=== PATIENT | female | born 1940 | race Caucasian/White ===

== ENCOUNTER → 2016-09-03 | Outpatient (CLI) | payer BC ==
[~2016-09-03] MED LIST: ASPEC81 PO; ASPI325T45 PO; CYAN10005 PO; GLIP10TA9 PO; LOSA100T65 PO; METF-384 PO; SIMV20TA2 PO; SIMV40TA2 PO
[2016-09-03 10:36] LABS: BASO % 0.3 %; BASO ABS # 0.02 K/uL (0-0.2); COMPLETE YES; EOS % 2.2 %; ESTIMATED AVERAGE GLUCOSE 301 mg/dl; HA1C FLAG Normal (Normal); IG% 0.3 %; LYMPH % 30.4 %; LYMPH ABS # 2.22 K/uL (1.2-3.4); MEAN CELL VOLUME 88.3 fL (80-100); MEAN CORPUSCULAR HEMOGLOBIN 29.1 pg (25-34); MEAN PLATELET VOLUME 10.6 fL (7.4-10.4); NEUT % 57.8 %; PLATELET COUNT 270 K/uL (130-400); RED BLOOD COUNT 4.19 M/uL (4.2-5.4); WHITE BLOOD COUNT 7.31 K/uL (4.8-10.8)
[2016-09-03 10:44] LABS: URINE APPEARANCE CLOUDY (CLEAR); URINE BILIRUBIN NEG (NEG); URINE COLOR YELLOW; URINE EPITHELIAL CELL AUTO >30 /lpf (0-5); URINE NITRITE NEG (NEG); URINE SPECIFIC GRAVITY 1.019 (1.000-1.030); UROBILINOGEN NEG (NEG); ZZUR CULT IF INDIC CLEAN CATCH YES
[2016-09-03 10:56] LABS: MANUAL MICROSCOPIC REQUIRED? NO; REVIEW REQ? YES
[2016-09-03 11:18] LABS: URINE PROTIEN/CREAT RATIO 0.2 (0-0.2); URINE TOTAL PROTEIN 12.5 mg/dl (0-11.9)
[2016-09-03 12:18] LABS: ALT/SGPT 20 U/L (12-78); AST/SGOT 12 U/L (15-37); BLOOD UREA NITROGEN 20 mg/dl (7-18); BUN/CREATININE RATIO 26.6 (10-20); CARBON DIOXIDE 29 mmol/L (21-32); CHLORIDE 101 mmol/L (98-107); CHOLESTEROL 145 mg/dl (0-200); CHOLESTEROL/HDL RATIO 2.2; CREATININE 0.74 mg/dl (0.60-1.20); GLUCOSE 248 mg/dl (70-99); HDL CHOLESTEROL 66 mg/dl; LDL CHOLESTEROL CALCULATED 66 mg/dl; POTASSIUM 4.4 mmol/L (3.5-5.1); SODIUM 138 mmol/L (136-145); TRIGLYCERIDES 64 mg/dl (0-150); VERY LOW DENSITY LIPOPROT CALC 13 mg/dl
[2016-09-03 12:19] LABS: CALCIUM 9.2 mg/dl (8.5-10.1)
== END | disposition home or self-care (01) ==
LOC: C.LAB1850 09:35
PROVIDERS: ATTEND Internal Medicine
DX: E11.9 Type 2 diabetes mellitus without complications (principal); I10 Essential (primary) hypertension; E78.00 Pure hypercholesterolemia, unspecified

== ENCOUNTER → 2016-11-21 | Day surgery (SDC) | payer BC ==
[2016-11-14 11:53] VITALS: Ht 157.5 cm; Wt 71.8 kg
[~2016-11-21] VITALS: Ht 157.5 cm; Wt 71.8 kg
[~2016-11-21] MED LIST changes: -ASPEC81 PO; +EpHEDrine SULFATE INJ 50 MG/ML AMP ONE; +LIDOCAINE HCL 2% 2 ML VIAL (20MG/ML) ONE; +PROPOFOL IV EMULSION 10 MG/ML 20 ML VIAL IV ONE; -SIMV40TA2 PO; +SODIUM CHLORIDE 0.9% 500ML 500 ML IV ONE
--- NOTE | 2016-11-21 08:52 | Endo History and Physical ---
History & Physical Date of Service: Nov 21, 2016. Chief Complaint: Family history of colon cancer (Mother) Referring Physician: Dr. Sim History of Present Illness 76 yo CF who presents for colonoscopy secondary to family history of colon cancer (Mother). Past Medical History Diabetes, Anxiety, Cancer, High Cholesterol, Hypertension, Depression Past Surgical History Hx Cardiac Surgery: No Hx Internal Defibrillator: No Hx Pacemaker: No Hx Abdominal Surgery: No Hx of Implantable Prosthesis: No Hx Post-Op Nausea and Vomiting: No Hx Cancer Surgery: Yes (SKIN CANCER REMOVAL FROM RT ARM) Hx Thoracic Surgery: No Hx Orthopedic: No Hx Urinary Tract Surgery: No Family History Colon CA Social History Smoking Status: Never Smoker Hx Substance Use: No Hx Alcohol Use: No Allergies Coded Allergies: NO KNOWN DRUG ALLERGIES (Verified Allergy, Unknown, ., 11/14/16) Uncoded Allergies: METAL (Allergy, Unknown, RASH, 11/14/16) Current Medications Reported Home Medications Medications Dose Route/Sig Max Daily Dose Days Date Category Vitamin B-12 (Cyanocobalamin) 1,000 Mcg Tab 1,000 Mcg PO DAILY 11/14/16 Reported Zocor (Simvastatin) 20 Mg Tab 20 Mg PO QPM 11/14/16 Reported Aspirin 325 Mg Tab 650 Mg PO UD PRN 02/24/15 Reported Glucophage (Metformin Hcl) 1,000 Mg Tab 1,000 Mg PO BID 02/24/15 Reported Cozaar (Losartan Potassium) 100 Mg Tab 100 Mg PO QPM 02/24/15 Reported Glucotrol (Glipizide) 10 Mg Tab 10 Mg PO BID 02/24/15 Reported Vital Signs Weight (Kilograms): 71.82 Height (Feet): 5 Height (Inches): 2 Physical Exam General Appearance: WD/WN, no apparent distress Respiratory/Chest: Auscultation: breath sounds normal Cardiovascular: Heart Auscultation: RRR Abdomen: Bowel Sounds: normal Inspection & Palpation: soft, non-distended, no tenderness, guarding & rebound Assessment and Plan Assessment: 76 yo CF who presents for colonoscopy secondary to family history of colon cancer (Mother). Plan: Proceed with colonoscopy.
--- NOTE | 2016-11-21 09:56 | Discharge Instructions ---
Endoscopy Patient Instructions Date / Procedure(s) Performed Nov 21, 2016. Colonoscopy Allergy Information Coded Allergies: NO KNOWN DRUG ALLERGIES (Verified Allergy, Unknown, ., 11/14/16) Uncoded Allergies: METAL (Allergy, Unknown, RASH, 11/14/16) Discharge Date / Findings Nov 21, 2016. Internal hemorrhoids Medication Instructions Stopped Medication(s): Glipizide Metformin OK to resume all medications today as prescribed Reported Home Medications Medications Dose Route/Sig Max Daily Dose Days Date Category Vitamin B-12 (Cyanocobalamin) 1,000 Mcg Tab 1,000 Mcg PO DAILY 11/14/16 Reported Zocor (Simvastatin) 20 Mg Tab 20 Mg PO QPM 11/14/16 Reported Aspirin 325 Mg Tab 650 Mg PO UD PRN 02/24/15 Reported Glucophage (Metformin Hcl) 1,000 Mg Tab 1,000 Mg PO BID 02/24/15 Reported Cozaar (Losartan Potassium) 100 Mg Tab 100 Mg PO QPM 02/24/15 Reported Glucotrol (Glipizide) 10 Mg Tab 10 Mg PO BID 02/24/15 Reported Provider Instructions Activity Restrictions - No exercising or heavy lifting for 24 hours. - Do not drink alcohol the day of the procedure. - Do not drive a car or operate machinery until the day after the procedure. - Do not make any important decisions or sign important papers in 24 hours after the procedure. Following Day: - Return to full activity which may include returning to work/school. Diet Start your diet with liquids and light foods (jello, soup, juice, toast). Then eat your usual diet if not nauseated. Treatment For Common After Affects For mild abdominal pain, bloating, or excessive gas: - Rest - Eat lightly - Lie on right side Follow-Up Information Follow-up with Dr Sim as scheduled Anesthesia Information What You Should Know You have had a procedure that required some medicine to reduce anxiety and discomfort. This treatment is called moderate sedation. After receiving the treatment, you may be sleepy, but you will be able to breathe on your own. The effects of the treatment may last for several hours. Follow these instructions along with Activity/Diet recommendations noted above: * Do NOT do anything where dizziness or clumsiness would be dangerous. * Rest quietly at home today, then you can be up and about tomorrow. * Have a responsible person stay with you the rest of today. * You may have had an I.V. today. If so, you may take the dressing off later today. Recommendations Call your doctor if: * Trouble breathing * Continuous vomiting for more than 24 hours * Temperature above 101 degrees * Severe abdominal pain or bloating * Pain not relieved by pain medicine ordered * There is increased drainage or redness from any incision * A large amount of rectal bleeding greater than 2-3 tablespoons. (If you had a polyp/s removed or have hemorrhoids, a small amount of blood - from the rectum is to be expected.) * You have any unanswered questions or concerns. IN THE EVENT OF A SERIOUS EMERGENCY, GO TO THE NEAREST EMERGENCY ROOM Your discharge instructions were prepared by provider José Miguel Wilson. Patient Instructions Signature Page Parisa Lara Patient (or Guardian) Signature/Date: I have read and understand the instructions given to me by my caregivers. Caregiver/RN/Doctor Signature/Date: The above-named patient and/or guardian has received patient instructions on this date. + Original Patient Signature Page (only) stays with chart. Please make copy for patient.
--- NOTE | 2016-11-21 10:06 | GI REPORT ---
Procedure Date: 11/21/2016 9:24 AM THIS REPORT HAS BEEN AMENDED Addendum Number: 1 Addendum Date: 11/21/2016 12:13:52 PM No specimens were obtained on this exam, and therefore, no pathology is pending. No repeat colonoscopy based on patient's age and lack of adenomas. Procedure: Colonoscopy Indications: Family history of colon cancer in a first-degree relative Medicines: Monitored Anesthesia Care Complications: No immediate complications. Estimated Blood Loss: Estimated blood loss: none. Procedure: Pre-Anesthesia Assessment: - Prior to the procedure, a History and Physical was performed, and patient medications and allergies were reviewed. The patient's tolerance of previous anesthesia was also reviewed. The risks and benefits of the procedure and the sedation options and risks were discussed with the patient. All questions were answered, and informed consent was obtained. Prior Anticoagulants: The patient has taken aspirin, last dose was more than 28 days prior to procedure. ASA Grade Assessment: III - A patient with severe systemic disease. After reviewing the risks and benefits, the patient was deemed in satisfactory condition to undergo the procedure. After I obtained informed consent, the scope was passed under direct vision. Throughout the procedure, the patient's blood pressure, pulse, and oxygen saturations were monitored continuously. The scope was introduced through the anus and advanced to the terminal ileum. The colonoscopy was performed without difficulty. The patient tolerated the procedure well. The quality of the bowel preparation was good. The terminal ileum, ileocecal valve, appendiceal orifice, and rectum were photographed. Findings: Non-bleeding internal hemorrhoids were found during retroflexion. The hemorrhoids were small. Impression: - Non-bleeding internal hemorrhoids. - No specimens collected. Recommendation: - Resume previous diet. - Continue present medications. - Repeat colonoscopy for surveillance based on pathology results. - Return to primary care physician as previously scheduled. José Miguel Wilson, DO 11/21/2016 10:05:26 AM This report has been signed electronically. Note Initiated On: 11/21/2016 9:24 AM I attest to the content of the Intraoperative Record and orders documented therein, exceptions below José Miguel Wilson, DO 11/21/2016 12:14:45 PM This report has been signed electronically.
--- NOTE | 2016-11-21 10:10 | Anesthesiology Progress Note ---
Anesthesia Post Op Note Date & Time Nov 21, 2016 at 10:10 Vital Signs Pain Intensity: 0 Vital Signs Past 12 Hours Date Time Temp Pulse Resp B/P (MAP) Pulse Ox O2 Delivery O2 Flow Rate FiO2 11/21/16 10:04 92 20 101/61 (74) 100 Room Air 11/21/16 09:49 85 20 94/41 (58) 93 Room Air 11/21/16 08:40 37.0 85 20 141/89 (106) 100 Room Air Notes Mental Status: alert / awake / arousable, participated in evaluation Pt Amnestic to Procedure: Yes Nausea / Vomiting: adequately controlled Pain: adequately controlled Airway Patency, RR, SpO2: stable & adequate BP & HR: stable & adequate Hydration State: stable & adequate Anesthetic Complications: no major complications apparent
[2016-11-21 10:16] VITALS: BP 122/67; PULSE 94; O2SAT 100
== END | disposition home or self-care (01) ==
LOC: C.GI 08:24
PROVIDERS: ATTEND Internal Medicine
DX: Z80.0 Family history of malignant neoplasm of digestive organs (principal); K64.8 Other hemorrhoids; I10 Essential (primary) hypertension; E11.9 Type 2 diabetes mellitus without complications; F32.9 Major depressive disorder, single episode, unspecified; E78.00 Pure hypercholesterolemia, unspecified; Z79.899 Other long term (current) drug therapy

== ENCOUNTER → 2016-12-04 | Outpatient (CLI) | payer BC ==
[~2016-12-04] MED LIST changes: -EpHEDrine SULFATE INJ 50 MG/ML AMP ONE; -LIDOCAINE HCL 2% 2 ML VIAL (20MG/ML) ONE; -PROPOFOL IV EMULSION 10 MG/ML 20 ML VIAL IV ONE; -SODIUM CHLORIDE 0.9% 500ML 500 ML IV ONE
[2016-12-04 14:04] LABS: ESTIMATED AVERAGE GLUCOSE 240 mg/dl; HA1C FLAG Normal (Normal)
== END | disposition home or self-care (01) ==
LOC: C.LAB1850 12:36
PROVIDERS: ATTEND Nurse Practitioner Family
DX: E11.65 Type 2 diabetes mellitus with hyperglycemia (principal)

== ENCOUNTER → 2017-03-06 | Outpatient (CLI) | payer BC ==
[2017-03-06 10:30] LABS: CREATININE RANDOM URINE 50.4 mg/dl
[2017-03-06 10:41] LABS: RATIO 10.7 mcg/mg (0-30.0)
[2017-03-06 11:14] LABS: ESTIMATED AVERAGE GLUCOSE 197 mg/dl; HA1C FLAG Normal (Normal)
== END | disposition home or self-care (01) ==
LOC: C.LAB1850 09:11
PROVIDERS: ATTEND Nurse Practitioner Family
DX: E11.65 Type 2 diabetes mellitus with hyperglycemia (principal)

== ENCOUNTER 2020-09-11 13:15 | Inpatient (IN) ==
[2020-09-11] MEDS ORDERED: ONDANSETRON INJ 2 MG/ML 2 ML VIAL IV STA (13:51)
[2020-09-11] MEDS ORDERED: MoRPHine SULFATE 4 MG/ML 1 ML CARP\\VIAL IV PRN (13:51)
[2020-09-11] MEDS ORDERED: SODIUM CHLORIDE 0.9% 500 ML IV SCH (14:00)
--- NOTE | 2020-09-11 14:06 | Emergency Department Note ---
Impression & Plan Closed fracture of left hip, Dizziness, Fall ED Provider Note NAME: EZ COBB AGE: 80 SEX: F : 1940 ARRIVES VIA: Walk-In INFORMANT: Patient, ED PROVIDER(S): Miguel Carballo DO CHIEF COMPLAINT: Hip pain HPI: The patient is a 80-year-old female who presented to the emergency department through triage for an evaluation of hip pain. The patient was walking in her driveway yesterday when she became very dizzy and lightheaded. She fell to the ground onto her left side. She states that she was able to ambulate afterwards with significant pain in her left leg. The pain continued to worsen throughout the day. Her son brought her to the emergency department for further evaluation. She did not strike her head. She denies having any neck pain. She states that when she was walking she became dizzy and felt as though she was going to pass out. She denies having any chest pain or difficulty breathing at this time. She denies having any leg swelling or leg pain. She has no abdominal pain. She does complain of low back pain but mostly it is in her left buttocks into her left hip. The patient states that she has a history of arthritis in that hip but has never had surgery on the hip. She has been seen by orthopedics in the past and was diagnosed with arthritis. She also claims to have pain the whole way down her leg. The patient states that she has very severe pain with any movement or ambulation. She rates the pain moderate to severe with any movement. Weightbearing is also severe pain pain is only minimally improved with lying flat. ROS: See above HPI for pertinent positives & negatives. A total of 10 systems reviewed and were otherwise negative. PAST MEDICAL HISTORY: See Below PAST SURGICAL HISTORY: See Below FAMILY HISTORY: See Below SOCIAL HISTORY: See Below HOME MEDICATIONS: See Below ALLERGIES: See Below VITALS: See Below PHYSICAL EXAMINATION: GENERAL: The patient is awake and alert. The patient is very anxious appearing and appears to be in significant pain. EYES: The conjunctivae are clear. The pupils are round and reactive. EARS, NOSE, MOUTH AND THROAT: The nose is without any evidence of any deformity. NECK: The neck is nontender and supple. RESPIRATORY: Normal respiratory effort is noted there is no evidence of wheezing rhonchi or rales CARDIOVASCULAR: Regular rate and rhythm noted there no murmurs rubs or gallops normal S1 normal S2. GASTROINTESTINAL: The abdomen is soft. Abdomen is nontender. BACK: No midline tenderness or or step-off noted range of motion in flexion extension as well as rotation no signs of muscle spasm noted MUSCULOSKELETAL/EXTREMITIES: The left lower extremity is rotated and shortened. There is severe pain with any range of motion testing of the left hip. There is also palpable tenderness over the left leg. There does not appear to be any deformity or pain with range of motion testing of the left knee or left ankle. SKIN: There is no obvious evidence of any rash. There are no petechiae, pallor or cyanosis noted. NEUROLOGIC: Patient is awake alert and oriented x3. MEDICAL DECISION MAKING: The patient is a 80-year-old female who presented to the emergency department for an evaluation of hip pain. The patient was walking in her driveway yesterday and got very dizzy and fell onto her left side. She has been having increasing difficulty ambulating. She presented to the emergency department with severe left hip pain. I discussed the patient's laboratory and radiographic studies with her. She was treated with pain medication in the emergency department. She was feeling somewhat improved on reevaluation. Ultimately she was found to have a left hip fracture. I discussed her case with the on-call [facility] hospitalist. They have agreed to evaluate the patient in the emergency department for further management and disposition. Triage Nursing notes reviewed. Prior medical records reviewed Vital Signs: reviewed and remarkable for elevated blood pressure. Differential diagnosis: Fracture, dislocation, contusion, intra-abdominal, pneumothorax, intrathoracic, intracranial, neurologic, compartment syndrome, rhabdomyolysis, as well as other pathologies. ER treatment provided: See below Diagnostics interpreted by me: ECG: EKG was obtained in the emergency department. My interpretation is sinus tachycardia at 102 bpm. First-degree AV block was suggested. PVCs were noted. There was no acute ST segment abnormalities noted. This was compared to a tracing from February 262014. The ectopy is new compared the previous tracing. Otherwise no significant changes were noted. Cardiac Monitoring: An order was placed for continuous cardiac monitoring. The monitor shows a rate of 98 bpm with sinus rhythm. Laboratory studies: As stated above and show below. Imaging studies: See below Consultation(s): [id number]: I discussed this case with Dr Sandoval who was ui application developer for the [place] hospitalist group. Past Med/Surg History Medical History Bilateral leg edema Diabetes mellitus type II, uncontrolled Hx of basal cell carcinoma Hx of diabetic retinopathy Hypercholesterolemia Hypertension Iliotibial band syndrome Left groin pain Surgical History History of surgical removal of skin lesion from R arm Social History Smoking Status: Never smoker Hx Alcohol Use: Yes Alcohol type: wine Hx Substance Use: No Preferred Language: Mozambican Communication Ability: Effective [place] Required: No Beliefs That Will Affect Care: None Current Living Situation: Alone Feels Safe at Home: Yes Safety Concerns: Feels Safe At This Time Assistive Devices: Denture - Upper and Glasses Allergies Allergies Allergy/AdvReac Type Severity Reaction Status Date / Time No Known Drug Allergies Allergy Unknown . Verified 09/11/20 15:43 METAL Allergy Unknown RASH Uncoded 09/11/20 15:43 Home Meds Home Medications Medication Instructions Recorded Confirmed glipizide 10 mg tablet, extended 10 mg PO QAM tab 07/31/20 09/11/20 release 24 hr losartan 100 mg PO QAM 09/11/20 09/11/20 Previous Rx's Medication Instructions Recorded diclofenac sodium 1 % topical gel 4 g TOPICAL QID #100 g 01/31/20 metformin 1,000 mg tablet 1,000 mg PO BID #180 tab 06/14/20 simvastatin 20 mg tablet 20 mg PO HS #90 tab 07/31/20 Results & Data (ED) Vital Signs Vital Signs - 24 hr 09/11/20 13:19 09/11/20 14:21 09/11/20 14:30 Temperature 36.3 C L Temperature Source Skin Pulse Rate 77 104 H 100 H Pulse Rate from SpO2 Sensor 84 Respiratory Rate 18 20 20 Respiratory Effort / Characteristics Non-Labored Spontaneous Respiratory Depth Normal Respiratory Pattern Regular Blood Pressure 145/83 H 137/79 Blood Pressure Mean 103 98 Blood Pressure Position Sitting Pulse Oximetry 95 95 93 Oxygen Delivery Method Room Air Room Air Sepsis Recent Fever Within 48 Hours No Sepsis New/Unexplained Change in Mental Status N/A Sepsis Action Taken by Nursing No Action Required 09/11/20 14:35 09/11/20 15:00 09/11/20 15:30 Temperature Temperature Source Pulse Rate 106 H 105 H 108 H Pulse Rate from SpO2 Sensor 92 H 103 H 104 H Respiratory Rate 20 7 L 15 Respiratory Effort / Characteristics Respiratory Depth Respiratory Pattern Blood Pressure 164/96 H 161/94 H Blood Pressure Mean 118 116 Blood Pressure Position Pulse Oximetry 92 100 99 Oxygen Delivery Method Sepsis Recent Fever Within 48 Hours Sepsis New/Unexplained Change in Mental Status Sepsis Action Taken by Nursing 09/11/20 16:00 09/11/20 16:54 09/11/20 17:00 Temperature Temperature Source Pulse Rate 95 H 98 H 95 H Pulse Rate from SpO2 Sensor 96 H 97 H 95 H Respiratory Rate 3 L 13 7 L Respiratory Effort / Characteristics Respiratory Depth Respiratory Pattern Blood Pressure 148/86 H 142/79 H 141/76 H Blood Pressure Mean 106 100 97 Blood Pressure Position Pulse Oximetry 99 93 94 Oxygen Delivery Method Sepsis Recent Fever Within 48 Hours Sepsis New/Unexplained Change in Mental Status Sepsis Action Taken by [facility] Medications Current Medication List: was personally reviewed by me Laboratory Data Attestation: I reviewed the patient's lab results. Result diagrams: 09/11/20 17:37 09/11/20 17:37 Lab Results 09/11/20 09/11/20 Range/Units 15:29 15:29 COVID-19 Eval Order Covid19 at [facility] SARS-CoV-2 (PCR) POSITIVE A* (Negative) Administered Medications Insulin Aspart (Insulin Aspart 100 Units/Ml 3 Ml Pen) 0 units SC ACHS JET Stop: 10/11/20 20:59 Last Admin: 09/11/20 22:35 Dose: 1 units Documented by: [id number] Cosigned by: [id number] Simvastatin (Simvastatin 20 Mg Tab) 20 mg PO HS JET Stop: 10/11/20 20:59 Last Admin: 09/11/20 22:33 Dose: 20 mg Documented by: [id number] Discontinued Medications Heparin Sodium (Porcine) (Heparin Sod 5,000 Unit/0.5 Ml Vial) 5,000 units SQ Q12 JET Stop: 10/11/20 20:59 Last Admin: 09/11/20 23:12 Dose: Not Given Documented by: [id number] Sodium Chloride (Nss) 500 mls @ 999 mls/hr IV .Q31M JET Stop: 09/11/20 14:30 Last Infusion: 09/11/20 15:03 Dose: 999 mls/hr Documented by: [id number] Admin: 09/11/20 14:31 Dose: 999 mls/hr Documented by: [id number] Morphine Sulfate (Morphine Sulfate 4 Mg/Ml 1 Ml Carp\Vial) 4 mg IV Q30M PRN PRN Reason: Pain Stop: 09/25/20 13:50 Last Admin: 09/11/20 14:30 Dose: 4 mg Documented by: [id number] Ondansetron HCl (Ondansetron Inj 2 Mg/Ml 2 Ml Vial) 4 mg IV NOW STA Stop: 09/11/20 13:52 Last Admin: 09/11/20 14:30 Dose: 4 mg Documented by: [id number] Imaging Data Radiologist's Impression: Cervical Spine CT 09/11/20 13:[address] DOSE: HISTORY: fall TECHNIQUE: Multiaxial CT images of the cervical spine were performed and reformatted in the sagittal and coronal plane without the use of contrast. A dose lowering technique was utilized adhering to the principles of ALARA. COMPARISON: None. FINDINGS: No fractures. No subluxation. Prevertebral soft tissues and the C1-C2 interval are intact. No pneumothorax. Broad-based posterior disc osteophyte complexes at C3-C4, C4-C5, C5-C6 resulting in mild central canal narrowing. IMPRESSION: No fractures within the cervical spine. ACT 112: Negative or not required by law. Electronically signed by: Lan Shrestha M.D. 09/11/2020 4:52 PM Chest X-Ray 09/11/20 13:51 XR chest 1V portable CLINICAL HISTORY: weakness COMPARISON STUDY: 02/24/2015 FINDINGS: The heart is borderline enlarged. There is mild prominence elevation of interstitium suggesting mild pulmonary vascular congestion. There is no lobar consolidation. There are no significant pleural effusions.[ IMPRESSION: 1. Mild elevation of the interstitium, likely secondary to mild pulmonary vascular congestion. No evidence of lobar consolidation ACT 112: Negative or not required by law. Electronically signed by: El Robles M.D. 09/11/2020 3:[address] 09/11/20 13:[address] DOSE: 936.71 mGy.cm HISTORY: fall TECHNIQUE: Multiaxial CT images of the head were performed without the use of intravenous contrast. Automated exposure control was utilized for this study. A dose lowering technique was utilized adhering to the principles of ALARA. Comparison: None. Findings: The paranasal sinuses and mastoid air cells are clear. The calvarium and skull base are intact. The ventricles and sulci are within normal limits. There is no mass, hematoma, midline shift, or acute infarct. Impression: No acute intracranial abnormality. ACT 112: Negative or not required by law. Electronically signed by: Lan Shrestha M.D. 09/11/2020 4:47 PM Hip/Pelvis X-Ray 09/11/20 13:51 XR hip LT 2V w pelvis HISTORY: 80 years-old Female fall . Acute pelvic and left hip pain status post fall COMPARISON: Left hip radiographs 01/27/2020 TECHNIQUE: AP view the pelvis with 2 views of the left hip FINDINGS: There is an acute fracture there is an acute transcervical fracture of the left proximal femur. Mild cortical impaction with lateral displacement measuring up to 10 mm. Soft tissue swelling lateral to left hip. Mild to moderate osteoarthritis of the hips. No dislocation or avascular necrosis. Arterial calcifications. 1.8 cm calcification of the mid pelvis may reflect a calcified uterine fibroid. IMPRESSION: Acute mildly displaced and impacted transcervical fracture of the left femur. ACT 112: Negative or not required by law. The above report was generated using voice recognition software. It may contain grammatical, syntax or spelling errors. Electronically signed by: Blaine Sherman M.D. 09/11/2020 3:38 PM Tibia/Fibula X-Ray 09/11/20 13:51 XR tibia fibula LT 2V CLINICAL HISTORY: Left lower leg pain following fall. COMPARISON: Left knee radiographs August 01, 2020. Left tibia and fibular radiograph July 30, 2019. FINDINGS: No acute fracture of the left tibia or fibula is identified. There is moderate vascular calcification. Chondrocalcinosis within the menisci of the left knee. There are suspected soft tissue swelling overlying the proximal to mid shaft of the left tibia. IMPRESSION: No acute fracture of the left tibia or fibula. ACT 112: Negative or not required by law. Electronically signed by: Zach Chang M.D. 09/11/2020 3:38 PM Discharge Plan Visit Data Chief Complaint: Fall Stated Complaint: FALL LAST NIGHT ON STONES ON LEFT HIP,PAIN IN HIP ED Provider: Miguel Carballo Discharge Problem: Closed fracture of left hip, Dizziness, Fall Patient Disposition: Admitted As Inpatient Condition: Good Discharge Instructions Interventions: ED Discharge Assessment Last Done: 09/11/20 20:48 Discharge Problem: Closed fracture of left hip Qualifiers: Encounter type: initial encounter Qualified Code(s): S72.002A - Fracture of unspecified part of neck of left femur, initial encounter for closed fracture Fall Qualifiers: Encounter type: initial encounter Qualified Code(s): W19.XXXA - Unspecified fall, initial encounter
--- NOTE | 2020-09-11 15:36 | XRay Report ---
XR chest 1V portable CLINICAL HISTORY: weakness COMPARISON STUDY: 02/24/2015 FINDINGS: The heart is borderline enlarged. There is mild prominence elevation of interstitium sugges ting mild pulmonary vascular congestion. There is no lobar consolidation. There are no significant pl eural effusions.[ IMPRESSION: 1. Mild elevation of the interstitium, likely secondary to mild pulmonary vascular congestion. No jimi dence of lobar consolidation ACT 112: Negative or not required by law. Electronically signed by: El Robles M.D. 09/11/2020 3:35 PM
--- NOTE | 2020-09-11 15:40 | XRay Report ---
XR tibia fibula LT 2V CLINICAL HISTORY: Left lower leg pain following fall. COMPARISON: Left knee radiographs August 01, 2020. Left tibia and fibular radiograph July 30, 2019. FINDINGS: No acute fracture of the left tibia or fibula is identified. There is moderate vascular ca lcification. Chondrocalcinosis within the menisci of the left knee. There are suspected soft tissue s welling overlying the proximal to mid shaft of the left tibia. IMPRESSION: No acute fracture of the left tibia or fibula. ACT 112: Negative or not required by law. Electronically signed by: Zach Chang M.D. 09/11/2020 3:38 PM
--- NOTE | 2020-09-11 15:40 | XRay Report ---
XR hip LT 2V w pelvis HISTORY: 80 years-old Female fall . Acute pelvic and left hip pain status post fall COMPARISON: Left hip radiographs 01/27/2020 TECHNIQUE: AP view the pelvis with 2 views of the left hip FINDINGS: There is an acute fracture there is an acute transcervical fracture of the left proximal femur. Mild cortical impaction with lateral displacement measuring up to 10 mm. Soft tissue swelling lateral to l eft hip. Mild to moderate osteoarthritis of the hips. No dislocation or avascular necrosis. Arterial calcifications. 1.8 cm calcification of the mid pelvis may reflect a calcified uterine fibroid. IMPRESSION: Acute mildly displaced and impacted transcervical fracture of the left femur. ACT 112: Negative or not required by law. The above report was generated using voice recognition software. It may contain grammatical, syntax o r spelling errors. Electronically signed by: Blaine Sherman M.D. 09/11/2020 3:38 PM
--- NOTE | 2020-09-11 16:49 | CT Scan Report ---
HEAD CT NONCONTRAST CT DOSE: 936.71 mGy.cm HISTORY: fall TECHNIQUE: Multiaxial CT images of the head were performed without the use of intravenous contrast. A utomated exposure control was utilized for this study. A dose lowering technique was utilized adheri ng to the principles of ALARA. Comparison: None. Findings: The paranasal sinuses and mastoid air cells are clear. The calvarium and skull base are int act. The ventricles and sulci are within normal limits. There is no mass, hematoma, midline shift, or acute infarct. Impression: No acute intracranial abnormality. ACT 112: Negative or not required by law. Electronically signed by: Lan Shrestha M.D. 09/11/2020 4:47 PM
--- NOTE | 2020-09-11 16:53 | CT Scan Report ---
CERVICAL SPINE CT CT DOSE: HISTORY: fall TECHNIQUE: Multiaxial CT images of the cervical spine were performed and reformatted in the sagittal and coronal plane without the use of contrast. A dose lowering technique was utilized adhering to th e principles of ALARA. COMPARISON: None. FINDINGS: No fractures. No subluxation. Prevertebral soft tissues and the C1-C2 interval are intact. No pneumothorax. Broad-based posterior disc osteophyte complexes at C3-C4, C4-C5, C5-C6 resulting in mild central canal narrowing. IMPRESSION: No fractures within the cervical spine. ACT 112: Negative or not required by law. Electronically signed by: Lan Shrestha M.D. 09/11/2020 4:52 PM
--- NOTE | 2020-09-11 16:56 | History & Physical Report ---
Date of Service September 11, 2020 Assessment & Plan (1) Hip fracture: Transcervical fracture of left femur Admit to general medical bed Analgesia as needed for pain Consults orthopedics for further management, suspect patient will require operative repair Heparin 5000 subcu every 8h, hold prior to surgery (2) Diabetes mellitus type II, uncontrolled: Hold Metformin and glipizide for now Sliding scale insulin with meals. Patient is not on any basal insulin Check hemoglobin A1c (3) Hypercholesterolemia: Patient is on simvastatin 20 mg at home, continue equivalent dosing here (4) Hypertension: Mildly elevated blood pressure 142/79, likely secondary to acute issues Continue medications as per outpatient, appears to be only on losartan 100 mg daily History of Present Illness Chief Complaint: Fall Primary Care Provider: Noam Sim MD This is a 80-year-old female past history hyperlipidemia, type 2 diabetes mellitus, and hypertension who presents today status post fall. Patient is accompanied by her daughter, both are good historians. Patient tells me that yesterday evening she was ambulating down her walkway. This is gravel and has a steep grade to it. She tripped and fell, landing on her left side. She had significant pain as soon as she landed. She was not able to get up on her own power and her son had to help her up. She cannot bear any weight on the left leg. Patient spent the night dealing with the pain, however when she woke in the morning the pain was much worse she was brought to the emergency room by her family. Work-up revealed a left transcervical fracture of the femur. Patient is now being mated for further treatment. At the time my evaluation, patient tells me she has minimal pain in the left lateral hip, with some radiations into the groin if she moves. She is otherwise comfortable denies any other issues such as chest pain, shortness of breath, abdominal pain, palpitations, or other issues. Allergies Allergy/AdvReac Type Severity Reaction Status Date / Time No Known Drug Allergies Allergy Unknown . Verified 09/11/20 15:43 METAL Allergy Unknown RASH Uncoded 09/11/20 15:43 Home Medications Medication Instructions Recorded Confirmed Type diclofenac sodium 1 % topical gel 4 g TOPICAL QID #100 g 01/31/20 09/11/20 Rx metformin 1,000 mg tablet 1,000 mg PO BID #180 tab 06/14/20 09/11/20 Rx glipizide 10 mg tablet, extended 10 mg PO QAM tab 07/31/20 09/11/20 History release 24 hr simvastatin 20 mg tablet 20 mg PO HS #90 tab 07/31/20 09/11/20 Rx losartan 100 mg PO QAM 09/11/20 09/11/20 History Past Med/Surg History Medical History Bilateral leg edema Diabetes mellitus type II, uncontrolled Hx of basal cell carcinoma Hx of diabetic retinopathy Hypercholesterolemia Hypertension Iliotibial band syndrome Left groin pain Surgical History History of surgical removal of skin lesion from R arm Social History Smoking Status: Never smoker Feels Safe at Home: Yes Review of Systems Constitutional: no fever, no chills, no weakness, no weight loss and no weight gain Eyes: as per Subjective / HPI Respiratory: no cough, no chest congestion, no dyspnea and no dyspnea on exertion Cardiovascular: no chest pain, no orthopnea, no palpitations, no lightheadedness and no edema Gastrointestinal: no abdominal pain, no nausea, no vomiting, no constipation and no diarrhea/loose stools Genitourinary: no dysuria, no difficulty urinating, no urinary frequency, no urinary hesitancy, no urinary urgency and no flank pain Musculoskeletal: + joint pain and + problem reported; no back pain, no neck pain, no stiffness and no myalgia Integumentary: no rash Neurologic: no gait abnormality, no unsteadiness, no falls and no generalized weakness Physical Exam Constitutional: + frail appearing and cooperative; no acute distress Neck: trachea midline, no thyromegaly Respiratory: normal respiratory effort Auscultation: lungs clear to auscultation bilaterally; no crackles, no rales, no rhonchi and no wheezes Cardiovascular: Rate/Rhythm: regular rate and regular rhythm Heart Sounds: normal S1, normal S2 and + murmur Gastrointestinal (Abdomen): Inspection/Auscultation: abdomen normal to inspection Percussion/Palpation: abdomen soft; abdomen nontender, no guarding, abdomen not rigid and no hepatosplenomegaly Musculoskeletal: Left leg shorter, externally rotated. Distal pulses intact Skin: no rashes, warm and dry Results & Data Results & Data ([facility]) Vital Signs (Past 12 Hours) Vital Signs Temp Pulse Resp BP Pulse Ox 09/11/20 16:00 95 H 3 L 148/86 H 99 09/11/20 15:30 108 H 15 161/94 H 99 09/11/20 15:00 105 H 7 L 164/96 H 100 09/11/20 14:35 106 H 20 92 09/11/20 14:30 100 H 20 137/79 93 09/11/20 14:21 104 H 20 95 09/11/20 13:19 36.3 C L 77 18 145/83 H 95 Diagnostic Findings XR hip LT 2V w pelvis HISTORY: 80 years-old Female fall . Acute pelvic and left hip pain status post fall COMPARISON: Left hip radiographs 01/27/2020 TECHNIQUE: AP view the pelvis with 2 views of the left hip FINDINGS: There is an acute fracture there is an acute transcervical fracture of the left proximal femur. Mild cortical impaction with lateral displacement measuring up to 10 mm. Soft tissue swelling lateral to left hip. Mild to moderate osteoarthritis of the hips. No dislocation or avascular necrosis. Arterial calcifications. 1.8 cm calcification of the mid pelvis may reflect a calcified uterine fibroid. IMPRESSION: Acute mildly displaced and impacted transcervical fracture of the left femur. PG Care Time/CCT Total # of Minutes Spent Total Time Spent with Patient: Total time spent is greater than 50% in coordination of care (as documented) at patient's floor/unit and/or counseling patient: Coding Level of Care Code 24853 Initial Inpt Care Lvl 3 Diagnoses Hip fracture S72.009A Diabetes mellitus type II, uncontrolled E11.65 Hypercholesterolemia E78.00 Hypertension I10
[2020-09-11 17:57] LABS: Basophils # (auto) 0.01 K/uL (0-0.2); Basophils % (auto) 0.1 %; Eosinophils # (auto) 0.03 K/uL (0-0.5); Eosinophils % (auto) 0.3 %; Hematocrit (blood only) 31.6 % (37-47); Hemoglobin 10.6 g/dL (12.0-16.0); Immature Granulocytes # (auto) 0.02 K/uL (0.00-0.02); Immature Granulocytes % (auto) 0.2 %; Lymphocytes # (auto) 0.88 K/uL (1.2-3.4); Lymphocytes % (auto) 8.2 %; Mean Corpuscular Hemoglobin 30.5 pg (25-34); Mean Corpuscular Hgb Conc 33.5 g/dL (32-36); Mean Corpuscular Volume 91.1 fL (80-100); Mean Platelet Volume 10.7 fL (7.4-10.4); Monocytes # (auto) 0.89 K/uL (0.11-0.59); Monocytes % (auto) 8.3 %; Neutrophils # (auto) 8.84 K/uL (1.4-6.5); Neutrophils % (auto) 82.9 %; Platelet Count 225 K/uL (130-400); RDW Coefficient of Variation 13.7 % (11.5-14.5); RDW Standard Deviation 45.7 fL (36.4-46.3); Red Blood Count 3.47 M/uL (4.2-5.4); White Blood Count 10.67 K/uL (4.8-10.8)
[2020-09-11 18:08] LABS: INR 1.1 (0.9-1.1); Partial Thromboplastin Time 26.6 Seconds (21.0-31.0); Prothrombin Time 10.7 Seconds (9.0-12.0)
[2020-09-11 18:16] LABS: Alanine Aminotransferase 18 U/L (12-78); Albumin Level 3.2 gm/dl (3.4-5.0); Aspartate Aminotransferase 17 U/L (15-37); BUN Creatinine Ratio 29.8 (10-20); Blood Urea Nitrogen 15 mg/dl (7-18); Calcium 8.3 mg/dl (8.5-10.1); Carbon Dioxide 30 mmol/L (21-32); Chloride 104 mmol/L (98-107); Creatinine Clr Calc Pharmacy 73.3 ml/min; Est GFR (African American) 107.4 ml/min; Est GFR (Non-African American) 92.7 ml/min; Glucose 176 mg/dl (70-99); Magnesium 1.8 mg/dl (1.8-2.4); Potassium 3.8 mmol/L (3.5-5.1); Sodium 138 mmol/L (136-145)
[2020-09-11 18:27] LABS: Alkaline Phosphatase 55 U/L (45-117); Bilirubin,Total 0.6 mg/dl (0.2-1); Creatine Kinase 130 U/L (26-192); Globulin 3.1 gm/dl (2.5-4.0); Total Protein 6.3 gm/dl (6.4-8.2); Troponin I < 0.015 ng/ml (0-0.045)
[2020-09-11] MEDS ORDERED: GLUCOSE 40% GEL 15 GM TUBE PO PRN (19:21)
[2020-09-11] MEDS ORDERED: GLUCOSE 10 TABS/TUBE PO PRN (19:21)
[2020-09-11] MEDS ORDERED: CARBOHYDRATES FOR HYPOGLYCEMIA PO PRN (19:21)
[2020-09-11] MEDS ORDERED: DEXTROSE 50% 50 ML SYRINGE IV PRN (19:21)
[2020-09-11] MEDS ORDERED: GLUCAGON FOR INJ 1 MG VIAL SQ PRN (19:21)
[2020-09-11] MEDS ORDERED: HEPARIN SOD 5,000 UNIT/0.5 ML VIAL SQ SCH (21:00)
[2020-09-11] MEDS ORDERED: INSULIN ASPART 100 UNITS/ML 3 ML PEN SC SCH (21:00)
[2020-09-11 21:04] LABS: Appearance Urine Clear (Clear); Bacteria Urine Automated Negative (Negative); Bilirubin Urine Negative (Negative); Blood Urine Negative (Negative); Color Urine Yellow; Glucose Urine UA Trace (Negative); Ketones Urine Trace (Negative); Leukocyte Esterase Urine 1+ (Negative); Nitrite Urine Negative (Negative); Protein Urine Negative (Negative); RBC Urine Automated 0-4 /hpf (0-4); Specific Gravity Urine 1.016 (1.000-1.030); Urobilinogen Urine Negative (Negative); pH Urine 6.5 (4.5-7.5)
[2020-09-11] MEDS ORDERED: ceFAZolin 2000MG 2,000 MG/15 ML SYR IV SCH (22:00)
[2020-09-11] MEDS: SIMVASTATIN 20 MG TAB PO SCH (22:33)
[2020-09-12] MEDS ORDERED: Nursing to Pharmacy Communication SCH ×2 (02:15→21:45)
[2020-09-12] MEDS ORDERED: ceFAZolin 2000MG 2,000 MG/15 ML SYR IV SCH (06:00)
--- NOTE | 2020-09-12 06:32 | Electrocardiogram Report ---
Test Reason : Blood Pressure : / mmHG Vent. Rate : 102 BPM Atrial Rate : 102 BPM P-R Int : 180 ms QRS Dur : 068 ms QT Int : 344 ms P-R-T Axes : 059 -16 065 degrees QTc Int : 448 ms Sinus tachycardia with frequent Premature ventricular complexes Otherwise normal ECG When compared with ECG of 26-FEB-2015 06:30, Premature ventricular complexes are now Present Confirmed by Bernardo Suarez ([id number]) on 09/12/2020 6:32:23 AM Referred By: REFERRED SELF Confirmed By:Bernardo Suarez
--- NOTE | 2020-09-12 06:40 | Orthopedic Consultation ---
Date of Service September 12, 2020 Assessment & Plan (1) Closed fracture of left hip: I discussed the diagnosis and treatment options with her at bedside. I did recommend a left hip hemiarthroplasty.She would like to proceed. She understands the risk, benefits, and alternatives to the procedure. She is currently n.p.o. and on the operating room schedule for later today. History of Present Illness Reason for Consultation: Left femoral neck fracture . Requesting Physician: . Attending Physician: Eulalio Sandoval DO Parisa is a pleasant 80-year-old female who lives by herself. She is a community ambulator without assistance. Unfortunately she fell yesterday. She had immediate left hip pain. She came to the emergency room where radiographs demonstrated a displaced left femoral neck fracture. She was admitted to the hospitalist service. She did test positive for Covid. Orthopedics was consulted to evaluate and treat. . Allergies Allergy/AdvReac Type Severity Reaction Status Date / Time No Known Drug Allergies Allergy Unknown . Verified 09/11/20 15:43 METAL Allergy Unknown RASH Uncoded 09/11/20 15:43 Home Medications Medication Instructions Recorded Confirmed Type diclofenac sodium 1 % topical gel 4 g TOPICAL QID #100 g 01/31/20 09/11/20 Rx metformin 1,000 mg tablet 1,000 mg PO BID #180 tab 06/14/20 09/11/20 Rx glipizide 10 mg tablet, extended 10 mg PO QAM tab 07/31/20 09/11/20 History release 24 hr simvastatin 20 mg tablet 20 mg PO HS #90 tab 07/31/20 09/11/20 Rx losartan 100 mg PO QAM 09/11/20 09/11/20 History Past Med/Surg History Medical History Bilateral leg edema Diabetes mellitus type II, uncontrolled Hx of basal cell carcinoma Hx of diabetic retinopathy Hypercholesterolemia Hypertension Iliotibial band syndrome Left groin pain Surgical History History of surgical removal of skin lesion from R arm Social History Smoking Status: Never smoker Hx Alcohol Use: Yes Alcohol type: wine Hx Substance Use: No Preferred Language: Mongolian Communication Ability: 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 Physical Exam On physical examination of the left hip, her leg lengths are about equal. She has pain with logroll of her left leg. All of her pains in her left groin. . Constitutional WD/WN, vitals as above Eyes PERRL, conjunctivae normal, anicteric sclerae ENMT external ear and nose normal, oropharynx normal Neck trachea midline, no thyromegaly Respiratory normal respiratory effort Cardiovascular RRR, no murmur, no edema Gastrointestinal (Abdomen) normal bowel sounds, soft, nontender, no hepatosplenomegaly Psychiatric A+Ox3, euthymic affect Results & Data Results & Data Laboratory Results . Diagnostic Findings X-rays of the left hip do show a displaced left femoral neck fracture. . PG Care Time/CCT Total # of Minutes Spent Total Time Spent with Patient: Total time spent is greater than 50% in coordination of care (as documented) at patient's floor/unit and/or counseling patient: Coding Level of Care Code 68361 Inpt Consult Level 4 (57 - DECISION FOR SURGERY) Diagnoses Closed fracture of left hip S72.002A Encounter type: initial encounter (1) Closed fracture of left hip Encounter type: initial encounter Qualified Code(s): S72.002A - Fracture of unspecified part of neck of left femur, initial encounter for closed fracture
[2020-09-12] MEDS: INSULIN ASPART 100 UNITS/ML 3 ML PEN SC SCH ×4 (07:12→22:53)
[2020-09-12] MEDS: LOSARTAN POTASSIUM 50 MG TAB PO SCH (08:07)
[2020-09-12] MEDS: MoRPHine SULFATE 2 MG/ML CARP IV PRN ×2 (08:07→16:33)
[2020-09-12 08:34] LABS: Basophils # (auto) 0.01 K/uL (0-0.2); Basophils % (auto) 0.1 %; Eosinophils # (auto) 0.18 K/uL (0-0.5); Eosinophils % (auto) 1.7 %; Hematocrit (blood only) 33.3 % (37-47); Hemoglobin 10.9 g/dL (12.0-16.0); Immature Granulocytes # (auto) 0.02 K/uL (0.00-0.02); Immature Granulocytes % (auto) 0.2 %; Lymphocytes # (auto) 1.24 K/uL (1.2-3.4); Lymphocytes % (auto) 11.8 %; Mean Corpuscular Hemoglobin 29.9 pg (25-34); Mean Corpuscular Hgb Conc 32.7 g/dL (32-36); Mean Corpuscular Volume 91.2 fL (80-100); Mean Platelet Volume 11.2 fL (7.4-10.4); Monocytes # (auto) 1.09 K/uL (0.11-0.59); Monocytes % (auto) 10.4 %; Neutrophils # (auto) 7.93 K/uL (1.4-6.5); Neutrophils % (auto) 75.8 %; Platelet Count 215 K/uL (130-400); RDW Coefficient of Variation 13.9 % (11.5-14.5); RDW Standard Deviation 46.1 fL (36.4-46.3); Red Blood Count 3.65 M/uL (4.2-5.4); White Blood Count 10.47 K/uL (4.8-10.8)
[2020-09-12 08:44] LABS: Prothrombin Time 10.6 Seconds (9.0-12.0)
[2020-09-12 09:05] LABS: BUN Creatinine Ratio 31.2 (10-20); Calcium 9.1 mg/dl (8.5-10.1); Creatinine Clr Calc Pharmacy 85.3 ml/min; Est GFR (African American) 112.9 ml/min; Est GFR (Non-African American) 97.4 ml/min; Magnesium 1.7 mg/dl (1.8-2.4); Potassium 3.7 mmol/L (3.5-5.1)
[2020-09-12 09:17] LABS: Estimated Average Glucose 180 mg/dl; Hemoglobin A1C 7.9 % (4.5-5.6)
--- NOTE | 2020-09-12 11:26 | Anesthesiology Consultation ---
Date of Service September 12, 2020 Assessment & Plan (1) Encounter for pre-operative examination: Chart Review Chart Review: Acceptable Risk for Surgery and Patient NOT seen in Pre Admission Testing Consults Requested none History Surgery Operation Date: 09/12/20 11:50 Proposed Procedures p Left Hip Hemiarthroplasty Cemented Biomet - Shamar Keller MD Height/Weight Height: 5 ft 2 in Weight: 57.606 kg Allergies Allergy/AdvReac Type Severity Reaction Status Date / Time No Known Drug Allergies Allergy Unknown . Verified 09/11/20 15:43 METAL Allergy Unknown RASH Uncoded 09/11/20 15:43 Medications Home Medications Medication Instructions Recorded Confirmed Last Taken diclofenac sodium 1 % topical gel 4 g TOPICAL QID #100 g 01/31/20 09/11/20 Unknown metformin 1,000 mg tablet 1,000 mg PO BID #180 tab 06/14/20 09/11/20 09/11/20 glipizide 10 mg tablet, extended 10 mg PO QAM tab 07/31/20 09/11/20 09/10/20 release 24 hr simvastatin 20 mg tablet 20 mg PO HS #90 tab 07/31/20 09/11/20 09/09/20 losartan 100 mg PO QAM 09/11/20 09/11/20 09/10/20 Active Medications Generic Name Dose Route Start Last Admin Trade Name Freq PRN Reason Stop Dose Admin Lactated Ringer's 1,000 mls @ 75 mls/hr 09/12/20 14:30 09/12/20 14:36 Lr IV 10/12/20 14:29 75 mls/hr .[id number] JET Administration Insulin Aspart 0 units 09/12/20 06:00 09/12/20 12:42 Insulin Aspart 100 Units/Ml 3 Ml Pen SC 10/11/20 20:59 1 units Q6 JET Administration Losartan Potassium 100 mg 09/12/20 09:00 09/12/20 08:07 Losartan Potassium 50 Mg Tab PO 10/12/20 08:59 100 mg QAM JET Administration Morphine Sulfate 2 mg 09/11/20 19:21 09/12/20 16:33 Morphine Sulfate 2 Mg/Ml Carp IV 09/25/20 19:20 2 mg Q6H PRN Administration Pain Simvastatin 20 mg 09/11/20 21:00 09/11/20 22:33 Simvastatin 20 Mg Tab PO 10/11/20 20:59 20 mg HS JET Administration Past Medical History Medical History (Updated 09/12/20 @ 11:25 by Kadeem Perez MD) Bilateral leg edema Diabetes mellitus type II, uncontrolled Exposure to COVID-19 virus Hx of basal cell carcinoma Hx of diabetic retinopathy Hypercholesterolemia Hypertension Iliotibial band syndrome Left groin pain Past Surgical History Surgical History History of surgical removal of skin lesion from R arm Social History Smoking Status: Never smoker Hx Alcohol Use: Yes Alcohol type: wine alcohol intake frequency: holidays/special occasions only Hx Substance Use: No Physical Exam Vital Signs Last Vital Signs Temp 37.2 C 09/12/20 07:49 Pulse 88 09/12/20 07:49 Resp 16 09/12/20 07:49 BP 130/72 09/12/20 07:49 Pulse Ox 100 09/12/20 07:49 Testing Laboratory Results 09/12/20 07:54 09/12/20 07:54 PT 10.6 Seconds (9.0-12.0) 09/12/20 07:54 INR 1.0 (0.9-1.1) 09/12/20 07:54 APTT 26.6 Seconds (21.0-31.0) 09/11/20 17:37 Hemoglobin A1c 7.9 % (4.5-5.6) H 09/12/20 07:54 Urine Color Yellow 09/11/20 20:24 Urine Appearance Clear (Clear) 09/11/20 20:24 Urine pH 6.5 (4.5-7.5) 09/11/20 20:24 Ur Specific [place] 1.016 (1.000-1.030) 09/11/20 20:24 Urine Protein Negative (Negative) 09/11/20 20:24 Urine Glucose (UA) Trace (Negative) H 09/11/20 20:24 Urine Ketones Trace (Negative) H 09/11/20 20:24 Urine Nitrite Negative (Negative) 09/11/20 20:24 Ur Leukocyte Esterase 1+ (Negative) H 09/11/20 20:24 Urine WBC (Auto) 1-5 /hpf (0-5) 09/11/20 20:24 Urine RBC (Auto) 0-4 /hpf (0-4) 09/11/20 20:24 U Hyaline Cast (Auto) 1-5 /lpf (0-5) 09/11/20 20:24 U Epithel Cells (Auto) 10-20 /lpf (0-5) H 09/11/20 20:24 Urine Bacteria (Auto) Negative (Negative) 09/11/20 20:24 Blood Type B Positive 09/11/20 21:43 Antibody Screen NEGATIVE 09/11/20 21:43 09/12/20 09/12/20 12:29 05:52 POC Glucose 151 H 171 H covid POSITIVE 09/11/20 Electrocardiogram Date: 09/11/20 DICTATED BY: Bernardo Suarez MD Test Reason : Blood Pressure : / mmHG Vent. Rate : 102 BPM Atrial Rate : 102 BPM P-R Int : 180 ms QRS Dur : 068 ms QT Int : 344 ms P-R-T Axes : 059 -16 065 degrees QTc Int : 448 ms Sinus tachycardia with frequent Premature ventricular complexes Otherwise normal ECG When compared with ECG of 26-FEB-2015 06:30, Premature ventricular complexes are now Present Confirmed by Bernardo Suarez ([id number]) on 09/12/2020 6:32:23 AM Chest X-Ray Date: 09/11/20 XR chest 1V portable CLINICAL HISTORY: weakness COMPARISON STUDY: 02/24/2015 FINDINGS: The heart is borderline enlarged. There is mild prominence elevation of interstitium suggesting mild pulmonary vascular congestion. There is no lobar consolidation. There are no significant pleural effusions.[ IMPRESSION: 1. Mild elevation of the interstitium, likely secondary to mild pulmonary vascular congestion. No evidence of lobar consolidation
[2020-09-12] MEDS: LACTATED RINGER'S 1,000 ML IV SCH (14:36)
--- NOTE | 2020-09-12 16:09 | History & Physical Bridge Note ---
Date of Service September 12, 2020 History & Physical Bridge Note I have examined the patient, reviewed the History & Physical and in the interval since the performance of the History & Physical I have noted the following changes of clinical significance: no changes noted. I will be doing the procedure today. All risks and benefits discussed. Informed consent obtained
[2020-09-12] MEDS ORDERED: BUPIVACAINE/EPINEPHRINE 0.5% MPF 1:200,000 30 ML VIAL ONE (16:49)
[2020-09-12] MEDS ORDERED: BUPIVACAINE 0.5 % 5 MG/1 ML PF 10ML VIAL ONE (16:59)
[2020-09-12] MEDS ORDERED: PROPOFOL IV EMULSION 10 MG/ML 20 ML VIAL IV ONE (17:03)
[2020-09-12] MEDS ORDERED: fentaNYL citrate 100 MCG/2 ML VIAL ONE (17:04)
[2020-09-12] MEDS ORDERED: MIDAZOLAM HCL 1 MG/ML 2ML VIAL ONE (17:04)
[2020-09-12] MEDS ORDERED: ONDANSETRON INJ 2 MG/ML 2 ML VIAL ONE (17:08)
[2020-09-12] MEDS ORDERED: LIDOCAINE 2% 2 ML VIAL/AMP(20MG/ML) INFIL ONE (17:08)
[2020-09-12] MEDS ORDERED: ceFAZolin 1000MG 1,000 MG/7.5 ML SYR IV ONE (18:21)
[2020-09-12] MEDS ORDERED: NALOXONE HCL 0.4 MG/1 ML VIAL/CARP IV PRN (20:43)
--- NOTE | 2020-09-12 20:45 | Operative Report ---
Post Operative Report Pre & Post Diagnosis Operation Date: 09/12/20 11:50 Pre-Op Diagnosis: Left DISPLACED femoral Neck Fracture Post-Op Diagnosis: Left displaced femoral Neck Fracture I identified the patient and participated in the time-out.: Yes Procedure Operation Date: 09/12/20 11:50 Actual Procedures p Left Hip Hemiarthroplasty-- Cemented (Left) - Shamar Keller MD Surgeon Shamar Keller MD Instructor Creeler CLIFTON Hahn Estimated Blood Loss 150 Findings Consistent with Post-Op Diagnosis Fluids 700 cc Specimens Left femoral head sent for pathology Complications none Disposition Accompanied Patient To Recovery: No Disposition: Surgical ICU (Recovered in OR due to COVID Status) Indications Patient is 80-year-old female who was sustained a mechanical fall. She was brought to emergency room x-rays were revealed a displaced femoral neck fracture. She was made by the medicine service, medically optimized, and indicated for surgical treatment. Description of Procedure Operative implants consist of: 1. Fidelina size 12 LD fracture fracture stem. 2. +3.5/20 mm metal articular ball. 3. 44 mm bipolar shell and liner. 4. 11 mm distal centralizer 5. Small cement restrictor The patient was taken to the operating, identified, placed on the operating table supine position protectors were properly padded. IV antibiotics tried by anesthesia team. A spinal anesthetic was employed by anesthesia team. The patient was then placed in the right lateral decubitus position and axillary roll was placed. A Stulberg hip positioner was used for positioning. Left hip and leg were then scrubbed with Hibiclens, prepped with ChloraPrep and draped in usual sterile fashion. A posterior lateral approach to the left hip was then performed to a curvilinear incision centered over the greater trochanter. Sharp dissection was carried through subcutaneous tissue down the level of the IT band gluteal fascia the IT band gluteal fascia incised longitudinally in line with skin incision. The piriformis and external rotators were tagged and taken off the posterior aspect hip joint capsule. Great care was taken throughout the procedure protect the sciatic nerve at all times. Posterior capsulotomy was then performed leaving a flap for later repair. Hip was internally rotated. Femoral neck osteotomy cut was made just at the base of the fracture which was about a centimeter above the lesser trochanter. Femoral head was removed. The acetabular was sized with size 44. Attention drawn back to the femur. The femur was entered with a cookie-cutter followed by canal finder and lateralizing reamer. Broached begin the size of 10 and progressing up to 12. Got good fit of 12. Then trialed the hip and the +3.5 articular ball recreated soft tissue tension appropriately and was fully stable. I elect to place these implants. All trial implants were removed. A cement restrictor was placed distally. A double batch [place] G cement was mixed and injected in the canal. The size 12 LD fracture fracture stem was then placed with a distal centralizer. It was held in place until the cement hardened. A +3.5/28 mm articular ball with a 44 bipolar shell and liner were placed. Hip was located and found to be stable. Attention drawn toward closing. The wound was irrigated cups ounce of pulsatile lavage solution. We did inject locally with 30 cc of half percent Marcaine with epinephrine. The posterior capsule was then repaired with #2 Tycron suture. The external rotators were repaired to the posterior aspect of the hip abductors with #2 Tycron suture. The IT band gluteal fascia then closed with #1 PDS suture running fashion for subcutaneous tissue then closed with 2 layers of the deep layer #1 Vicryl suture subcutaneous tissues with 2 Dexon suture in a buried interrupted fashion. Skin was closed skin bharath. Legs then cleaned and dried a sterile dressing composed Xeroform, 4 x 4's, ABD pad, foam tape was applied. The patient was then placed back on the transport cart in supine position. She was recovered in the OR due to her Covid status. Chaitanya Hahn, my physician professional nursing assistant, was present for the entire procedure. His assistance was essential and required for appropriate patient positioning, prepping and draping, surgical exposure, performing the technical details of the operation, placement the implants, closure of the wound, and placement of the sterile bandage. I attest to the content of the Intraoperative Record and any orders documented therein. Any exceptions are noted below.
--- NOTE | 2020-09-12 20:47 | XRay Report ---
XR hip LT min 2V HISTORY: 80 years-old Female Post-Operative implant position [total joint arthroplasty COMPARISON: Pelvis and hip radiographs 09/11/2020 TECHNIQUE: AP view of the pelvis with crosstable lateral view of the left hip FINDINGS: Ovoid calcification of the central pelvis redemonstrated. Arterial calcifications. Mild to moderate o steoarthritis of the right hip. Left hip total joint arthroplasty demonstrates satisfactory alignment . Lateral skin bharath with expected postoperative soft tissue swelling and deep tissue air. No acute fracture. IMPRESSION: Left hip total joint arthroplasty with expected postoperative changes. ACT 112: Negative or not required by law. The above report was generated using voice recognition software. It may contain grammatical, syntax o r spelling errors. Electronically signed by: Blaine Sherman M.D. 09/12/2020 8:46 PM
--- NOTE | 2020-09-12 21:43 | Anesthesiology Progress Note ---
Date of Service September 12, 2020 Anesthesia Post Procedure Vital Signs Vital Signs: Temp Pulse Pulse Pulse Resp BP BP 09/12/20 21:26 36.5 C 118 H 18 142/76 H 09/12/20 20:57 36.6 C 111 H 16 147/77 H 09/12/20 20:43 09/12/20 20:30 36.4 C L 108 H 16 133/76 09/12/20 20:20 36.2 C L 102 H 16 141/85 H 09/12/20 20:10 105 H 17 136/82 09/12/20 20:00 97 H 12 127/79 09/12/20 19:50 104 H 15 140/69 09/12/20 19:40 111 H 14 140/55 L 09/12/20 19:34 36.7 C 108 H 16 115/53 L 09/12/20 07:49 37.2 C 88 16 130/72 09/12/20 05:55 37.3 C 107 H 20 149/81 H 09/11/20 23:45 37.1 C 93 H 18 152/76 H Pulse Ox Pulse Ox 09/12/20 21:26 98 09/12/20 20:57 100 09/12/20 20:43 97 09/12/20 20:30 93 09/12/20 20:20 100 09/12/20 20:10 100 09/12/20 20:00 98 09/12/20 19:50 96 09/12/20 19:40 100 09/12/20 19:34 100 09/12/20 07:49 100 09/12/20 05:55 98 09/11/20 23:45 99 Pain Intensity Left Hip: Pain Intensity: 10 Transfer of Care Handoff Completed per policy Notes Mental Status: alert / awake / arousable and participated in evaluation Nausea / Vomiting: adequately controlled Pain: adequately controlled Airway Patency, RR, SpO2: stable & adequate BP & HR: stable & adequate Hydration State: stable & adequate Neuraxial Anesthesia: was administered and sensory block is resolving Anesthetic Complications: no major complications apparent and Pt Satisfied with anesthetic care
[2020-09-12] MEDS: ASPIRIN 81 MG ECTAB PO SCH (23:01)
[2020-09-12] MEDS: SIMVASTATIN 20 MG TAB PO SCH (23:01)
--- NOTE | 2020-09-12 23:01 | Hospitalist Progress Note ---
Date of Service September 12, 2020 Assessment & Plan (1) Hip fracture: Transcervical fracture of left femur Admit to general medical bed Analgesia as needed for pain Consults orthopedics for further management, suspect patient will require operative repair Heparin 5000 subcu every 8h, hold prior to surgery Will have surgery later today. (2) Diabetes mellitus type II, uncontrolled: Hold Metformin and glipizide for now Sliding scale insulin with meals. Patient is not on any basal insulin Check hemoglobin A1c (3) Hypercholesterolemia: Patient is on simvastatin 20 mg at home, continue equivalent dosing here (4) Hypertension: Mildly elevated blood pressure 142/79, likely secondary to acute issues Continue medications as per outpatient, appears to be only on losartan 100 mg daily Admission and Anticipated Discharge Date Admission Date: September 11, 2020 Subjective Patient reports having pain in her affected leg Review of Systems Review of Systems: All systems reviewed & are unremarkable except as noted in HPI & below Physical Exam Physical Exam: Constitutional: + frail appearing and cooperative; no acute distress Neck: trachea midline, no thyromegaly Respiratory: normal respiratory effort Auscultation: lungs clear to auscultation bilaterally; no crackles, no rales, no rhonchi and no wheezes Cardiovascular: Rate/Rhythm: regular rate and regular rhythm Heart Sounds: normal S1, normal S2 and + murmur Gastrointestinal (Abdomen): Inspection/Auscultation: abdomen normal to inspection Percussion/Palpation: abdomen soft; abdomen nontender, no guarding, abdomen not rigid and no hepatosplenomegaly Musculoskeletal: Left leg shorter, externally rotated. Distal pulses intact Skin: no rashes, warm and dry Results & Data Results & Data ([facility]) Vital Signs (Past 12 Hours) Vital Signs Temp Pulse Pulse Pulse Resp BP Pulse Ox 09/12/20 22:30 37.2 C 118 H 20 158/90 H 99 09/12/20 21:26 36.5 C 118 H 18 142/76 H 98 09/12/20 20:57 36.6 C 111 H 16 147/77 H 100 09/12/20 20:43 09/12/20 20:30 36.4 C L 108 H 16 133/76 93 09/12/20 20:20 36.2 C L 102 H 16 141/85 H 100 09/12/20 20:10 105 H 17 136/82 100 09/12/20 20:00 97 H 12 127/79 98 09/12/20 19:50 104 H 15 140/69 96 09/12/20 19:40 111 H 14 140/55 L 100 09/12/20 19:34 36.7 C 108 H 16 115/53 L 100 Pulse Ox 09/12/20 22:30 09/12/20 21:26 09/12/20 20:57 09/12/20 20:43 97 09/12/20 20:30 09/12/20 20:20 09/12/20 20:10 09/12/20 20:00 09/12/20 19:50 09/12/20 19:40 09/12/20 19:34 PG Care Time/CCT Total # of Minutes Spent Total Time Spent with Patient: Total time spent is greater than 50% in coordination of care (as documented) at patient's floor/unit and/or counseling patient: Coding Level of Care Code 83387 Subseq Hosp Care Lvl 2 Diagnoses Hip fracture S72.009A Diabetes mellitus type II, uncontrolled E11.65 Hypercholesterolemia E78.00 Hypertension I10 Time Spent (min) 25
[2020-09-13] MEDS: LACTATED RINGER'S 1,000 ML IV SCH (02:16)
[2020-09-13] MEDS: MoRPHine SULFATE 2 MG/ML CARP IV PRN ×2 (02:26→08:43)
[2020-09-13 07:13] LABS: Basophils # (auto) 0.01 K/uL (0-0.2); Basophils % (auto) 0.1 %; Eosinophils # (auto) 0.04 K/uL (0-0.5); Eosinophils % (auto) 0.3 %; Hematocrit (blood only) 32.6 % (37-47); Hemoglobin 10.9 g/dL (12.0-16.0); Immature Granulocytes # (auto) 0.03 K/uL (0.00-0.02); Immature Granulocytes % (auto) 0.2 %; Lymphocytes # (auto) 1.02 K/uL (1.2-3.4); Lymphocytes % (auto) 7.3 %; Mean Corpuscular Hemoglobin 30.3 pg (25-34); Mean Corpuscular Hgb Conc 33.4 g/dL (32-36); Mean Corpuscular Volume 90.6 fL (80-100); Mean Platelet Volume 10.8 fL (7.4-10.4); Monocytes # (auto) 1.41 K/uL (0.11-0.59); Monocytes % (auto) 10.1 %; Neutrophils # (auto) 11.45 K/uL (1.4-6.5); Platelet Count 211 K/uL (130-400); RDW Coefficient of Variation 13.5 % (11.5-14.5); White Blood Count 13.96 K/uL (4.8-10.8)
[2020-09-13 07:44] LABS: BUN Creatinine Ratio 29.4 (10-20); Calcium 8.8 mg/dl (8.5-10.1); Creatinine Clr Calc Pharmacy 79.7 ml/min; Est GFR (African American) 110.4 ml/min; Est GFR (Non-African American) 95.3 ml/min; Potassium 3.7 mmol/L (3.5-5.1)
--- NOTE | 2020-09-13 07:55 | Progress Notes ---
DATE: 09/13/2020 SUBJECTIVE: A 80-year-old white female postop day 1 from a left cemented bipolar hip arthroplasty for fracture. She is doing okay. Having some pain, but clearly improved. No other complaints. No chest pain or shortness of breath. She is quite worried about her COVID positive status. OBJECTIVE: VITAL SIGNS: Temperature 37.4. Vital signs stable. GENERAL: Shows a frail elderly female. She is lying in bed, looks reasonably comfortable. EXTREMITIES: Examination of left hip and leg reveals the leg lengths to be equal. Dressing is clean, dry and intact. Thigh is soft and supple. She is neurologically intact. She can dorsiflex and plantarflex her foot appropriately. LABORATORY DATA: Hemoglobin 10.9. Hematocrit 32.6. Electrolytes are pending. ASSESSMENT: A 80-year-old white female postop day 1 from a left cemented bipolar hip arthroplasty for fracture. She is doing pretty well. She does seem to have a low pain tolerance. She is quite concerned about her COVID status. She has no symptoms. PLAN: 1. DVT prophylaxis including thigh-high TEDs, SCDs, and we would recommend a baby aspirin twice a day for 6 weeks. 2. PT/OT. She can weightbear as tolerated. She does need to obey hip precautions. 3. Pain control. I would limit pain meds. Will use Tylenol around the clock and limited tramadol. Avoid more potent narcotics if possible. 4. Medical management as per the medicine service. 5. Disposition: She is orthopedically okay for discharge any time medically ready, probably starting tomorrow.
[2020-09-13] MEDS: LOSARTAN POTASSIUM 50 MG TAB PO SCH (08:42)
[2020-09-13] MEDS: INSULIN ASPART 100 UNITS/ML 3 ML PEN SC SCH ×4 (08:42→20:37)
[2020-09-13] MEDS: ASPIRIN 81 MG ECTAB PO SCH ×2 (08:43→19:56)
[2020-09-13] MEDS ORDERED: METOPROLOL TARTRATE 25 MG TAB PO ONE (19:01)
[2020-09-13] MEDS: SIMVASTATIN 20 MG TAB PO SCH (19:56)
[2020-09-13] MEDS ORDERED: NITROGLYCERIN SL 0.4 MG/TAB TAB SL PRN (22:46)
[2020-09-13] MEDS ORDERED: MoRPHine SULFATE 2 MG/ML CARP IV PRN (22:46)
--- NOTE | 2020-09-13 22:53 | Hospitalist Progress Note ---
Date of Service September 13, 2020 Assessment & Plan (1) EKG abnormalities: ST changes in only one lead V3 with no reciprocal changes. Had discussion with [employer] compensation and benefits administrator Given how patient is asymptomatic. will keep in medical. placed on metoprolol to limit tachycardia. will check troponin (2) Hip fracture: S/P Left Hip Hemiarthroplasty-- Cemented (Left) DVT proph: ASA 81 MG BID (3) Diabetes mellitus type II, uncontrolled: Hold Metformin and glipizide for now Sliding scale insulin with meals. Patient is not on any basal insulin Check hemoglobin A1c: 7.9 (4) Hypercholesterolemia: Patient is on simvastatin 20 mg at home, continue equivalent dosing here (5) Hypertension: Mildly elevated blood pressure 142/79, likely secondary to acute issues Continue medications as per outpatient, appears to be only on losartan 100 mg daily Admission and Anticipated Discharge Date Admission Date: September 11, 2020 Subjective Patient reports no symptoms. Patient denies any chespt pain, nausea, vomiting, diaphoresis, cough. Review of Systems Review of Systems: All systems reviewed & are unremarkable except as noted in HPI & below Physical Exam Physical Exam: Constitutional: + frail appearing and cooperative; no acute distress Neck: trachea midline, no thyromegaly Respiratory: normal respiratory effort Auscultation: lungs clear to auscultation bilaterally; no crackles, no rales, no rhonchi and no wheezes Cardiovascular: Rate/Rhythm: tachycardic and regular rhythm Heart Sounds: normal S1, normal S2 and + murmur Gastrointestinal (Abdomen): Inspection/Auscultation: abdomen normal to inspection Percussion/Palpation: abdomen soft; abdomen nontender, no guarding, abdomen not rigid and no hepatosplenomegaly Skin: no rashes, warm and dry Results & Data Results & Data ([facility]) Vital Signs (Past 12 Hours) Vital Signs Temp Pulse Resp BP Pulse Ox Pulse Ox 09/13/20 21:35 86 09/13/20 20:30 98 H 09/13/20 20:25 106 H 93 09/13/20 19:39 37.6 C H 120 H 20 151/82 H 95 09/13/20 14:36 36.8 C 121 H 20 172/84 H 99 09/13/20 13:34 99 PG Care Time/CCT Total # of Minutes Spent Total Time Spent with Patient: Total time spent is greater than 50% in coordination of care (as documented) at patient's floor/unit and/or counseling patient: Coding Level of Care Code 06589 Subseq Hosp Care Lvl 3 Diagnoses EKG abnormalities R94.31 Hip fracture S72.009A Diabetes mellitus type II, uncontrolled E11.65 Hypercholesterolemia E78.00 Hypertension I10 Time Spent (min) 35
[2020-09-14] MEDS ORDERED: METOPROLOL TARTRATE 1 MG/ML VIAL IV PRN (01:54)
[2020-09-14] MEDS ORDERED: METOPROLOL TARTRATE 1 MG/ML VIAL IV ONE (01:57)
[2020-09-14] MEDS: METOPROLOL SUCC 25MG EXT REL TAB PO SCH (08:21)
[2020-09-14] MEDS: LOSARTAN POTASSIUM 50 MG TAB PO SCH (08:22)
[2020-09-14] MEDS: ASPIRIN 81 MG ECTAB PO SCH ×2 (08:22→20:53)
[2020-09-14] MEDS: INSULIN ASPART 100 UNITS/ML 3 ML PEN SC SCH ×4 (08:47→20:53)
--- NOTE | 2020-09-14 17:49 | Hospitalist Progress Note ---
Date of Service September 14, 2020 Assessment & Plan (1) Hip fracture: S/P Left Hip Hemiarthroplasty-- Cemented (Left) on 09/[address] Keller. - DVT proph: ASA 81 MG BID - Post-op care per surgical team (2) EKG abnormalities: EKG on 09/[address] elevation in only one lead V3 with no reciprocal changes. No symptoms at that time or prior or since. - EKG returned to normal on 09/14. - Troponins checked and have gradually elevated to 0.8. Likely mild demand ischemia from the surgery. - Would normally order an echo, but cannot do so given recent Covid-positive testing. - Will defer to outpatient cardiology follow-up. (3) Hypertension: BP was 125/70 today. - Continue home losartan 100 mg daily (4) Diabetes mellitus type II, uncontrolled: A1c was 7.9% this admission. - Hold Metformin and glipizide for now - Sliding scale insulin with meals. -> Running high with most blood sugars > 200. (5) Hypercholesterolemia: - Continue statin Admission and Anticipated Discharge Date Admission Date: September 11, 2020 Subjective Doing well today. No major pain. Reports no fevers/chills, chest pain, shortness of breath, abdominal pain, nausea, or vomiting. Physical Exam Constitutional: WD/WN, vitals as above Eyes: EOM intact bilaterally; no conjunctival abnormality ENMT: external ear and nose normal, oropharynx normal Neck: trachea midline, no thyromegaly normal visual inspection Respiratory: normal respiratory effort, lungs clear to auscultation no respiratory distress Cardiovascular: RRR, no murmur, no edema Gastrointestinal (Abdomen): Inspection/Auscultation: abdomen normal to inspection; abdomen not distended Musculoskeletal: no cyanosis or clubbing, extremities motor strength 5/5 Extremities: + extremities abnormal to inspection (Left leg in bandaging) Skin: no rashes, warm and dry Neurologic: moves all extremities and awake Psychiatric: Orientation: alert, oriented to person and cooperative Results & Data Results & Data ([facility]) Vital Signs (Past 12 Hours) Vital Signs Temp Pulse Pulse Resp BP BP Pulse Ox 09/14/20 15:54 37.0 C 77 18 124/71 99 09/14/20 15:05 87 09/14/20 07:36 37.2 C 90 18 128/72 94 09/14/20 07:20 92 H PG Care Time/CCT Total # of Minutes Spent Total Time Spent with Patient: Total time spent is greater than 50% in coordination of care (as documented) at patient's floor/unit and/or counseling patient: Coding Level of Care Code 53544 Subseq Hosp Care Lvl 2 Diagnoses Hip fracture S72.009A EKG abnormalities R94.31 Hypertension I10 Diabetes mellitus type II, uncontrolled E11.65 Hypercholesterolemia E78.00
[2020-09-14] MEDS: SIMVASTATIN 20 MG TAB PO SCH (20:57)
[2020-09-15] MEDS: MoRPHine SULFATE 2 MG/ML CARP IV PRN ×3 (03:27→18:04)
[2020-09-15 07:13] LABS: Hematocrit (blood only) 28.8 % (37-47); Mean Corpuscular Hemoglobin 30.6 pg (25-34); Mean Corpuscular Hgb Conc 34.7 g/dL (32-36); Mean Corpuscular Volume 88.1 fL (80-100); Platelet Count 231 K/uL (130-400); RDW Coefficient of Variation 13.4 % (11.5-14.5); RDW Standard Deviation 43.4 fL (36.4-46.3); Red Blood Count 3.27 M/uL (4.2-5.4); White Blood Count 10.31 K/uL (4.8-10.8)
[2020-09-15 07:34] LABS: BUN Creatinine Ratio 30.4 (10-20); Calcium 8.7 mg/dl (8.5-10.1); Creatinine Clr Calc Pharmacy 55.6 ml/min; Est GFR (African American) 98.1 ml/min; Est GFR (Non-African American) 84.6 ml/min; Potassium 3.9 mmol/L (3.5-5.1)
[2020-09-15 07:40] LABS: Troponin I 0.312 ng/ml (0-0.045)
--- NOTE | 2020-09-15 07:41 | Electrocardiogram Report ---
Test Reason : Blood Pressure : / mmHG Vent. Rate : 112 BPM Atrial Rate : 112 BPM P-R Int : 154 ms QRS Dur : 072 ms QT Int : 314 ms P-R-T Axes : 060 -24 064 degrees QTc Int : 428 ms Sinus tachycardia Possible Anterior infarct , age undetermined Abnormal ECG When compared with ECG of 11-SEP-2020 14:13, Premature ventricular complexes are no longer Present Anterior infarct is now Present Non-specific change in ST segment in Anterior leads Confirmed by Bernardo Suarez ([id number]) on 09/15/2020 7:41:03 AM Referred By: REFERRED SELF Confirmed By:Bernardo Suarez
[2020-09-15] MEDS: METOPROLOL SUCC 25MG EXT REL TAB PO SCH (07:53)
[2020-09-15] MEDS: ASPIRIN 81 MG ECTAB PO SCH ×2 (07:53→20:03)
[2020-09-15] MEDS: LOSARTAN POTASSIUM 50 MG TAB PO SCH (07:53)
--- NOTE | 2020-09-15 07:57 | Electrocardiogram Report ---
Test Reason : Blood Pressure : / mmHG Vent. Rate : 093 BPM Atrial Rate : 093 BPM P-R Int : 160 ms QRS Dur : 070 ms QT Int : 352 ms P-R-T Axes : 070 -15 062 degrees QTc Int : 437 ms Normal sinus rhythm Normal ECG When compared with ECG of 13-SEP-2020 18:09, Criteria for Anterior infarct are no longer Present Confirmed by Bernardo Suarez ([id number]) on 09/15/2020 7:57:21 AM Referred By: REFERRED SELF Confirmed By:Bernardo Suarez
[2020-09-15] MEDS: INSULIN ASPART 100 UNITS/ML 3 ML PEN SC SCH ×4 (07:59→20:04)
--- NOTE | 2020-09-15 14:49 | Progress Notes ---
DATE: 09/14/2020 SUBJECTIVE: A 80-year-old white female now postop day 2 from a left cemented bipolar hip arthroplasty for fracture. She was transferred to the PCU last evening due to some EKG changes. The patient denies any significant chest pain. She is lying in bed. Denies any hip pain currently. No new complaints. OBJECTIVE: VITAL SIGNS: Temperature 37.2. Vital signs stable. GENERAL: Shows a pleasant elderly female. She looks pretty frail. She is lying in bed and looks reasonably comfortable. EXTREMITIES: Examination of the left hip and leg reveals the dressing to be clean, dry and intact. Thigh is soft and supple. She can dorsiflex and plantarflex her foot appropriately. She is neurologically intact. LABORATORY DATA: Hemoglobin 10.9. Hematocrit 32.6. ASSESSMENT: A 80-year-old white female postoperative day 2 from a left cemented bipolar hip arthroplasty for fracture. Orthopedically, she seems to be doing okay. She had these EKG changes without really much in the way of symptoms. She was tachycardic but her heart rate is under better control now. She appears relatively clinically stable. PLAN: 1. DVT prophylaxis including thigh-high TEDs, SCDs, and we would recommend an aspirin twice a day. If she needs more aggressive anticoagulation for her heart, that is certainly acceptable. 2. PT/OT. She can weightbear as tolerated. Needs to obey hip precautions. Resume therapy once medically able. 3. Medical management as per the medicine service. 4. Disposition: She is orthopedically stable and okay for discharge any time medically stable. I need to see her back in 2-3 weeks out from the surgery date. Any orthopedic questions can be directed to me at [phone]. She can be fully weightbearing as tolerated on the left lower extremity obeying hip precautions.
--- NOTE | 2020-09-15 14:50 | Progress Notes ---
DATE: 09/15/2020 SUBJECTIVE: A 80-year-old white female postop day 3 from a left cemented bipolar hip arthroplasty for fracture. She seems to be doing quite a bit better this morning. She says her pain is improving. It sounds pretty manageable. No new complaints. No chest pain or shortness of breath. Not feeling dizzy or lightheaded. OBJECTIVE: VITAL SIGNS: Temperature 36.9. Vital signs stable. GENERAL: Shows a pleasant and elderly frail female. She is lying in bed, looks pretty comfortable. She is awake, alert and oriented. EXTREMITIES: Examination of left hip reveals the dressing to be clean, dry and intact. Leg is well aligned. Thigh is soft and supple. She is neurologically intact. LABORATORY DATA: Hemoglobin 10.8. Hematocrit 28.8. Electrolytes are stable. ASSESSMENT: A 80-year-old white female postop day 3 from a left cemented bipolar hip arthroplasty, doing well orthopedically. She had some EKG changes and a slight bump in her troponin. She looks pretty good this morning and seems to be significantly improved. Pain is under control. Hip is located. She is neurologically intact. PLAN: 1. DVT prophylaxis including thigh-high TEDs, SCDs, and we would recommend a baby aspirin twice a day for the next 6 weeks. 2. PT/OT. She can weightbear as tolerated. She needs to obey hip precautions. 3. Pain control. We will try and limit narcotics. Use Tylenol around the clock and to limit amount of tramadol. 4. Medical management as per the medicine service. 5. Disposition: She is orthopedically stable for discharge any time medically stable. I need to see her back in 2-3 weeks out from her surgery date. Any orthopedic questions can be directed to me at [phone].
--- NOTE | 2020-09-15 16:20 | Hospitalist Progress Note ---
Date of Service September 15, 2020 Assessment & Plan (1) Hip fracture: S/P Left Hip Hemiarthroplasty-- Cemented (Left) on 09/[address] Keller. - DVT proph: ASA 81 MG BID - Post-op care per surgical team (2) EKG abnormalities: EKG on 09/[address] elevation in only one lead V3 with no reciprocal changes. No symptoms at that time or prior or since. - EKG returned to normal on 09/14. - Troponins checked and have gradually elevated to 0.8. Likely mild demand ischemia from the surgery. Down to 0.3 by discharge. - Would normally order an echo, but cannot do so given recent Covid-positive testing. - Will defer to outpatient cardiology follow-up. (3) COVID-19: Incidentally found on PCR on admission. No symptoms. Previously vaccinated. - No acute needs (4) Hypertension: BP was 125/70 today. - Continue home losartan 100 mg daily (5) Diabetes mellitus type II, uncontrolled: A1c was 7.9% this admission. - Hold Metformin and glipizide for now - Sliding scale insulin with meals. -> Running high with most blood sugars > 200. (6) Hypercholesterolemia: - Continue statin Admission and Anticipated Discharge Date Admission Date: September 11, 2020 Subjective Doing well today. No major pain. No real Covid symptoms. Reports no fevers/chills, chest pain, shortness of breath, abdominal pain, nausea, or vomiting. Physical Exam Constitutional: WD/WN, vitals as above Eyes: EOM intact bilaterally; no conjunctival abnormality ENMT: external ear and nose normal, oropharynx normal Neck: trachea midline, no thyromegaly normal visual inspection Respiratory: normal respiratory effort, lungs clear to auscultation no respiratory distress Cardiovascular: RRR, no murmur, no edema Gastrointestinal (Abdomen): Inspection/Auscultation: abdomen normal to inspection; abdomen not distended Musculoskeletal: no cyanosis or clubbing, extremities motor strength 5/5 Extremities: + extremities abnormal to inspection (Left leg in bandaging) Skin: no rashes, warm and dry Neurologic: moves all extremities and awake Psychiatric: Orientation: alert, oriented to person and cooperative Results & Data Results & Data ([facility]) Vital Signs (Past 12 Hours) Vital Signs Temp Pulse Pulse Resp BP BP Pulse Ox 06/12/21 15:45 36.6 C 92 H 20 96/59 L 92 09/15/20 15:32 105 H 09/15/20 11:27 36.3 C L 89 20 130/62 94 09/15/20 07:48 36.9 C 92 H 20 125/67 95 09/15/20 07:37 95 H PG Care Time/CCT Total # of Minutes Spent Total Time Spent with Patient: Total time spent is greater than 50% in coordination of care (as documented) at patient's floor/unit and/or counseling patient: Coding Level of Care Code 60459 Subseq Hosp Care Lvl 2 Diagnoses Hip fracture S72.009A EKG abnormalities R94.31 COVID-19 U07.1 Hypertension I10 Diabetes mellitus type II, uncontrolled E11.65 Hypercholesterolemia E78.00
[2020-09-15] MEDS: SIMVASTATIN 20 MG TAB PO SCH (20:03)
[2020-09-16 06:19] LABS: Hematocrit (blood only) 27.5 % (37-47); Hemoglobin 9.4 g/dL (12.0-16.0); Mean Corpuscular Hemoglobin 30.1 pg (25-34); Mean Corpuscular Hgb Conc 34.2 g/dL (32-36); Mean Corpuscular Volume 88.1 fL (80-100); Mean Platelet Volume 10.6 fL (7.4-10.4); Platelet Count 255 K/uL (130-400); RDW Coefficient of Variation 13.4 % (11.5-14.5); RDW Standard Deviation 43.3 fL (36.4-46.3); Red Blood Count 3.12 M/uL (4.2-5.4); White Blood Count 9.09 K/uL (4.8-10.8)
[2020-09-16 06:46] LABS: BUN Creatinine Ratio 38.3 (10-20); Calcium 8.8 mg/dl (8.5-10.1); Creatinine Clr Calc Pharmacy 54.7 ml/min; Est GFR (African American) 97.6 ml/min; Est GFR (Non-African American) 84.2 ml/min; Potassium 3.8 mmol/L (3.5-5.1)
[2020-09-16] MEDS: LOSARTAN POTASSIUM 50 MG TAB PO SCH (07:57)
[2020-09-16] MEDS: METOPROLOL SUCC 25MG EXT REL TAB PO SCH (07:58)
[2020-09-16] MEDS: ASPIRIN 81 MG ECTAB PO SCH (07:58)
[2020-09-16] MEDS: INSULIN ASPART 100 UNITS/ML 3 ML PEN SC SCH ×2 (08:59→12:42)
--- NOTE | 2020-09-16 21:05 | Discharge Summary ---
Date of Service September 16, 2020 Admission HPI Per Admitting Provider This is a 80-year-old female past history hyperlipidemia, type 2 diabetes mellitus, and hypertension who presents today status post fall. Patient is accompanied by her daughter, both are good historians. Patient tells me that yesterday evening she was ambulating down her walkway. This is gravel and has a steep grade to it. She tripped and fell, landing on her left side. She had significant pain as soon as she landed. She was not able to get up on her own power and her son had to help her up. She cannot bear any weight on the left leg. Patient spent the night dealing with the pain, however when she woke in the morning the pain was much worse she was brought to the emergency room by her family. Work-up revealed a left transcervical fracture of the femur. Patient is now being mated for further treatment. At the time my evaluation, patient tells me she has minimal pain in the left lateral hip, with some radiations into the groin if she moves. She is otherwise comfortable denies any other issues such as chest pain, shortness of breath, abdominal pain, palpitations, or other issues. Principal Diagnosis Hip Fracture Discharge Exam Constitutional WD/WN, vitals as above Eyes EOM intact bilaterally; no conjunctival abnormality ENMT external ear and nose normal, oropharynx normal Neck trachea midline, no thyromegaly normal visual inspection Respiratory normal respiratory effort, lungs clear to auscultation no respiratory distress Cardiovascular RRR, no murmur, no edema Gastrointestinal (Abdomen) Inspection/Auscultation: abdomen normal to inspection; abdomen not distended Musculoskeletal no cyanosis or clubbing, extremities motor strength 5/5 Extremities: + extremities abnormal to inspection (Left leg in bandaging) Skin no rashes, warm and dry Neurologic moves all extremities and awake Psychiatric Orientation: alert, oriented to person and cooperative Discharge Data Allergies Allergy/AdvReac Type Severity Reaction Status Date / Time No Known Drug Allergies Allergy Unknown . Verified 09/11/20 15:43 METAL Allergy Unknown RASH Uncoded 09/11/20 15:43 Consultations 09/11/20 15:26 ED Decision to Admit Stat 09/11/20 19:21 Consult Orthopedic Surgery Routine Procedures Performed Operation Date: 09/12/20 11:50 Actual Procedures p Left Hip Hemiarthroplasty-- Cemented (Left) - Shamar Keller MD Ordered Studies 09/11/20 13:51 CT cervical spine wo con Stat CT head/brain wo con Stat Hospital Course (1) Hip fracture: S/P Left Hip Hemiarthroplasty-- Cemented (Left) on 09/[address] Keller. - DVT proph: ASA 81 MG BID - Post-op care per surgical team (2) EKG abnormalities: EKG on 09/[address] elevation in only one lead V3 with no reciprocal changes. No symptoms at that time or prior or since. - EKG returned to normal on 09/14. - Troponins checked and have gradually elevated to 0.8. Likely mild demand ischemia from the surgery. Down to 0.3 by discharge. - Would normally order an echo, but cannot do so given recent Covid-positive testing. - Will defer to outpatient cardiology follow-up. (3) COVID-19: Incidentally found on PCR on admission. No symptoms. Previously vaccinated. - No acute needs (4) Hypertension: BP was 125/70 today. - Continue home losartan 100 mg daily (5) Diabetes mellitus type II, uncontrolled: A1c was 7.9% this admission. - Resume Metformin and glipizide on discharge (6) Hypercholesterolemia: - Continue statin Total Time Total Time Spent Total Time Spent (In Minutes): 35 Discharge Plan Discharge Items Patient Disposition: Transfer [facility] Reason For Visit: HIP FX Discharge Diagnosis: Left Hip Replacement for Fracture Condition on Discharge: Good Activity: Per Instructions section Activity Comment: Follow/Obey hip precautions at all times. Weightbearing: Full weightbearing Weightbearing Comment: Weightbear as tolerated obeying hip precautions Non-emergency contact: Primary Care Provider and Surgeon Call non-emergency contact if: your symptoms worsen and your temperature is above 101 Follow-up/Referrals: Noam Sim MD [Primary Care Provider] - Shamar Keller MD [Physician] - (Orthopedic follow-up 2-3 weeks from surgery date.) Diet: Carb Consistent or DM2 and Heart Healthy Addtl Attending Provider Instructions: ACTIVITY RECOMMENDATIONS: Physical Therapy: * Aggressive physical therapy is not usually needed. You will learn to take care of yourself safely and walk. * Follow the "Hip Precautions Instructions." * In some cases, the social sciences department chair at the hospital will arrange to have a therapist come to your house for the first couple of weeks to help you learn these skills. * You need to practice on your own or with the help of a family member as needed. * When you learn these skills, most of the therapy can be done on your own. Home Exercise: * You were shown a series of exercises in the hospital. Do these exercises three to four times each day including the exercises you were shown in physical therapy. Walking: * Get up and walk several times each day. For the first four weeks, try not to stand or walk for more than one hour at a time. If you do stand or walk for more than one hour, you will not hurt anything, but your leg will likely swell. * As you feel comfortable, you may change from the walker or crutches to a cane and then to independent walking. MEDICATIONS: New Medicine: * You will likely be taking one or more of these medicines: 1. Tramadol - Take, as directed, when you need it, every six hours to control your pain. 2. Aspirin - Thins your blood to lessen the chance of forming a blood clot. * The most common side effects of pain medicine and iron are nausea and constipation. If nausea or constipation is too much of a problem or if you have any questions about your new medicines or doses, call [facility] at . We will try to help you manage these issues. "VERY IMPORTANT TO READ AND REVIEW" Pain: * The immediate post-operative period after hip replacement surgery is often quite painful. * You are given a prescription for pain medicine. You should take it, as directed, when you need it, especially before physical therapy and before going to bed. Pain that interferes with sleep is very common and can last several months. * You will likely need pain medicine for the first two to four weeks. It will not stop all of the pain. The pain will lessen and as you feel better, you may change to milder pain medicine such as Tylenol. * The most common side effects of pain medicine are nausea and constipation, so don't take more than you need. SPECIAL CARE INSTRUCTIONS: TEDs/Elastic Stockings: * The white elastic stockings help limit swelling and prevent blood clots from forming in your legs. The more you wear them, the more they work. * Wear them for six weeks. Prevention of Infection: * Take antibiotics one hour before any dental cleaning, dental work, urological procedure, gastrointestinal procedure or any invasive surgery in order to prevent your new joint from getting infected. * You may get the antibiotics from the doctor performing the procedure or you may call our office at before and we will call in a prescription to the pharmacy of your choice. Things to Watch For: * Drainage from the incision site that occurs more than one week after your surgery. * Severely increased leg pain or swelling. * Increased redness at the incision site. * Fever above 102 degrees Fahrenheit. * Unusual chest pain or shortness of breath. * Unusual pain or burning with urination. Call [facility] at with any of the above problems or if you have any questions about your medicines or recovery. FOLLOW UP VISIT: Make an appointment to see your doctor for approximately two weeks after surgery for a progress check and staple removal by calling the office at . Addtl Lap Machine Tender Provider Instructions: Had EKG changes on routine pre-operative EKG. No major troponin elevation. Will need to follow up with cardiology in 2 weeks after Covid-precautions done. Can do an echocardiogram at that time to ensure no cardiac issues. Pending Studies at Discharge: No Stand-Alone Forms: My [facility] Skilled Items Patient informed of condition?: Yes DNR: No Discharge Level of Care: Skilled Communicable Disease: Yes Discharge Prognosis: Stable Lines: None Urinary Catheter: No Medications and DC Order Prescriptions: New aspirin 81 mg Tablet,Delayed Release (Dr/Ec) 81 mg PO BID Qty: 0 RF: 0 Continued diclofenac sodium 1 % gel 4 g topical QID Qty: 100 RF: 0 metformin 1,000 mg tablet 1,000 mg PO BID Qty: 180 RF: 0 simvastatin 20 mg tablet 20 mg PO HS Qty: 90 RF: 3 glipizide 10 mg tablet extended release 24hr 10 mg PO QAM RF: 0 losartan 100 mg tablet 100 mg PO QAM RF: 0 Discharge Orders: Discharge Order (Routine); Ordered 09/16/20 Ordered By: James Monroy/Other Patient Handouts: High Blood Sugar (Hyperglycemia), Hypoglycemia (Low Blood Sugar), Managing Type 2 Diabetes Admission Data Admit Date/Time: 09/11/20 17:06 Attending Provider: James Nguyễn Admit Provider: Eulalio Sandoval Primary Care Provider: Noam Sim Other Providers: Mike Ramirez at [place] ; Joryjoanna, ; Maximino Jefferson ; James Nguyễn Other Interventions: Discharge Summary Assessment (RN) Last Done: 09/16/20 12:00 Coding Level of Care Code D/C Day Management >30 mins Diagnoses Hip fracture S72.009A EKG abnormalities R94.31 COVID-19 U07.1 Hypertension I10 Diabetes mellitus type II, uncontrolled E11.65 Hypercholesterolemia E78.00
== END 2020-09-16 14:00 | DRG 521 ==
LOC: ED 13:15 → 3E 17:06 → SUATTDRO 17:06 → 3E 20:48 → 2S 09-13 22:22

== ENCOUNTER 2021-04-13 13:38 | Observation (INO) ==
--- NOTE | 2021-04-13 14:12 | Emergency Department Note ---
Impression & Plan TIA (transient ischemic attack), Anemia ED Provider Note NAME: EZ COBB AGE: 80 SEX: F : 1940 ARRIVES VIA: Walk-In INFORMANT: Patient ED PROVIDER(S): Jose Montaño DO CHIEF COMPLAINT: Word finding HPI: Patient is a 80-year-old female with past medical history of Covid, fall, diabetes and hypertension as well as hyperlipidemia that presents the ER for trouble getting her words out. This lasted for an hour. Occurred between 11 AM and 12 PM. Patient denies any headache or change in vision. No chest pain or shortness of breath. No nausea, vomiting, or diarrhea. No dysuria, urgency, or frequency. She does have dementia which the son has noted over the past 6 months and she does not remember this event. ROS: See above HPI for pertinent positives & negatives. A total of 10 systems reviewed and were otherwise negative. PAST MEDICAL HISTORY:See Below PAST SURGICAL HISTORY:See Below FAMILY HISTORY:See Below SOCIAL HISTORY:See Below HOME MEDICATIONS:See Below ALLERGIES:See Below VITALS:See Below PHYSICAL EXAMINATION: GENERAL: Sitting up in bed, alert, well appearing, well nourished, no distress, non-toxic EYE EXAM: normal conjunctiva. PERRL and EOM's intact. OROPHARYNX: no exudate, no erythema, lips, buccal mucosa, and tongue normal and mucous membranes are moist NECK: supple, no nuchal rigidity, no adenopathy, non-tender LUNGS: Clear to auscultation. Normal chest wall mechanics HEART: no murmurs, S1 normal and S2 normal ABDOMEN: abdomen soft, non-tender, normo-active bowel sounds, no masses, no rebound or guarding. BACK: Back is symmetrical on inspection and there is no deformity, no midline tenderness, no CVA tenderness. SKIN: no rashes and no bruising UPPER EXTREMITIES: upper extremities are grossly normal. LOWER EXTREMITIES: No pitting edema. NEURO EXAM: Normal sensorium, cranial nerves II-XII intact, normal speech, no weakness of arms, left leg slightly weaker than right but this is old per son secondary to hip fracture. No drift. Finger to nose intact. Gross sensation intact. MEDICAL DECISION MAKING: Patient is a 80-year-old female who presents ER for expressive aphasia that la sted for about an hour. Has completely resolved. She is at baseline. Does have a history of dementia. IV was established blood was obtained. Labs show no significant leukocytosis. Mild anemia 9.7. INR unremarkable. BMP with slightly elevated glucose of 230. LFTs bilirubin and troponin were negative. Covid was negative. CT angios of the head and neck were negative. Chest x-ray unremarkable. UA was ordered but not obtained. She was updated bedside. Discussed with the son who was was present. Patient does not remember this episode and I do favor this likely secondary to dementia. She was discussed with hospitalist for further evaluation for possible TIA. Triage Nursing notes reviewed. Limited review of prior medical records performed Vital Signs: reviewed and remarkable for HTN Differential diagnosis: Differential Diagnosis includes but is not limited to ischemic Stroke, hemorrhagic stroke, bells palsy, mass, neoplasm, migraine headache, seizure, subarachnoid hemorrhage, TIA, and transient global amnesia. ER treatment provided: See below Diagnostics interpreted by me: ECG: Sinus rhythm rate 78 Left axis No PVCs QTC 442 Cardiac Monitoring: An order was placed for continuous cardiac monitoring. The monitor shows a rate of 80 with sinus rhythm. Laboratory studies: As stated above and show below. Imaging studies: CT angios of the head and neck showed no acute pathology Consultation(s): Discussed with the hospitalist further evaluation Procedures: none Critical Care: None Past Med/Surg History Medical History (Updated 04/13/21 @ 20:17 by Jose Montaño DO) Bilateral leg edema Diabetes mellitus type II, uncontrolled Exposure to COVID-19 virus Hx of basal cell carcinoma Hx of diabetic retinopathy Hypercholesterolemia Hypertension Iliotibial band syndrome Left groin pain Proteinuria Surgical History History of surgical removal of skin lesion Family History Mother Colorectal cancer Diabetes Grandfather (Paternal) Diabetes Grandfather (Paternal) No problems noted. Grandmother (Maternal) Diabetes Denies family history of Ovarian cancer Prostate cancer Myocardial infarction Breast cancer Social History Smoking Status: Never smoker Hx Alcohol Use: Yes Alcohol type: wine Hx Substance Use: No Preferred Language: Bulgarian Communication Ability: Effective Knuckler Required: No Beliefs That Will Affect Care: None marital status: / Current Living Situation: Alone Feels Safe at Home: Yes Assistive Devices: Walker Allergies Allergies Allergy/AdvReac Type Severity Reaction Status Date / Time No Known Drug Allergies Allergy Unknown . Verified 04/13/21 13:53 METAL Allergy Unknown RASH Uncoded 04/13/21 13:53 Home Meds Home Medications Medication Instructions Recorded Confirmed metformin 1,000 mg tablet 500 mg PO DAILY tab 03/25/21 04/13/21 hydroxyzine HCl 10 mg tablet 5 - 10 mg PO HS PRN 04/13/21 04/13/21 Previous Rx's Medication Instructions Recorded aspirin 81 mg tablet,delayed 81 mg PO BID #0 tab 09/16/20 release losartan 50 mg tablet 50 mg PO DAILY #30 tab 10/11/20 simvastatin 20 mg tablet 20 mg PO HS #90 tab 10/24/20 ferrous sulfate 325 mg (65 mg 325 mg PO DAILY #30 tab 11/27/20 iron) tablet tramadol 50 mg tablet 50 mg PO BID PRN #60 tab 03/26/21 Results & Data (ED) Vital Signs Vital Signs - 24 hr 04/13/21 13:41 Temperature 35.9 C L Temperature Source Temporal Artery Scan Pulse Rate 87 Pulse Rhythm Regular Pulse Strength Normal Respiratory Rate 18 Respiratory Effort / Characteristics Non-Labored Spontaneous Respiratory Depth Normal Respiratory Pattern Regular Blood Pressure 175/80 H Blood Pressure Mean 111 Blood Pressure Position Sitting Pulse Oximetry 99 Oxygen Delivery Method Room Air Sepsis Recent Fever Within 48 Hours No Sepsis New/Unexplained Change in Mental Status No Sepsis Action Taken by Nursing No Action Required Laboratory Data Result diagrams: 04/13/21 14:25 04/13/21 14:25 Lab Results 04/13/21 04/13/21 04/13/21 Range/Units 14:25 14:25 14:25 WBC 6.30 (4.8-10.8) K/uL RBC 3.34 L (4.2-5.4) M/uL Hgb 9.7 L (12.0-16.0) g/dL Hct 30.3 L (37-47) % MCV 90.7 (80-100) fL MCH 29.0 (25-34) pg MCHC 32.0 (32-36) g/dL RDW Std Deviation 52.5 H (36.4-46.3) fL RDW Coeff of Nisha 15.8 H (11.5-14.5) % Plt Count 221 (130-400) K/uL MPV 10.1 (7.4-10.4) fL Immature Gran % (Auto) 0.2 % Neut % (Auto) 63.5 % Lymph % (Auto) 24.3 % [place] % (Auto) 9.7 % Eos % (Auto) 2.1 % Baso % (Auto) 0.2 % Neut # (Auto) 4.01 (1.4-6.5) K/uL Lymph # (Auto) 1.53 (1.2-3.4) K/uL [place] # (Auto) 0.61 H (0.11-0.59) K/uL Eos # (Auto) 0.13 (0-0.5) K/uL Baso # (Auto) 0.01 (0-0.2) K/uL Immature Gran # (Auto) 0.01 (0.00-0.02) K/uL PT 10.3 (9.0-12.0) Seconds INR 1.0 (0.9-1.1) APTT 28.1 (21.0-31.0) Seconds PTT Ratio 1.1 Sodium 136 (136-145) mmol/L Potassium 4.1 (3.5-5.1) mmol/L Chloride 102 (98-107) mmol/L Carbon Dioxide 30 (21-32) mmol/L Anion Gap 4.0 (3-11) BUN 21 H (7-18) mg/dl Creatinine 0.75 (0.6-1.2) mg/dl Est Cr Clr Drug Dosing 44.0 ml/min Est GFR ( Amer) 88.5 ml/min Est GFR (Non-Af Amer) 76.3 ml/min BUN/Creatinine Ratio 28.1 H (10-20) Glucose 232 H (70-99) mg/dl POC Glucose (70-99) mg/dl Calcium 9.3 (8.5-10.1) mg/dl Magnesium 1.8 (1.8-2.4) mg/dl Total Bilirubin 0.6 (0.2-1) mg/dl AST 12 L (15-37) U/L ALT 13 (12-78) Alkaline Phosphatase 55 (45-117) U/L Troponin I < 0.015 (0-0.045) ng/ml Total Protein 7.4 (6.4-8.2) gm/dl Albumin 3.4 (3.4-5.0) gm/dl Globulin 4.0 (2.5-4.0) gm/dl Albumin/Globulin Ratio 0.9 (0.9-2) SARS-CoV-2, RNA, NAAT (NEGATIVE) 04/13/21 04/13/21 Range/Units 14:40 17:22 WBC (4.8-10.8) K/uL RBC (4.2-5.4) M/uL Hgb (12.0-16.0) g/dL Hct (37-47) % MCV (80-100) fL MCH (25-34) pg MCHC (32-36) g/dL RDW Std Deviation (36.4-46.3) fL RDW Coeff of Nisha (11.5-14.5) % Plt Count (130-400) K/uL MPV (7.4-10.4) fL Immature Gran % (Auto) % Neut % (Auto) % Lymph % (Auto) % [place] % (Auto) % Eos % (Auto) % Baso % (Auto) % Neut # (Auto) (1.4-6.5) K/uL Lymph # (Auto) (1.2-3.4) K/uL [place] # (Auto) (0.11-0.59) K/uL Eos # (Auto) (0-0.5) K/uL Baso # (Auto) (0-0.2) K/uL Immature Gran # (Auto) (0.00-0.02) K/uL PT (9.0-12.0) Seconds INR (0.9-1.1) APTT (21.0-31.0) Seconds PTT Ratio Sodium (136-145) mmol/L Potassium (3.5-5.1) mmol/L Chloride (98-107) mmol/L Carbon Dioxide (21-32) mmol/L Anion Gap (3-11) BUN (7-18) mg/dl Creatinine (0.6-1.2) mg/dl Est Cr Clr Drug Dosing ml/min Est GFR ( Amer) ml/min Est GFR (Non-Af Amer) ml/min BUN/Creatinine Ratio (10-20) Glucose (70-99) mg/dl POC Glucose 231 H (70-99) mg/dl Calcium (8.5-10.1) mg/dl Magnesium (1.8-2.4) mg/dl Total Bilirubin (0.2-1) mg/dl AST (15-37) U/L ALT (12-78) Alkaline Phosphatase (45-117) U/L Troponin I (0-0.045) ng/ml Total Protein (6.4-8.2) gm/dl Albumin (3.4-5.0) gm/dl Globulin (2.5-4.0) gm/dl Albumin/Globulin Ratio (0.9-2) SARS-CoV-2, RNA, NAAT NEGATIVE (NEGATIVE) Administered Medications Discontinued Medications Ioversol (Optiray 320 125ml) 118 ml IV ONCE ONE Stop: 04/13/21 15:59 Last Admin: 04/13/21 15:58 Dose: 118 ml Documented by: [id number] Imaging Data Radiologist's Impression: Chest X-Ray 04/13/21 14:05 XR chest 1V portable CLINICAL HISTORY: Stroke Like Symptoms TECHNIQUE: Single frontal radiograph of the chest was obtained. Comparison: Comparison is made to chest one view 06/09/2017 FINDINGS: No lines and tubes are seen. Calcified aortic knob is seen. Interstitial prominence is again noted. No evidence of pleural effusion or pneumothorax. IMPRESSION: Interstitial prominence is unchanged from prior exam. This may represent scarring versus atelectasis. ACT 112: Negative or not required by law. Electronically signed by: Caio Staley M.D. 04/13/2021 2:[address] 04/13/21 14:05 CT angio head w con, CT head/brain wo con, CT angio neck with con CLINICAL HISTORY: Stroke Like Symptoms TECHNIQUE: Contiguous axial CT images of the head were acquired from the base of the skull to the vertex without intravenous contrast administration. CT angiography of the head and neck was performed following intravenous administration of iodinated contrast. Coronal and sagittal MIPS were obtained from the axial data set and were submitted for review. Automated dose lowering techniques and/or adjustment according to patient size were utilized for this examination. All measurements were calculated based on NASCET criteria. Comparison: None available at the time of this dictation. FINDINGS: CT head: Areas of decreased attenuation are present in the periventricular and subcortical white matter bilaterally consistent with small vessel ischemic disease. Generalized cerebral atrophy with commensurate enlargement of the ventricles, sulci, and cisterns is also present. There is no acute intracranial hemorrhage or evidence of acute territorial infarction. No shift of the midline structures, mass effect, or extra-axial abnormalities are shown. Atherosclerotic calcifications are present in the intracranial segments of the internal carotid arteries. CTA Neck: A 3 vessel aortic arch is shown. There is no significant atherosclerotic plaque in the aortic arch or the origins of the innominate, left common carotid, and left subclavian arteries. The common carotid, external carotid, cervical segments of the internal carotid arteries, and the cervical segments of the vertebral arteries are patent without hemodynamically significant stenosis. The right vertebral artery is dominant. Lungs and soft tissues are unremarkable. CTA Head: The anterior and posterior cerebral circulations are patent. There is atherosclerosis of the major vessels but no hemodynamically significant stenosis, aneurysm, dissection, or arteriovenous malformation is shown. IMPRESSION: 1. No acute intracranial hemorrhage, evidence of acute territorial infarction, or other acute intracranial disease process. 2. No occlusion, hemodynamically significant stenosis, aneurysm, dissection, or arteriovenous malformation in the major intracranial arteries. 3. No occlusion, hemodynamically significant stenosis, or dissection in the major cervical arteries. Assessment of stenosis of the internal carotid arteries is based on NASCET criteria. ACT 112: Negative or not required by law. Electronically signed by: Caio Staley M.D. 04/13/2021 4:26 PM Head CTA 04/13/21 14:05 CT angio head w con, CT head/brain wo con, CT angio neck with con CLINICAL HISTORY: Stroke Like Symptoms TECHNIQUE: Contiguous axial CT images of the head were acquired from the base of the skull to the vertex without intravenous contrast administration. CT angiography of the head and neck was performed following intravenous administration of iodinated contrast. Coronal and sagittal MIPS were obtained from the axial data set and were submitted for review. Automated dose lowering techniques and/or adjustment according to patient size were utilized for this examination. All measurements were calculated based on NASCET criteria. Comparison: None available at the time of this dictation. FINDINGS: CT head: Areas of decreased attenuation are present in the periventricular and subcortical white matter bilaterally consistent with small vessel ischemic disease. Generalized cerebral atrophy with commensurate enlargement of the ventricles, sulci, and cisterns is also present. There is no acute intracranial hemorrhage or evidence of acute territorial infarction. No shift of the midline structures, mass effect, or extra-axial abnormalities are shown. Atheroscle rotic calcifications are present in the intracranial segments of the internal carotid arteries. CTA Neck: A 3 vessel aortic arch is shown. There is no significant atheroscle rotic plaque in the aortic arch or the origins of the innominate, left common carotid, and left subclavian arteries. The common carotid, external carotid, cervical segments of the internal carotid arteries, and the cervical segments of the vertebral arteries are patent without hemodynamically significant stenosis. The right vertebral artery is dominant. Lungs and soft tissues are unremarkable. CTA Head: The anterior and posterior cerebral circulations are patent. There is atherosclerosis of the major vessels but no hemodynamically significant stenosis, aneurysm, dissection, or arteriovenous malformation is shown. IMPRESSION: 1. No acute intracranial hemorrhage, evidence of acute territorial infarction, or other acute intracranial disease process. 2. No occlusion, hemodynamically significant stenosis, aneurysm, dissection, or arteriovenous malformation in the major intracranial arteries. 3. No occlusion, hemodynamically significant stenosis, or dissection in the major cervical arteries. Assessment of stenosis of the internal carotid arteries is based on NASCET criteria. ACT 112: Negative or not required by law. Electronically signed by: Caio Staley M.D. 04/13/2021 4:26 PM Neck CTA 04/13/21 14:05 CT angio head w con, CT head/brain wo con, CT angio neck with con CLINICAL HISTORY: Stroke Like Symptoms TECHNIQUE: Contiguous axial CT images of the head were acquired from the base of the skull to the vertex without intravenous contrast administration. CT angiography of the head and neck was performed following intravenous administration of iodinated contrast. Coronal and sagittal MIPS were obtained from the axial data set and were submitted for review. Automated dose lowering techniques and/or adjustment according to patient size were utilized for this examination. All measurements were calculated based on NASCET criteria. Comparison: None available at the time of this dictation. FINDINGS: CT head: Areas of decreased attenuation are present in the periventricular and subcortical white matter bilaterally consistent with small vessel ischemic disease. Generalized cerebral atrophy with commensurate enlargement of the ventricles, sulci, and cisterns is also present. There is no acute intracranial hemorrhage or evidence of acute territorial infarction. No shift of the midline structures, mass effect, or extra-axial abnormalities are shown. Atherosclerotic calcifications are present in the intracranial segments of the internal carotid arteries. CTA Neck: A 3 vessel aortic arch is shown. There is no significant atherosclerotic plaque in the aortic arch or the origins of the innominate, left common carotid, and left subclavian arteries. The common carotid, external carotid, cervical segments of the internal carotid arteries, and the cervical segments of the vertebral arteries are patent without hemodynamically significant stenosis. The right vertebral artery is dominant. Lungs and soft tissues are unremarkable. CTA Head: The anterior and posterior cerebral circulations are patent. There is atherosclerosis of the major vessels but no hemodynamically significant stenosis, aneurysm, dissection, or arteriovenous malformation is shown. IMPRESSION: 1. No acute intracranial hemorrhage, evidence of acute territorial infarction, or other acute intracranial disease process. 2. No occlusion, hemodynamically significant stenosis, aneurysm, dissection, or arteriovenous malformation in the major intracranial arteries. 3. No occlusion, hemodynamically significant stenosis, or dissection in the major cervical arteries. Assessment of stenosis of the internal carotid arteries is based on NASCET criteria. ACT 112: Negative or not required by law. Electronically signed by: Caio Staley M.D. 04/13/2021 4:26 PM Discharge Plan Visit Data Chief Complaint: TIA Symptoms Stated Complaint: CONFUSED AND DISORIENTED ED Provider: Jose Montaño Discharge Problem: TIA (transient ischemic attack), Anemia Forms Stand Alone Forms: [id number] Prescriptions Prescriptions: No Action losartan 50 mg tablet 50 mg PO DAILY Qty: 30 RF: 5 simvastatin 20 mg tablet 20 mg PO HS Qty: 90 RF: 3 tramadol 50 mg tablet 50 mg PO BID PRN (Reason: pain) Qty: 60 RF: 0 ferrous sulfate 325 mg (65 mg iron) tablet 325 mg PO DAILY Qty: 30 RF: 1 metformin 1,000 mg tablet 500 mg PO DAILY RF: 0 aspirin 81 mg Tablet,Delayed Release (Dr/Ec) 81 mg PO BID Qty: 0 RF: 0 hydroxyzine HCl 10 mg tablet 5 - 10 mg PO HS PRN (Reason: insomnia) RF: 0 Referrals Referrals: Noam Sim MD [Physician] - Discharge Problem: Anemia Qualifiers: Anemia type: unspecified type Qualified Code(s): D64.9 - Anemia, unspecified
[2021-04-13 14:38] LABS: Basophils # (auto) 0.01 K/uL (0-0.2); Basophils % (auto) 0.2 %; Eosinophils # (auto) 0.13 K/uL (0-0.5); Eosinophils % (auto) 2.1 %; Hematocrit (blood only) 30.3 % (37-47); Hemoglobin 9.7 g/dL (12.0-16.0); Immature Granulocytes # (auto) 0.01 K/uL (0.00-0.02); Immature Granulocytes % (auto) 0.2 %; Lymphocytes # (auto) 1.53 K/uL (1.2-3.4); Lymphocytes % (auto) 24.3 %; Mean Corpuscular Volume 90.7 fL (80-100); Mean Platelet Volume 10.1 fL (7.4-10.4); Monocytes # (auto) 0.61 K/uL (0.11-0.59); Monocytes % (auto) 9.7 %; Neutrophils # (auto) 4.01 K/uL (1.4-6.5); Neutrophils % (auto) 63.5 %; Platelet Count 221 K/uL (130-400); RDW Coefficient of Variation 15.8 % (11.5-14.5); RDW Standard Deviation 52.5 fL (36.4-46.3); Red Blood Count 3.34 M/uL (4.2-5.4)
--- NOTE | 2021-04-13 14:40 | XRay Report ---
XR chest 1V portable CLINICAL HISTORY: Stroke Like Symptoms TECHNIQUE: Single frontal radiograph of the chest was obtained. Comparison: Comparison is made to chest one view 06/09/2017 FINDINGS: No lines and tubes are seen. Calcified aortic knob is seen. Interstitial prominence is again noted. N o evidence of pleural effusion or pneumothorax. IMPRESSION: Interstitial prominence is unchanged from prior exam. This may represent scarring versus atelectasis. ACT 112: Negative or not required by law. Electronically signed by: Caio Staley M.D. 04/13/2021 2:38 PM
[2021-04-13 14:48] LABS: Partial Thromboplastin Ratio 1.1; Partial Thromboplastin Time 28.1 Seconds (21.0-31.0); Prothrombin Time 10.3 Seconds (9.0-12.0)
[2021-04-13 15:11] LABS: Alanine Aminotransferase 13 (12-78); Albumin Level 3.4 gm/dl (3.4-5.0); Aspartate Aminotransferase 12 U/L (15-37); BUN Creatinine Ratio 28.1 (10-20); Blood Urea Nitrogen 21 mg/dl (7-18); Calcium 9.3 mg/dl (8.5-10.1); Carbon Dioxide 30 mmol/L (21-32); Chloride 102 mmol/L (98-107); Est GFR (African American) 88.5 ml/min; Est GFR (Non-African American) 76.3 ml/min; Glucose 232 mg/dl (70-99); Magnesium 1.8 mg/dl (1.8-2.4); Potassium 4.1 mmol/L (3.5-5.1); Sodium 136 mmol/L (136-145)
[2021-04-13 15:16] LABS: Albumin Globulin Ratio 0.9 (0.9-2); Alkaline Phosphatase 55 U/L (45-117); Bilirubin,Total 0.6 mg/dl (0.2-1); Total Protein 7.4 gm/dl (6.4-8.2); Troponin I < 0.015 ng/ml (0-0.045)
[2021-04-13] MEDS ORDERED: OPTIRAY 320 125ml IV ONE (15:58)
--- NOTE | 2021-04-13 16:27 | CT Scan Report ---
CT angio head w con, CT head/brain wo con, CT angio neck with con CLINICAL HISTORY: Stroke Like Symptoms TECHNIQUE: Contiguous axial CT images of the head were acquired from the base of the skull to the charito judy without intravenous contrast administration. CT angiography of the head and neck was performed f ollowing intravenous administration of iodinated contrast. Coronal and sagittal MIPS were obtained fr om the axial data set and were submitted for review. Automated dose lowering techniques and/or adjus tment according to patient size were utilized for this examination. All measurements were calculated based on NASCET criteria. Comparison: None available at the time of this dictation. FINDINGS: CT head: Areas of decreased attenuation are present in the periventricular and subcortical white godfrey er bilaterally consistent with small vessel ischemic disease. Generalized cerebral atrophy with comme nsurate enlargement of the ventricles, sulci, and cisterns is also present. There is no acute intracr anial hemorrhage or evidence of acute territorial infarction. No shift of the midline structures, mas s effect, or extra-axial abnormalities are shown. Atherosclerotic calcifications are present in the intracranial segments of the internal carotid arteries. CTA Neck: A 3 vessel aortic arch is shown. There is no significant atherosclerotic plaque in the aor tic arch or the origins of the innominate, left common carotid, and left subclavian arteries. The c ommon carotid, external carotid, cervical segments of the internal carotid arteries, and the cervical segments of the vertebral arteries are patent without hemodynamically significant stenosis. The righ t vertebral artery is dominant. Lungs and soft tissues are unremarkable. CTA Head: The anterior and posterior cerebral circulations are patent. There is atherosclerosis of t he major vessels but no hemodynamically significant stenosis, aneurysm, dissection, or arteriovenous malformation is shown. IMPRESSION: 1. No acute intracranial hemorrhage, evidence of acute territorial infarction, or other acute intrac ranial disease process. 2. No occlusion, hemodynamically significant stenosis, aneurysm, dissection, or arteriovenous malfor mation in the major intracranial arteries. 3. No occlusion, hemodynamically significant stenosis, or dissection in the major cervical arteries. Assessment of stenosis of the internal carotid arteries is based on NASCET criteria. ACT 112: Negative or not required by law. Electronically signed by: Caio Staley M.D. 04/13/2021 4:26 PM
--- NOTE | 2021-04-13 18:07 | History & Physical Report ---
Date of Service April 13, 2021 Assessment & Plan (1) TIA (transient ischemic attack): Plan: Patient presents with transient word finding difficulties without any evidence of acute stroke at this time was given 2 baby aspirin by her son midday. She is complete resolution of her symptoms. We will have the patient on telemetry floor to look for arrhythmias check an echocardiogram continue aspirin at 81 a day continue statin increased to 40 mg of Zocor. Patient with an MRI of her brain. If negative likely the patient be discharged will discuss with neurology with her increase her aspirin to 325 versus add Plavix for short period of time Otherwise we will control her secondary risk of diabetes and hypertension. We will have her evaluated by PT OT especially pain attention to her chronic left leg pain patient may benefit from home PT (2) Diabetes mellitus type II, uncontrolled: Plan: Patient is glucoses in the 200s unknown whether she may have had hypoglycemia to cause her symptoms we will start insulin sliding scale holding Metformin. (3) Hypercholesterolemia: Plan: Zocor 40 mg a day (4) Anemia: Plan: Patient is anemia which seems to be chronic. Indices are normal we will check iron TIBC B12 folic acid Plan: DVT prevention is heparin subcu History of Present Illness Primary Care Provider: Miguel Shabazz MD -year-old female brought in by her son due to a period of aphasia and word finding difficulties without any other systemic symptoms with exception of extreme fatigue she has complete resolution. Work-up in the emergency department is unremarkable including CTA of the head and angiogram of the head and neck. Patient is a diabetic and the patient's son did not test her sugar at home. Typically is on oral medications but reportedly has been eating and drinking normally has not had any changes in bowel or bladder function. She currently is without complaints and although having some memory dysfunction seems to have full recovery with exception of some left leg weakness which reportedly is chronic from her previous hip replacement in the summer 2020 Allergies Allergy/AdvReac Type Severity Reaction Status Date / Time No Known Drug Allergies Allergy Unknown . Verified 04/13/21 13:53 METAL Allergy Unknown RASH Uncoded 04/13/21 13:53 Home Medications Medication Instructions Recorded Confirmed Type aspirin 81 mg tablet,delayed 81 mg PO BID #0 tab 09/16/20 04/13/21 Rx release losartan 50 mg tablet 50 mg PO DAILY #30 tab 10/11/20 04/13/21 Rx simvastatin 20 mg tablet 20 mg PO HS #90 tab 10/24/20 04/13/21 Rx ferrous sulfate 325 mg (65 mg 325 mg PO DAILY #30 tab 11/27/20 04/13/21 Rx iron) tablet metformin 1,000 mg tablet 500 mg PO DAILY tab 03/25/21 04/13/21 History tramadol 50 mg tablet 50 mg PO BID PRN #60 tab 03/26/21 04/13/21 Rx hydroxyzine HCl 10 mg tablet 5 - 10 mg PO HS PRN 04/13/21 04/13/21 History Past Med/Surg History Medical History (Updated 04/13/21 @ 18:06 by Ronal Dias MD) Bilateral leg edema Diabetes mellitus type II, uncontrolled Exposure to COVID-19 virus Hx of basal cell carcinoma Hx of diabetic retinopathy Hypercholesterolemia Hypertension Iliotibial band syndrome Left groin pain Proteinuria Surgical History (Updated 12/30/20 @ 22:48 by HERMAN Sabillon) History of surgical removal of skin lesion from R arm Family History Mother Colorectal cancer Diabetes Grandfather (Paternal) Diabetes Grandfather (Paternal) No problems noted. Grandmother (Maternal) Diabetes Denies family history of Ovarian cancer Prostate cancer Myocardial infarction Breast cancer Social History Smoking Status: Never smoker Hx Alcohol Use: Yes Alcohol type: wine Hx Substance Use: No Preferred Language: American Communication Ability: Effective Thread Grinder Tool Required: No Beliefs That Will Affect Care: None marital status: / Current Living Situation: Alone Feels Safe at Home: Yes Assistive Devices: Walker Review of Systems Review of Systems: Mild distress and fatigue no headache, no visual changes no speech or swallowing issues no chest pain, pressure or palpitations no shortness of breath, cough or wheezes no abdominal pain, nausea or vomiting, diarrhea or constipation no dysuria, hematuria or frequency no focal joint pain or swelling no back pain, CVA tenderness or radicular pain no bruising, bleeding or rashes no focal signs of numbness or altered sensation does have memory impairment Has had chronic left lower extremity weakness since hip replacement March 2021 no complaints of anxiety or depression.. Physical Exam Physical Exam: The patient appeared well nourished and normally developed. Vital signs as documented. Head exam is normocephalic atraumatic Neck is without JVD, thyromegaly, or carotid bruits. Lungs are clear to auscultation, no focal loss of breath sounds Cardiac exam, Rhythm is regular.. No murmurs, rubs or gallops. Abdominal exam reveals normal bowel sounds, soft non tender, no masses Extremities are left leg is distal trace edema which has been chronic but both pedal pulses are present Neurologic exam is alert and oriented x3 but has some memory impairment in casual conversation no focal loss of sensation, weakness to hip flexors on the left Skin is without bruises or rashes Psychologically is without concerns for anxiety or depression. Likely has the beginning of some dementia Results & Data Results & Data ([facility]) Vital Signs (Past 12 Hours) Vital Signs Temp Pulse Resp BP Pulse Ox 04/13/21 13:41 96.6 F L 87 18 175/80 H 99 Diagnostic Findings Chest X-Ray 04/13/21 14:05 XR chest 1V portable CLINICAL HISTORY: Stroke Like Symptoms TECHNIQUE: Single frontal radiograph of the chest was obtained. Comparison: Comparison is made to chest one view 06/09/2017 FINDINGS: No lines and tubes are seen. Calcified aortic knob is seen. Interstitial prominence is again noted. No evidence of pleural effusion or pneumothorax. IMPRESSION: Interstitial prominence is unchanged from prior exam. This may represent scarring versus atelectasis. ACT 112: Negative or not required by law. Electronically signed by: Caio Staley M.D. 04/13/2021 2:[address] 04/13/21 14:05 CT angio head w con, CT head/brain wo con, CT angio neck with con CLINICAL HISTORY: Stroke Like Symptoms TECHNIQUE: Contiguous axial CT images of the head were acquired from the base of the skull to the vertex without intravenous contrast administration. CT angiography of the head and neck was performed following intravenous administration of iodinated contrast. Coronal and sagittal MIPS were obtained from the axial data set and were submitted for review. Automated dose lowering techniques and/or adjustment according to patient size were utilized for this examination. All measurements were calculated based on NASCET criteria. Comparison: None available at the time of this dictation. FINDINGS: CT head: Areas of decreased attenuation are present in the periventricular and subcortical white matter bilaterally consistent with small vessel ischemic disease. Generalized cerebral atrophy with commensurate enlargement of the ventricles, sulci, and cisterns is also present. There is no acute intracranial hemorrhage or evidence of acute territorial infarction. No shift of the midline structures, mass effect, or extra-axial abnormalities are shown. Atherosclerotic calcifications are present in the intracranial segments of the internal carotid arteries. CTA Neck: A 3 vessel aortic arch is shown. There is no significant atherosclerotic plaque in the aortic arch or the origins of the innominate, left common carotid, and left subclavian arteries. The common carotid, external carotid, cervical segments of the internal carotid arteries, and the cervical segments of the vertebral arteries are patent without hemodynamically significant stenosis. The right vertebral artery is dominant. Lungs and soft tissues are unremarkable. CTA Head: The anterior and posterior cerebral circulations are patent. There is atherosclerosis of the major vessels but no hemodynamically significant stenosis, aneurysm, dissection, or arteriovenous malformation is shown. IMPRESSION: 1. No acute intracranial hemorrhage, evidence of acute territorial infarction, or other acute intracranial disease process. 2. No occlusion, hemodynamically significant stenosis, aneurysm, dissection, or arteriovenous malformation in the major intracranial arteries. 3. No occlusion, hemodynamically significant stenosis, or dissection in the major cervical arteries. Assessment of stenosis of the internal carotid arteries is based on NASCET criteria. ACT 112: Negative or not required by law. Electronically signed by: Caio Staley M.D. 04/13/2021 4:26 PM Head CTA 04/13/21 14:05 CT angio head w con, CT head/brain wo con, CT angio neck with con CLINICAL HISTORY: Stroke Like Symptoms TECHNIQUE: Contiguous axial CT images of the head were acquired from the base of the skull to the vertex without intravenous contrast administration. CT angiography of the head and neck was performed following intravenous administration of iodinated contrast. Coronal and sagittal MIPS were obtained from the axial data set and were submitted for review. Automated dose lowering techniques and/or adjustment according to patient size were utilized for this examination. All measurements were calculated based on NASCET criteria. Comparison: None available at the time of this dictation. FINDINGS: CT head: Areas of decreased attenuation are present in the periventricular and subcortical white matter bilaterally consistent with small vessel ischemic disease. Generalized cerebral atrophy with commensurate enlargement of the ventricles, sulci, and cisterns is also present. There is no acute intracranial hemorrhage or evidence of acute territorial infarction. No shift of the midline structures, mass effect, or extra-axial abnormalities are shown. A therosclerotic calcifications are present in the intracranial segments of the internal carotid arteries. CTA Neck: A 3 vessel aortic arch is shown. There is no significant atherosclerotic plaque in the aortic arch or the origins of the innominate, left common carotid, and left subclavian arteries. The common carotid, external carotid, cervical segments of the internal carotid arteries, and the cervical segments of the vertebral arteries are patent without hemodynamically significant stenosis. The right vertebral artery is dominant. Lungs and soft tissues are unremarkable. CTA Head: The anterior and posterior cerebral circulations are patent. There is atherosclerosis of the major vessels but no hemodynamically significant stenosis, aneurysm, dissection, or arteriovenous malformation is shown. IMPRESSION: 1. No acute intracranial hemorrhage, evidence of acute territorial infarction, or other acute intracranial disease process. 2. No occlusion, hemodynamically significant stenosis, aneurysm, dissection, or arteriovenous malformation in the major intracranial arteries. 3. No occlusion, hemodynamically significant stenosis, or dissection in the major cervical arteries. Assessment of stenosis of the internal carotid arteries is based on NASCET criteria. ACT 112: Negative or not required by law. Electronically signed by: Caio Staley M.D. 04/13/2021 4:26 PM Neck CTA 04/13/21 14:05 CT angio head w con, CT head/brain wo con, CT angio neck with con CLINICAL HISTORY: Stroke Like Symptoms TECHNIQUE: Contiguous axial CT images of the head were acquired from the base of the skull to the vertex without intravenous contrast administration. CT angiography of the head and neck was performed following intravenous administration of iodinated contrast. Coronal and sagittal MIPS were obtained from the axial data set and were submitted for review. Automated dose lowering techniques and/or adjustment according to patient size were utilized for this examination. All measurements were calculated based on NASCET criteria. Comparison: None available at the time of this dictation. FINDINGS: CT head: Areas of decreased attenuation are present in the periventricular and subcortical white matter bilaterally consistent with small vessel ischemic disease. Generalized cerebral atrophy with commensurate enlargement of the ventricles, sulci, and cisterns is also present. There is no acute intracranial hemorrhage or evidence of acute territorial infarction. No shift of the midline structures, mass effect, or extra-axial abnormalities are shown. Atherosclerotic calcifications are present in the intracranial segments of the internal carotid arteries. CTA Neck: A 3 vessel aortic arch is shown. There is no significant atherosclerotic plaque in the aortic arch or the origins of the innominate, left common carotid, and left subclavian arteries. The common carotid, external carotid, cervical segments of the internal carotid arteries, and the cervical segments of the vertebral arteries are patent without hemodynamically significant stenosis. The right vertebral artery is dominant. Lungs and soft tissues are unremarkable. CTA Head: The anterior and posterior cerebral circulations are patent. There is atherosclerosis of the major vessels but no hemodynamically significant stenosis, aneurysm, dissection, or arteriovenous malformation is shown. IMPRESSION: 1. No acute intracranial hemorrhage, evidence of acute territorial infarction, or other acute intracranial disease process. 2. No occlusion, hemodynamically significant stenosis, aneurysm, dissection, or arteriovenous malformation in the major intracranial arteries. 3. No occlusion, hemodynamically significant stenosis, or dissection in the m ajor cervical arteries. Assessment of stenosis of the internal carotid arteries is based on NASCET criteria. ACT 112: Negative or not required by law. Electronically signed by: Caio Staley M.D. 04/13/2021 4:26 PM ECG Additional Comments: EKG shows normal sinus rhythm without any acute ST or T wave changes Code Status & VTE Plan VTE Prophylaxis Plan VTE Prophylaxis will be ordered: Yes PG Care Time/CCT Total # of Minutes Spent Total Time Spent with Patient: Total time spent is greater than 50% in coordination of care (as documented) at patient's floor/unit and/or counseling patient: Coding Level of Care Code INT OBSERVATION CARE 50M LVL 2 Diagnoses Diabetes mellitus type II, uncontrolled E11.65 Hypercholesterolemia E78.00 TIA (transient ischemic attack) G45.9 Anemia D64.9
[2021-04-13 21:35] LABS: Appearance Urine Clear (Clear); Bilirubin Urine Negative (Negative); Blood Urine Negative (Negative); Color Urine Yellow; Glucose Urine UA Negative (Negative); Ketones Urine Negative (Negative); Leukocyte Esterase Urine Negative (Negative); Nitrite Urine Negative (Negative); Protein Urine Negative (Negative); Specific Gravity Urine 1.035 (1.000-1.030); Urobilinogen Urine Negative (Negative)
[2021-04-13] MEDS ORDERED: ACETAMINOPHEN 325 MG TAB PO PRN (22:17)
[2021-04-13] MEDS ORDERED: DEXTROSE 50% 50 ML SYRINGE IV PRN (22:17)
[2021-04-13] MEDS ORDERED: CARBOHYDRATES FOR HYPOGLYCEMIA PO PRN (22:17)
[2021-04-13] MEDS ORDERED: SIMVASTATIN 40 MG TAB PO SCH (22:17)
[2021-04-13] MEDS ORDERED: PHARMACIST DISCHARGE MED REC CONSULT PRN (22:17)
[2021-04-13] MEDS ORDERED: GLUCAGON FOR INJ 1 MG VIAL SQ PRN (22:17)
[2021-04-13] MEDS ORDERED: GLUCOSE 10 TABS/TUBE PO PRN (22:17)
[2021-04-13] MEDS ORDERED: GLUCOSE 40% GEL 15 GM TUBE PO PRN (22:17)
[2021-04-13] MEDS ORDERED: traMADol HCL 50 MG TABLET PO PRN (22:17)
[2021-04-13] MEDS ORDERED: ALUMINUM/MAGNESIUM SUSP 30 ML UDC PO PRN (22:17)
[2021-04-13] MEDS ORDERED: ONDANSETRON INJ 2 MG/ML 2 ML VIAL IV PRN (22:17)
[2021-04-13] MEDS ORDERED: LABETALOL HCL IV 5 MG/ML 20ML IV PRN (22:58)
[2021-04-13] MEDS ORDERED: PNEUMOCOCCAL POLYSACCHARIDES 25 MCG/0.5 ML VIAL/SYR IM ONE (23:00)
[2021-04-13] MEDS ORDERED: INFLUENZA VACCINE HIGH DOSE PF 65+ 0.7 ML SYR IM ONE (23:00)
[2021-04-13] MEDS: INSULIN ASPART PER UNIT SC SCH (23:14)
[2021-04-13] MEDS: ASPIRIN 81 MG ECTAB PO SCH (23:24)
[2021-04-13] MEDS: HEPARIN SOD 5,000 UNIT/0.5 ML VIAL SQ SCH (23:25)
[2021-04-14 06:10] LABS: Basophils # (auto) 0.02 K/uL (0-0.2); Basophils % (auto) 0.4 %; Eosinophils # (auto) 0.14 K/uL (0-0.5); Hemoglobin 9.1 g/dL (12.0-16.0); Immature Granulocytes # (auto) 0.01 K/uL (0.00-0.02); Immature Granulocytes % (auto) 0.2 %; Lymphocytes # (auto) 1.66 K/uL (1.2-3.4); Mean Corpuscular Hemoglobin 29.3 pg (25-34); Mean Corpuscular Hgb Conc 32.5 g/dL (32-36); Mean Platelet Volume 10.7 fL (7.4-10.4); Neutrophils # (auto) 2.18 K/uL (1.4-6.5); Neutrophils % (auto) 47.4 %; Platelet Count 212 K/uL (130-400); RDW Coefficient of Variation 15.8 % (11.5-14.5); RDW Standard Deviation 51.9 fL (36.4-46.3); Red Blood Count 3.11 M/uL (4.2-5.4); White Blood Count 4.61 K/uL (4.8-10.8)
[2021-04-14 06:38] LABS: BUN Creatinine Ratio 27.1 (10-20); Calcium 9.1 mg/dl (8.5-10.1); Est GFR (African American) 89.9 ml/min; Est GFR (Non-African American) 77.6 ml/min; Potassium 3.6 mmol/L (3.5-5.1)
[2021-04-14 08:04] LABS: Folate (Folic Acid) 14.9 ng/ml (>5.38)
--- NOTE | 2021-04-14 08:35 | Hospitalist Progress Note ---
Date of Service April 14, 2021 Assessment & Plan (1) TIA (transient ischemic attack): Plan: Patient presents with transient word finding difficulties without any evidence of acute stroke at this time was given 2 baby aspirin by her son midday. She is complete resolution of her symptoms. We will have the patient on telemetry floor to look for arrhythmias check an echocardiogram continue aspirin at 81 a day continue statin increased to 40 mg of Zocor. Patient with an MRI of her brain. If negative likely the patient be discharged will discuss with neurology with her increase her aspirin to 325 versus add Plavix for short period of time Otherwise we will control her secondary risk of diabetes and hypertension. We will have her evaluated by PT OT especially pain attention to her chronic left leg pain patient may benefit from home PT How long should plavix be taken after TIA? Based on the results of the CHANCE trial, the [place] [employer]/[place] [employer] recommends clopidogrel and aspirin for 21 daysstarting in the first 24 hours after a minor stroke or TIA (2) Diabetes mellitus type II, uncontrolled: Plan: Patient is glucoses in the 200s unknown whether she may have had hypoglycemia to cause her symptoms we will start insulin sliding scale holding Metformin. (3) Hypercholesterolemia: Plan: Zocor 40 mg a day (4) Anemia: Plan: Patient is anemia which seems to be chronic. Indices are normal we will check iron TIBC B12 folic acid Plan: DVT prevention is heparin subcu Admission and Anticipated Discharge Date Admission Date: April 13, 2021 Results & Data Results & Data ([facility]) Vital Signs (Past 12 Hours) Vital Signs Temp Pulse Pulse Resp BP Pulse Ox Pulse Ox 04/14/21 07:57 99.3 F 74 18 147/65 H 99 04/14/21 07:11 69 04/14/21 03:02 98.6 F 70 16 141/63 H 97 04/13/21 23:59 88 71 164/77 H 04/13/21 22:17 98.1 F 81 14 195/87 H 98 98 04/13/21 21:00 82 16 166/74 H 98 PG Care Time/CCT Total # of Minutes Spent Total Time Spent with Patient: Total time spent is greater than 50% in coordination of care (as documented) at patient's floor/unit and/or counseling patient: Coding Diagnoses TIA (transient ischemic attack) G45.9 Diabetes mellitus type II, uncontrolled E11.65 Hypercholesterolemia E78.00 Anemia D64.9
[2021-04-14] MEDS: ASPIRIN 81 MG ECTAB PO SCH (08:41)
[2021-04-14] MEDS: HEPARIN SOD 5,000 UNIT/0.5 ML VIAL SQ SCH (08:42)
[2021-04-14] MEDS: INSULIN ASPART PER UNIT SC SCH ×2 (08:43→11:43)
[2021-04-14] MEDS ORDERED: FERROUS SULFATE 325 MG TAB PO SCH (09:00)
[2021-04-14] MEDS ORDERED: LOSARTAN POTASSIUM 50 MG TAB PO SCH (09:00)
--- NOTE | 2021-04-14 10:18 | Magnetic Resonance Report ---
Brain MRI WITHOUT CONTRAST HISTORY: eval for stoke did have aphasia TECHNIQUE: Multiplanar multisequence MRI of the brain was performed without the use of contrast. COMPARISON STUDY: Head and neck CTA 04/13/2021. FINDINGS: There is no mass, hematoma, midline shift, or acute infarct. The paranasal sinuses are vega r. The mastoid air cells are clear. The ventricles and sulci demonstrate mild age-related involutiona l changes. Scattered foci of T2 hyperintensity seen within the periventricular and subcortical white matter are nonspecific but suggestive of mild microvascular ischemic changes. The major vascular flow voids at the skull base are well-maintained. Evidence for prior bilateral lens replacement. IMPRESSION: No acute intracranial abnormality. Scattered foci of T2 hyperintensity seen within the periventricula r and subcortical white matter are nonspecific but favor microvascular ischemic change. ACT 112: Negative or not required by law. Electronically signed by: Lan Shrestha M.D. 04/14/2021 10:17 AM
--- NOTE | 2021-04-14 11:14 | XCELERA ---
[id number]
[2021-04-14] MEDS ORDERED: CLOPIDOGREL BISULFATE 75 MG TAB PO ONE (12:09)
[2021-04-14] MEDS ORDERED: STROKE PATIENT DISCHARGE STA (13:23)
--- NOTE | 2021-04-14 14:42 | Pharmacy Report ---
Pharmacist Stroke Counseling - Date of Service April 14, 2021 - Scope: Pharmacy has been consulted to provide medication discharge counseling for this patient admitted with possible TIA as per the Pharmacist Discharge Counseling for Stroke Patients Protocol. - Medications on Discharge: Home Medications Medication Instructions Recorded Confirmed metformin 1,000 mg tablet 500 mg PO DAILY tab 03/25/21 04/13/21 hydroxyzine HCl 10 mg tablet 5 - 10 mg PO HS PRN 04/13/21 04/13/21 New Rx's Medication Instructions Recorded aspirin 81 mg tablet,delayed 81 mg PO BID #0 tab 09/16/20 release losartan 50 mg tablet 50 mg PO DAILY #30 tab 10/11/20 simvastatin 20 mg tablet 20 mg PO HS #90 tab 10/24/20 ferrous sulfate 325 mg (65 mg 325 mg PO DAILY #30 tab 11/27/20 iron) tablet tramadol 50 mg tablet 50 mg PO BID PRN #60 tab 03/26/21 clopidogrel 75 mg tablet (Plavix) 75 mg PO DAILY #20 tab 04/14/21 - Action: The above medications, specifically ones for stroke treatment/prophylaxis, have been reviewed in detail with the patient prior to discharge. This includes indication, common adverse reactions, drug interactions, and medication administration. Medication counseling has been employed using the teach-back method to ensure understanding. - Outcome: The patient was quite confused about diagnosis and why she needed to take Plavix. Explained to patient it was just for 20 days then she would continue on just her aspirin. Verified DC instructions with Dr Dias, because patient was sure when I initially spoke with her that she was not going to start a new medication. RNKenji reenforced that she was directed to take the plavix x 20 days. Thank you for allowing pharmacy to be involved in the care of this patient. Please call [phone] with any additional questions
--- NOTE | 2021-04-14 17:01 | Discharge Summary ---
Date of Service April 14, 2021 Admission HPI Per Admitting Provider -year-old female brought in by her son due to a period of aphasia and word finding difficulties without any other systemic symptoms with exception of extreme fatigue she has complete resolution. Work-up in the emergency department is unremarkable including CTA of the head and angiogram of the head and neck. Patient is a diabetic and the patient's son did not test her sugar at home. Typically is on oral medications but reportedly has been eating and drinking normally has not had any changes in bowel or bladder function. 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 Lungs are clear to auscultation and appear unlabored Cardiac exam, Rhythm is regular.. No murmurs, rubs or gallops. Abdominal exam reveals normal bowel sounds, soft non tender, no masses Extremities are nonedematous and both pedal pulses are normal. Neurologic exam is alert and oriented, no focal loss of strength or sensation Skin is without bruises or rashes Psychologically is without concerns for anxiety or depression. Discharge Data Allergies Allergy/AdvReac Type Severity Reaction Status Date / Time No Known Drug Allergies Allergy Unknown . Verified 04/13/21 13:53 METAL Allergy Unknown RASH Uncoded 04/13/21 13:53 Consultations 04/13/21 17:17 ED Decision to Admit Stat Ordered Studies 04/13/21 14:05 CT angio head w con Stat CT angio neck with con Stat CT head/brain wo con Stat 04/14/21 22:17 MR brain wo con Routine Hospital Course (1) TIA (transient ischemic attack): Patient presents with transient word finding difficulties without any evidence of acute stroke at this time was given 2 baby aspirin by her son midday. She is complete resolution of her symptoms. tele monitoring is negative for arrhythmias, echocardiogram shows no embolic or shunt concerns. continue aspirin at 81 a day continue statin increased to 40 mg of Zocor. Patient with an MRI of her brain is negative continue low dose aspirin Otherwise we will control her secondary risk of diabetes and hypertension. Cholesterol is good continue zocor low dose How long should plavix be taken after TIA? Based on the results of the CHANCE trial, the [place] [employer]/[place] [employer] recommends clopidogrel and aspirin for 21 daysstarting in the first 24 hours after a minor stroke or TIA (2) Diabetes mellitus type II, uncontrolled: Patient is glucoses in the 200s unknown whether she may have had hypoglycemia to cause her symptoms resume home diabetic regiment (3) Hypercholesterolemia: Zocor 20 mg a day (4) Anemia: Patient is anemia which seems to be chronic. Indices are normal so are iron TIBC B12 folic acid DVT prevention is heparin subcu Total Time Total Time Spent Total Time Spent (In Minutes): It required greater than 30 minutes to prepare this patient for discharge Discharge Plan Discharge Items Patient Disposition: Home - Self-Care Reason For Visit: TIA, UNCONTROLLED DIABETES Discharge Diagnosis: reversible neurologic changes with no permanent injury seen on imaging Activity: Per Instructions section Activity Comment: slowly resume normal activity Non-emergency contact: Primary Care Provider Call non-emergency contact if: your symptoms worsen and you have a fever Follow-up/Referrals: Miguel Shabazz MD [Primary Care Provider] - Diet: Carb Consistent or DM2 Addtl Attending Provider Instructions: You have been diagnosed with a transient ischemic attack (TIA). A TIA is also known as a mini-stroke. Blood could not reach part of your brain for a short period of time. Unlike a stroke, a TIA does not usually cause lasting damage. If you think you are having symptoms of a TIA or stroke,get medical help right away. Do this even if your symptoms go away. we recommend to take a new medicine plavix once a day for 3 weeks, first dose given in hospital we recommend you continue your Zocor(simvistatin) 20 mg continue to take a baby aspirin a day Prevention * Take your medicines exactly as directed. Dont skip doses. * Limit your alcohol.Don't have more than 2 drinks a day if you're a man and no more than 1 drink a day if you're a woman. * Keep a healthy weight.Get help to lose any extra pounds (kilograms). If you are overweight, your healthcare provider will work with you to lose weight and lower your body mass index (BMI) to a normal or near-normal level. Making diet changes and increasing physical activity can help. * Start an exercise program.Ask your healthcare provider how to get started and how much activity you should try to get on a daily or weekly basis. You can benefit from simple activities such as walking or gardening. * Learn ways to manage your stress.There are many methods to manage stress. These can help you deal with stress in your home and work life. * You may also need to change what you eat. Your healthcare provider may refer you to a registered dietitian for help with diet changes. These changes may include: * Eating less fat and cholesterol * Having less salt (sodium), especially if you have high blood pressure * Eating more fresh vegetables and fruits * Eating lean proteins, such as fish, poultry, and legumes (beans and peas) * Eating less red meat and processed meats * Choosing low-fat dairy products * Using vegetable and nut oils in small amounts * Limiting sweet and processed foods such as chips, cookies, and baked goodsTo cut back on sodium: * Limit the amount of canned, dried, packaged, and fast foods you eat. * Dont add salt to your food. * Season foods with herbs instead of salt when you cook. Pending Studies at Discharge: No Stand-Alone Forms: Medications to Prevent Stroke, [facility], Smoking Cessation Medications and DC Order Prescriptions: New clopidogrel [Plavix] 75 mg tablet 75 mg PO DAILY Qty: 20 RF: 0 Continued losartan 50 mg tablet 50 mg PO DAILY Qty: 30 RF: 5 simvastatin 20 mg tablet 20 mg PO HS Qty: 90 RF: 3 tramadol 50 mg tablet 50 mg PO BID PRN (Reason: pain) Qty: 60 RF: 0 ferrous sulfate 325 mg (65 mg iron) tablet 325 mg PO DAILY Qty: 30 RF: 1 metformin 1,000 mg tablet 500 mg PO DAILY RF: 0 aspirin 81 mg Tablet,Delayed Release (Dr/Ec) 81 mg PO BID Qty: 0 RF: 0 hydroxyzine HCl 10 mg tablet 5 - 10 mg PO HS PRN (Reason: insomnia) RF: 0 Discharge Orders: Discharge Order (Routine); Ordered 04/14/21 Ordered By: Ronal Monroy/Other Patient Handouts: What Is a TIA? Admission Data Admit Date/Time: 04/13/21 17:29 Attending Provider: Ronal Dias Admit Provider: Ronal Dias Primary Care Provider: Miguel Shabazz Other Providers: Ronal Dias Other Interventions: Discharge Summary Assessment (RN) Last Done: 04/14/21 13:30 Coding Level of Care Code D/C DAY MANAGEMENT >30 MINS Diagnoses TIA (transient ischemic attack) G45.9 Diabetes mellitus type II, uncontrolled E11.65 Hypercholesterolemia E78.00 Anemia D64.9
--- NOTE | 2021-04-15 05:34 | Electrocardiogram Report ---
Test Reason : Blood Pressure : / mmHG Vent. Rate : 078 BPM Atrial Rate : 078 BPM P-R Int : 172 ms QRS Dur : 068 ms QT Int : 388 ms P-R-T Axes : 063 -24 069 degrees QTc Int : 442 ms Normal sinus rhythm Possible Anterior infarct , age undetermined Abnormal ECG When compared with ECG of 14-SEP-2020 08:28, No significant change was found Confirmed by Bernardo Suarez ([id number]) on 04/15/2021 5:33:40 AM Referred By: Confirmed By:Bernardo Suarez
[2021-04-15 07:19] LABS: Estimated Average Glucose 166 mg/dl; Hemoglobin A1C 7.4 % (4.5-5.6)
== END 2021-04-14 14:35 | disposition home or self-care (01) ==
LOC: ED 13:38 → EDINP 13:38 → 2S 21:45

== ENCOUNTER 2022-10-16 18:20 | Inpatient (IN) ==
--- NOTE | 2022-10-16 18:35 | Emergency Department Note ---
Impression & Plan Weakness, Anemia, Hyponatremia, Acute hip pain ED Provider Note NAME: EZ COBB AGE: 82 SEX: F : 1940 ARRIVES VIA: Walk-In INFORMANT: Patient, ED PROVIDER(S): Carlos Shafer MD CHIEF COMPLAINT: Weakness MEDICAL DECISION MAKING: The patient was seen due to concern for confusion. CT of the head obtained along with IV and blood work x-rays completed of the right hip and pelvis. Patient was ordered IV fluids. Patient has a normal white count mild anemia hemoglobin 1.4. Platelet count is unremarkable. Kidney function is unremarkable. Mild hyponatremia 135. Prerenal azotemia noted but the patient did receive IV fluids. TSH normal. COVID-negative. CT head cervical spine negative. Plain x-rays by my read did not show any overt findings. I did speak with the on-call hospital service Dr. Keller patient was admitted to the medicine service Prior /Outside records reviewed: Reviewed a primary care visit from Sandra Whitaker in October 2022. Known history of dementia history of falling cognitive impairment hypertension hyperlipidemia. Differential diagnosis: Infection, dehydration, metabolic abnormality, hypo/hyperglycemia, electrolyte disturbance, anemia, hypoxia, cardiac sources, intracerebral event, toxicologic, neurologic, as well as other pathologies. Diagnostics, as interpreted by me: ECG: Normal sinus rhythm, rate of 81, normal intervals, normal axis no ST elevations. Cardiac monitoring: An order was placed for continuous cardiac monitoring. The monitor shows a rate of 78 with sinus rhythm. Patient was placed on pulse oximetry Medical decision rules: None Imaging studies: See below I informally reviewed the patient's noncontrast CT of the head which showed no obvious ICH. I informally reviewed the patient's right hip and pelvis x-ray which shows no obvious fracture or dislocation. HPI: Patient presents due to concern for right-sided facial droop. Family initially had had this happen 1 time before but has been been persistent since Thursday. The patient of note was outside for period of time but this had not yet resolved. Family states that the patient had been lethargic and confused not acting quite herself. Patient reportedly may have had a fall in the kitchen after an episode of weakness and was complaining some right-sided leg and hip discomfort. Patient currently does live with son and grandson. No reported urinary symptoms cough or fever. The patient does not take anything for pain prior to arrival. The patient does use a walker assist device at home unsure as to whether or not the patient struck her head. PAST MEDICAL HISTORY: See Below PAST SURGICAL HISTORY: See Below SOCIAL HISTORY: See Below HOME MEDICATIONS: See Below ALLERGIES: See Below VITALS: See Below PHYSICAL EXAMINATION: GENERAL: NAD, non-toxic. EYE EXAM: Normal conjunctiva. PERRL, no anisocoria and EOM's grossly intact w/o pain. NECK: Supple, no nuchal rigidity, no adenopathy, non-tender. No signs of meningismus. FROM of the neck with good chin to chest and neck extension. No stridor. LUNGS: Clear to auscultation. Normal chest wall mechanics. HEART: NSR, no MRG. ABDOMEN: Abdomen soft, non-tender, no masses, no rebound or guarding. BACK: No CVA TTP. SKIN: No rashes and no bruising. UPPER EXTREMITIES: Upper extremities are grossly normal. Mild discomfort to right shoulder with passive range of motion the patient can keep the arm at the level that it is raised. LOWER EXTREMITIES: Right-sided thigh and hip discomfort without obvious deformity. 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 Grandmother (Maternal) Diabetes Denies family history of Ovarian cancer Prostate cancer Myocardial infarction Breast cancer Social History Smoking Status: Never smoker Second Hand Exposure: Yes; Do You Dip or Chew Tobacco: No; Hx Alcohol Use: No Hx Substance Use: No Preferred Language: Occitan Communication Ability: Effective Exhaust Tender Required: No Beliefs That Will Affect Care: None marital status: / Current Living Situation: Family Current Living Situation Comment: lives with son current occupational status: retired Feels Safe at Home: Yes Safety Concerns: Feels Safe At This Time caffeine: Yes Dental Care, Regularly: Yes Seatbelt Use: always Sunscreen Use: Yes Assistive Devices: Walker Allergies Allergies Allergy/AdvReac Type Severity Reaction Status Date / Time nickel Allergy Intermediate Rash Verified 10/16/22 20:05 Home Meds Home Medications Medication Instructions Recorded Confirmed cholecalciferol (vitamin D3) 50 50 mcg PO DAILY 10/16/22 10/16/22 mcg (2,000 unit) tablet Previous Rx's Medication Instructions Recorded aspirin 81 mg tablet,delayed 81 mg PO DAILY #0 tabs 12/16/21 release simvastatin 20 mg tablet 20 mg PO HS #90 tabs 12/16/21 losartan 50 mg tablet 50 mg PO DAILY #90 tabs 08/26/22 metformin 1,000 mg tablet 1,000 mg PO DAILY #90 tabs 10/13/22 Results & Data (ED) Vital Signs Vital Signs - 24 hr 10/16/22 18:22 Temperature 36.8 C Temperature Source Temporal Artery Scan Pulse Rate 83 Respiratory Rate 18 Respiratory Effort / Characteristics Non-Labored Respiratory Depth Normal Blood Pressure 163/76 H Blood Pressure Mean 105 Pulse Oximetry 98 Oxygen Delivery Method Room Air Sepsis Recent Fever Within 48 Hours No Sepsis New/Unexplained Change in Mental Status No Sepsis Action Taken by Nursing No Action Required Home Medications Current Medication List: was personally reviewed by me Laboratory Data Attestation: I reviewed the patient's lab results. 10/19/22 08:20 10/21/22 08:39 Lab Results 10/16/22 10/16/22 10/16/22 Range/Units 18:44 18:44 18:44 WBC 8.10 (4.8-10.8) K/ul RBC 3.78 L (4.20-5.40) M/uL Hgb 11.4 L (12.0-16.0) g/dl Hct 33.6 L (37.0-47.0) % MCV 88.9 (80.0-100.0) fL MCH 30.2 (25.0-34.0) pg MCHC 33.9 (32.0-36.0) g/dL RDW Std Deviation 40.8 (36.4-46.3) fL RDW Coeff of Nisha 12.6 (11.5-14.5) % Plt Count 278 (130-400) K/uL MPV 10.9 (9.4-12.4) fL Immature Gran % (Auto) 0.4 % Neut % (Auto) 63.2 % Lymph % (Auto) 24.8 % [place] % (Auto) 9.1 % Eos % (Auto) 2.0 % Baso % (Auto) 0.5 % Neut # (Auto) 5.12 (1.40-6.50) K/uL Lymph # (Auto) 2.01 (1.2-3.4) K/uL [place] # (Auto) 0.74 H (0.11-0.59) K/uL Eos # (Auto) 0.16 (0-0.50) K/uL Baso # (Auto) 0.04 (0-0.2) K/uL Immature Gran # (Auto) 0.03 (0.01-0.20) K/uL PT 11.2 (9.0-12.0) Seconds INR 1.0 (0.9-1.1) Sodium 135 L (136-145) mmol/L Potassium 3.9 (3.5-5.1) mmol/L Chloride 99 (98-107) mmol/L Carbon Dioxide 27 (21-32) mmol/L Anion Gap 9 (3-11) BUN 20 (6-23) mg/dl Creatinine 0.83 (0.6-1.2) mg/dl Est Cr Clr Drug Dosing Not Reportable Est GFR ( Amer) 77.2 ml/min Est GFR (Non-Af Amer) 66.6 ml/min BUN/Creatinine Ratio 24.1 H (10-20) Glucose 161 H (70-99(Fasting)) mg/dl Calcium 10.0 (8.6-10.3) mg/dl Magnesium 1.7 (1.7-2.4) mg/dl Total Bilirubin 0.6 (0.2-1.0) mg/dl AST 17 (13-39) U/L ALT 10 (7-52) U/L Alkaline Phosphatase 63 (34-104) U/L Total Protein 7.8 (6.0-8.3) gm/dl Albumin 4.3 (3.4-5.0) gm/dl Globulin 3.5 (2.5-4.0) gm/dl Albumin/Globulin Ratio 1.2 (0.9-2) TSH (0.300-4.500) uIu/ml SARS-CoV-2, RNA, NAAT (NEGATIVE) 10/16/22 10/16/22 Range/Units 18:44 19:15 WBC (4.8-10.8) K/ul RBC (4.20-5.40) M/uL Hgb (12.0-16.0) g/dl Hct (37.0-47.0) % MCV (80.0-100.0) fL MCH (25.0-34.0) pg MCHC (32.0-36.0) g/dL RDW Std Deviation (36.4-46.3) fL RDW Coeff of Nisha (11.5-14.5) % Plt Count (130-400) K/uL MPV (9.4-12.4) fL Immature Gran % (Auto) % Neut % (Auto) % Lymph % (Auto) % [place] % (Auto) % Eos % (Auto) % Baso % (Auto) % Neut # (Auto) (1.40-6.50) K/uL Lymph # (Auto) (1.2-3.4) K/uL [place] # (Auto) (0.11-0.59) K/uL Eos # (Auto) (0-0.50) K/uL Baso # (Auto) (0-0.2) K/uL Immature Gran # (Auto) (0.01-0.20) K/uL PT (9.0-12.0) Seconds INR (0.9-1.1) Sodium (136-145) mmol/L Potassium (3.5-5.1) mmol/L Chloride (98-107) mmol/L Carbon Dioxide (21-32) mmol/L Anion Gap (3-11) BUN (6-23) mg/dl Creatinine (0.6-1.2) mg/dl Est Cr Clr Drug Dosing Est GFR ( Amer) ml/min Est GFR (Non-Af Amer) ml/min BUN/Creatinine Ratio (10-20) Glucose (70-99(Fasting)) mg/dl Calcium (8.6-10.3) mg/dl Magnesium (1.7-2.4) mg/dl Total Bilirubin (0.2-1.0) mg/dl AST (13-39) U/L ALT (7-52) U/L Alkaline Phosphatase (34-104) U/L Total Protein (6.0-8.3) gm/dl Albumin (3.4-5.0) gm/dl Globulin (2.5-4.0) gm/dl Albumin/Globulin Ratio (0.9-2) TSH 2.177 (0.300-4.500) uIu/ml SARS-CoV-2, RNA, NAAT NEGATIVE (NEGATIVE) Administered Medications Acetaminophen (Acetaminophen 325 Mg Tab) 650 mg PO Q4H PRN PRN Reason: Pain or Fever Stop: 11/15/22 23:37 Last Admin: 10/21/22 04:52 Dose: 650 mg Documented By: Admin: 10/17/22 14:50 Dose: 650 mg Documented By: ABDIRIZAK Aspirin (Aspirin 81 Mg Ectab) 81 mg PO DAILY [facility] Stop: 11/16/22 08:59 Last Admin: 10/21/22 08:38 Dose: 81 mg Documented By: Admin: 10/20/22 10:28 Dose: 81 mg Documented By: Admin: 10/19/22 09:27 Dose: 81 mg Documented By: Admin: 10/18/22 08:58 Dose: 81 mg Documented By: Admin: 10/17/22 08:52 Dose: 81 mg Documented By: ABDIRIZAK Atorvastatin Calcium (Atorvastatin 40 Mg Tab) 40 mg PO DAILY [facility] Stop: 11/19/22 08:59 Last Admin: 10/21/22 08:38 Dose: 40 mg Documented By: Admin: 10/20/22 10:28 Dose: 40 mg Documented By: ATA Clopidogrel Bisulfate (Clopidogrel Bisulfate 75 Mg Tab) [facility]: 11/16/22 08:59 Last Admin: 10/21/22 08:37 Dose: 75 mg Documented By: Admin: 10/20/22 10:28 Dose: 75 mg Documented By: Admin: 10/19/22 09:28 Dose: 75 mg Documented By: Admin: 10/18/22 08:55 Dose: 75 mg Documented By: Admin: 10/17/22 08:52 Dose: 75 mg Documented By: ABDIRIZAK Insulin Aspart (Insulin Aspart Per Unit Charge) 0 units SC ACHS JET Stop: 11/16/22 07:29 Last Admin: 10/21/22 08:37 Dose: 2 units Documented By: ATA Co-signed By: [id number] Admin: 10/20/22 20:26 Dose: 2 units Documented By: ENID Co-signed By: LUPILLO Admin: 10/20/22 17:24 Dose: 2 units Documented By: ATA Co-signed By: ALYSA Admin: 10/20/22 12:52 Dose: Not Given Documented By: Admin: 10/20/22 08:52 Dose: Not Given Documented By: Admin: 10/19/22 22:05 Dose: Not Given Documented By: CITLALLI Co-signed By: AILEEN Admin: 10/19/22 17:09 Dose: Not Given Documented By: Admin: 10/19/22 12:47 Dose: Not Given Documented By: Admin: 10/19/22 09:25 Dose: 2 units Documented By: GIANNI Co-signed By: MARGOT Admin: 10/18/22 21:18 Dose: 3 units Documented By: CITLALLI Co-signed By: MIGUEL ÁNGEL Admin: 10/18/22 18:04 Dose: 3 units Documented By: GIANNI Co-signed By: VERONIKA Admin: 10/18/22 12:59 Dose: 3 units Documented By: GIANNI Co-signed By: LADI Admin: 10/18/22 09:08 Dose: 3 units Documented By: GIANNI Co-signed By: VERONIKA Admin: 10/17/22 20:17 Dose: 3 units Documented By: CITLALLI Co-signed By: AILEEN Admin: 10/17/22 17:12 Dose: 2 units Documented By: ABDIRIZAK Co-signed By: ALYSA Admin: 10/17/22 12:20 Dose: Not Given Documented By: Admin: 10/17/22 08:29 Dose: Not Given Documented By: ABDIRIZAK Insulin Glargine (Lantus Per Unit Charge) 5 units SQ BID JET Stop: 11/16/22 08:59 Last Admin: 10/21/22 08:37 Dose: 5 units Documented By: ATA Co-signed By: [id number] Admin: 10/20/22 20:27 Dose: 5 units Documented By: ENID Co-signed By: LUPILLO Admin: 10/20/22 10:27 Dose: 5 units Documented By: ATA Co-signed By: [id number] Admin: 10/19/22 22:06 Dose: Not Given Documented By: Admin: 10/19/22 09:26 Dose: 5 units Documented By: GIANNI Co-signed By: MARGOT Admin: 10/18/22 21:17 Dose: 5 units Documented By: CITLALLI Co-signed By: MIGUEL ÁNGEL Admin: 10/18/22 09:07 Dose: 5 units Documented By: GIANNI Co-signed By: VERONIKA Admin: 10/17/22 20:17 Dose: 5 units Documented By: CITLALLI Co-signed By: AILEEN Admin: 10/17/22 09:29 Dose: Not Given Documented By: ABDIRIZAK Losartan Potassium (Losartan Potassium 50 Mg Tab) 50 mg PO DAILY JET Stop: 11/16/22 08:59 Last Admin: 10/21/22 08:38 Dose: 50 mg Documented By: Admin: 10/20/22 10:28 Dose: 50 mg Documented By: Admin: 10/19/22 09:27 Dose: 50 mg Documented By: Admin: 10/18/22 08:58 Dose: 50 mg Documented By: Admin: 10/17/22 08:52 Dose: 50 mg Documented By: ABDIRIZAK Metoprolol Tartrate (Metoprolol Tartrate 25 Mg Tab) 25 mg PO BID [facility] Stop: 11/19/22 20:59 Last Admin: 10/21/22 08:37 Dose: 25 mg Documented By: Admin: 10/20/22 20:26 Dose: 25 mg Documented By: ENID Vitamin D (Cholecalciferol 1,000 Units 25 Mcg Tab) 2,000 units PO DAILY JET Stop: 11/16/22 08:59 Last Admin: 10/21/22 08:38 Dose: 2,000 units Documented By: Admin: 10/20/22 10:28 Dose: 2,000 units Documented By: Admin: 10/19/22 09:27 Dose: 2,000 units Documented By: Admin: 10/18/22 08:57 Dose: 2,000 units Documented By: Admin: 10/17/22 08:52 Dose: 2,000 units Documented By: ABDIRIZAK Discontinued Medications Acetaminophen (Acetaminophen 500 Mg Tab) 1,000 mg PO NOW STA Stop: 10/16/22 20:23 Last Admin: 10/16/22 20:31 Dose: 1,000 mg Documented By: MAGDALENA Aspirin (Aspirin Chew 324 Mg) 324 mg PO NOW STA Stop: 10/16/22 20:24 Last Admin: 10/16/22 20:30 Dose: 324 mg Documented By: MAGDALENA Gadobutrol (Gadobutrol 65ml Vial) 5.5 ml IV ONCE ONE Stop: 10/17/22 09:25 Last Admin: 10/17/22 09:25 Dose: 5.5 ml Documented By: NATHAN Sodium Chloride (Nss 1000ml) 1,000 mls @ 999 mls/hr IV .Q1H1M JET Stop: 10/16/22 20:15 Last Infusion: 10/16/22 23:07 Dose: 0 mls/hr Documented By: Admin: 10/16/22 20:03 Dose: 999 mls/hr Documented By: MAGDALENA Methylprednisolone 40 mg/ (Syringe) 0.64 mls @ 1.5 mls/min IV Q8H [facility] Stop: 11/16/22 11:29 Last Admin: 10/18/22 14:36 Dose: Not Given Documented By: Admin: 10/18/22 03:55 Dose: 1.5 mls/min Documented By: Admin: 10/17/22 19:23 Dose: 1.5 mls/min Documented By: Admin: 10/17/22 12:33 Dose: 1.5 mls/min Documented By: ABDIRIZAK Methylprednisolone 40 mg/ (Syringe) 0.64 mls @ 1.5 mls/min IV Q12H [facility] Stop: 11/17/22 11:59 Last Admin: 10/19/22 12:47 Dose: Not Given Documented By: Admin: 10/19/22 00:32 Dose: 1.5 mls/min Documented By: Admin: 10/18/22 13:00 Dose: 1.5 mls/min Documented By: GIANNI Metoprolol Tartrate (Metoprolol Tartrate 25 Mg Tab) 25 mg PO BID JET Stop: 11/17/22 08:59 Last Admin: 10/19/22 09:28 Dose: 25 mg Documented By: Admin: 10/18/22 21:00 Dose: 25 mg Documented By: Admin: 10/18/22 10:31 Dose: 25 mg Documented By: GIANNI Metoprolol Tartrate (Metoprolol Tartrate 50 Mg Tab) 50 mg PO BID JET Stop: 11/18/22 20:59 Last Admin: 10/20/22 10:26 Dose: Not Given Documented By: Admin: 10/19/22 22:18 Dose: 50 mg Documented By: CITLALLI Metoprolol Tartrate (Metoprolol Tartrate 25 Mg Tab) 25 mg PO ONE ONE Stop: 10/19/22 10:16 Last Admin: 10/19/22 17:08 Dose: Not Given Documented By: GIANNI Miscellaneous (Patient's Height &/Or Weight Needed) 1 each N/A Q2H JET Stop: 11/16/22 00:14 Last Admin: 10/17/22 05:34 Dose: Not Given Documented By: Admin: 10/17/22 05:02 Dose: 1 each Documented By: Admin: 10/17/22 03:28 Dose: 1 each Documented By: CITLALLI Morphine Sulfate (Morphine Sulfate 2 Mg/Ml Carp) 2 mg IV NOW STA Stop: 10/16/22 20:23 Last Admin: 10/16/22 20:33 Dose: 2 mg Documented By: MAGDALENA Simvastatin (Simvastatin 20 Mg Tab) 20 mg PO HS JET Stop: 11/16/22 20:59 Last Admin: 10/18/22 21:01 Dose: 20 mg Documented By: Admin: 10/17/22 19:29 Dose: 20 mg Documented By: CITLALLI Imaging Data Radiologist's Impression: Chest X-Ray 10/16/22 19:07 XR chest 1V portable HISTORY: 82 years-old Female weakness acute weakness COMPARISON: 04/13/2021 TECHNIQUE: AP view of the chest FINDINGS: Cardiomediastinal and hilar silhouettes are unchanged. Mild right hemidiaphragmatic elevation. Atherosclerosis of the aorta. No pneumothorax, ple ural effusion, airspace consolidation or pulmonary edema. Bones appear grossly intact. IMPRESSION: No acute process. ACT 112: Negative or not required by law. The above report was generated using voice recognition software. It may contain grammatical, syntax or spelling errors. Electronically signed by: Blaine Sherman M.D. 10/17/2022 7:[address] 10/16/22 19:07 Exam(s): CT HEAD Without Contrast EXAM: CT Head Without Intravenous Contrast CLINICAL HISTORY: Reason for exam: R sided weakness. TECHNIQUE: Axial computed tomography images of the head/brain without intravenous contrast. CTDI is 37.87 mGy and DLP is 702.46 mGy-cm. Automated exposure control was utilized for the study. A dose lowering technique was utilized adhering to the principles of ALARA. COMPARISON: 04/13/21 FINDINGS: Brain: Age-related parenchymal volume loss. Mild chronic small vessel ischemic change. Chronic lacunar infarct left internal capsule. Dilated perivascular space left sublenticular region. No hemorrhage, mass-effect, or parenchymal edema. Hightower-white matter differentiation maintained. Ventricles: Unremarkable. No hydrocephalus. Bones/joints: Unremarkable. No acute fracture. Soft tissues: Unremarkable. Vasculature: Intracranial atherosclerosis. Sinuses: Unremarkable as visualized. No acute sinusitis. Mastoid air cells: Unremarkable as visualized. No mastoid effusion. Orbits: Bilateral lens replacements. IMPRESSION: No acute intracranial process. Electronically signed by: Martha Johnson M.D. 10/16/22 19:[address] 10/16/22 19:08 Exam(s): CT C SPINE EXAM: CT Cervical Spine Without Intravenous Contrast CLINICAL HISTORY: Reason for exam: fall. TECHNIQUE: Axial computed tomography images of the cervical spine without intravenous contrast. CTDI is 24.58 mGy and DLP is 458.04 mGy-cm. Automated exposure control was utilized for the study. A dose lowering technique was utilized adhering to the principles of ALARA. COMPARISON: 09/11/20 FINDINGS: Vertebral body height and alignment are maintained. There is no acute fracture or or traumatic subluxation. Disc heights are maintained. There are posterior disc-osteophyte complexes at C4-C5 and C5-C6 producing mild central spinal canal stenosis. There is mild bilateral facet degeneration, greatest at the C7-T1 level. There is no significant foraminal narrowing within the cervical spine. There is no prevertebral soft tissue swelling. Lung apices are clear. IMPRESSION: No acute osseous findings. Electronically signed by: Martha Johnson M.D. 10/16/22 19:49 PM Hip/Pelvis X-Ray 10/16/22 19:08 XR hip RT 2V w pelvis HISTORY: 82 years-old Female hip/femur pain . Pain without reported trauma COMPARISON: 09/12/2020, 09/11/2020 TECHNIQUE: AP view of the pelvis with 2 views of the left hip FINDINGS: Demineralized appearance to the bones. Mild to moderate osteoarthritis of the right hip. Left hip arthroplasty. Calcified uterine fibroid. No acute fracture, dislocation or avascular necrosis identified. IMPRESSION: No acute fracture or dislocation is identified. ACT 112: Negative or not required by law. The above report was generated using voice recognition software. It may contain grammatical, syntax or spelling errors. Electronically signed by: Blaine Sherman M.D. 10/17/2022 7:34 AM Discharge Plan Visit Data Chief Complaint: Confusion Stated Complaint: CONFUSION ED Provider: Carlos Shafer Discharge Problem: Weakness, Anemia, Hyponatremia, Acute hip pain Patient Disposition: Admitted As Inpatient Discharge Instructions Interventions: ED Discharge Assessment Last Done: 10/16/22 23:08
[2022-10-16] MEDS ORDERED: SODIUM CHLORIDE 0.9% 1000ML 1,000 ML IV SCH (19:15)
[2022-10-16 19:22] LABS: Basophils # (auto) 0.04 K/uL (0-0.2); Basophils % (auto) 0.5 %; Eosinophils # (auto) 0.16 K/uL (0-0.50); Hematocrit (blood only) 33.6 % (37.0-47.0); Hemoglobin 11.4 g/dl (12.0-16.0); Immature Granulocytes # (auto) 0.03 K/uL (0.01-0.20); Immature Granulocytes % (auto) 0.4 %; Lymphocytes # (auto) 2.01 K/uL (1.2-3.4); Lymphocytes % (auto) 24.8 %; Mean Corpuscular Hemoglobin 30.2 pg (25.0-34.0); Mean Corpuscular Hgb Conc 33.9 g/dL (32.0-36.0); Mean Corpuscular Volume 88.9 fL (80.0-100.0); Mean Platelet Volume 10.9 fL (9.4-12.4); Monocytes # (auto) 0.74 K/uL (0.11-0.59); Monocytes % (auto) 9.1 %; Neutrophils # (auto) 5.12 K/uL (1.40-6.50); Neutrophils % (auto) 63.2 %; Platelet Count 278 K/uL (130-400); RDW Coefficient of Variation 12.6 % (11.5-14.5); RDW Standard Deviation 40.8 fL (36.4-46.3); Red Blood Count 3.78 M/uL (4.20-5.40)
[2022-10-16 19:29] LABS: Alanine Aminotransferase 10 U/L (7-52); Albumin Globulin Ratio 1.2 (0.9-2); Albumin Level 4.3 gm/dl (3.4-5.0); Alkaline Phosphatase 63 U/L (34-104); Anion Gap 9 (3-11); Aspartate Aminotransferase 17 U/L (13-39); BUN Creatinine Ratio 24.1 (10-20); Bilirubin,Total 0.6 mg/dl (0.2-1.0); Blood Urea Nitrogen 20 mg/dl (6-23); Carbon Dioxide 27 mmol/L (21-32); Chloride 99 mmol/L (98-107); Est GFR (African American) 77.2 ml/min; Est GFR (Non-African American) 66.6 ml/min; Globulin 3.5 gm/dl (2.5-4.0); Glucose 161 mg/dl (70-99(Fasting)); Magnesium 1.7 mg/dl (1.7-2.4); Potassium 3.9 mmol/L (3.5-5.1); Sodium 135 mmol/L (136-145); Total Protein 7.8 gm/dl (6.0-8.3)
--- NOTE | 2022-10-16 19:49 | CT Scan Report ---
Exam(s): CT C SPINE EXAM: CT Cervical Spine Without Intravenous Contrast CLINICAL HISTORY: Reason for exam: fall. TECHNIQUE: Axial computed tomography images of the cervical spine without intravenous contrast. CTDI is 24.58 mGy and DLP is 458.04 mGy-cm. Automated exposure control was utilized for the study. A dose lowering technique was utilized adhering to the principles of ALARA. COMPARISON: 09/11/20 FINDINGS: Vertebral body height and alignment are maintained. There is no acute fracture or or traumatic subluxation. Disc heights are maintained. There are posterior disc-osteophyte complexes at C4-C5 and C5-C6 producing mild central spinal canal stenosis. There is mild bilateral facet degeneration, greatest at the C7-T1 level. There is no significant foraminal narrowing within the cervical spine. There is no prevertebral soft tissue swelling. Lung apices are clear. IMPRESSION: No acute osseous findings. Electronically signed by: Martha Johnson M.D. 10/16/22 19:49 PM
--- NOTE | 2022-10-16 19:51 | CT Scan Report ---
Exam(s): CT HEAD Without Contrast EXAM: CT Head Without Intravenous Contrast CLINICAL HISTORY: Reason for exam: R sided weakness. TECHNIQUE: Axial computed tomography images of the head/brain without intravenous contrast. CTDI is 37.87 mGy and DLP is 702.46 mGy-cm. Automated exposure control was utilized for the study. A dose lowering technique was utilized adhering to the principles of ALARA. COMPARISON: 04/13/21 FINDINGS: Brain: Age-related parenchymal volume loss. Mild chronic small vessel ischemic change. Chronic lacunar infarct left internal capsule. Dilated perivascular space left sublenticular region. No hemorrhage, mass-effect, or parenchymal edema. Hightower-white matter differentiation maintained. Ventricles: Unremarkable. No hydrocephalus. Bones/joints: Unremarkable. No acute fracture. Soft tissues: Unremarkable. Vasculature: Intracranial atherosclerosis. Sinuses: Unremarkable as visualized. No acute sinusitis. Mastoid air cells: Unremarkable as visualized. No mastoid effusion. Orbits: Bilateral lens replacements. IMPRESSION: No acute intracranial process. Electronically signed by: Martha Johnson M.D. 10/16/22 19:50 PM
[2022-10-16 19:55] LABS: Prothrombin Time 11.2 Seconds (9.0-12.0)
[2022-10-16] MEDS ORDERED: ACETAMINOPHEN 500 MG TAB PO STA (20:22)
[2022-10-16] MEDS ORDERED: MoRPHine SULFATE 2 MG/ML CARP IV STA (20:22)
[2022-10-16] MEDS ORDERED: ASPIRIN CHEW 324 MG PO STA (20:23)
--- NOTE | 2022-10-16 20:38 | History & Physical Report ---
Date of Service October 16, 2022 Assessment & Plan (1) History of TIA (transient ischemic attack): Plan: New Neurological Symptoms- Concern for Stroke - right sided flattening in nasolabial fold with decreased strength right upper extremity - Symptoms x 1 week past tpa window - head/neck CTA from 04/2021 - s/p 324 aspirin in ED - continue aspirin 81 mg, will add Plavix - already on statin - consulted neurology - TTE with bubble study - MRI brain Dementia - baseline history of dementia likely secondary to vascular disease Right Hip Pain - Radiology read on XR pending - Tylenol prn for pain HTN - continue home losartan - out of the window for permissive HTN DM2 - Hold metformin - SSI with basal/bolus coverage while IP - most recent a1c= 8.8 10/13/2022 HLD - continue simvastatin - lipid panel from 10/13/2022 Vitamin D Definity - continue supplementation VTE Prophylaxis: SCD; defer pharmacologic pending MRI Dispo: Med- surg with Tele Diet: Regular pending dysphagia screening (2) Dementia: (3) Osteoporosis: (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 1 week ago she was sitting on her porch outside in the heat. She became lethargic and family took her inside. Since then family has noted that she has been confused, not acting like herself, left eye has been drooping and has been having trouble walking. She was seen by her PCP on 10/13 for an AWV. Documentation from that visit reviewed and the recent episode of weakness that improved with sitting inside in the cool. Grandson is at bedside with her. He states that she had a fall in the kitchen after this episode of weakness and has been complaining of right sided hip pain. Has continue weakness and confusion. Lives with son and grandson in 2 story house. Her bedroom, bathroom and kitchen are on the second story. Spoke with son, Gautam, who is in the process of becoming her POA. ED work-up significant for: Head CT without acute intracranial process, CT cervical spine without acute findings. CXR, XR Hip/Pelvis without acute process per my review. Radiology read still pending. Allergies Allergy/AdvReac Type Severity Reaction Status Date / Time nickel Allergy Intermediate Rash Verified 10/16/22 20:05 Home Medications Medication Instructions Recorded Confirmed Type aspirin 81 mg tablet,delayed 81 mg PO DAILY #0 tabs 12/16/21 10/16/22 Rx release simvastatin 20 mg tablet 20 mg PO HS #90 tabs 12/16/21 10/16/22 Rx losartan 50 mg tablet 50 mg PO DAILY #90 tabs 08/26/22 10/16/22 Rx metformin 1,000 mg tablet 1,000 mg PO DAILY #90 tabs 10/13/22 10/16/22 Rx cholecalciferol (vitamin D3) 50 50 mcg PO DAILY 10/16/22 10/16/22 History mcg (2,000 unit) tablet Past Med/Surg History Medical History Bilateral leg edema Exposure to COVID-19 virus History of TIA (transient ischemic attack) Hx of basal cell carcinoma Hx of diabetic retinopathy Hypercholesterolemia Hypertension Iliotibial band syndrome Left groin pain Osteoporosis 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 Grandmother (Maternal) Diabetes Denies family history of Ovarian cancer Prostate cancer Myocardial infarction Breast cancer Social History Smoking Status: Never smoker Second Hand Exposure: Yes; Do You Dip or Chew Tobacco: No; Hx Alcohol Use: No Hx Substance Use: No Preferred Language: Puerto Rican Communication Ability: Effective Fingerprint Expert Required: No Beliefs That Will Affect Care: None marital status: / Current Living Situation: Alone Current Living Situation Comment: lives with son current occupational status: retired Feels Safe at Home: Yes caffeine: Yes Dental Care, Regularly: Yes Seatbelt Use: always Sunscreen Use: Yes Assistive Devices: Walker Review of Systems Review of Systems: As per above Physical Exam Physical Exam: Constitutional: well-appearing, no acute distress HEENT: NCAT, no conjunctival injection CV: regular rhythm, no murmur appreciated, extremities well-perfused, no LE edema Resp: CTABL, no wheezes/rales/rhonchi appreciated, no increased work of breathing GI: soft, nondistended, nontender MSK: no gross deformities appreciated Skin: warm, dry, no rash appreciated Neurologic: CN's II-XI intact bilaterally (flattening nasolabial fold right side ) and moves all extremities Cranial Nerves: PERRL, EOM intact bilaterally, tongue midline, normal hearing and able to elevate shoulders bilaterally decreased mold worker strength right side compared to left. 4/5 strength LE B/L Results & Data Results & Data Vital Signs (Past 12 Hours) Vital Signs Temp Pulse Pulse Resp BP BP Pulse Ox 10/16/22 18:45 76 20 165/83 H 98 10/16/22 18:45 10/16/22 18:38 79 10/16/22 18:22 36.8 C 83 18 163/76 H 98 O2 Del Method 10/16/22 18:45 Room Air 10/16/22 18:45 Room Air 10/16/22 18:38 10/16/22 18:22 Room Air Supervising Physician Co-Signing Physician Notes Patient seen and examined, chart reviewed, case discussed with Dr. Sousa and I agree with the assessment and plan as above. In brief, patient is an 82yo female with history of HTN, HLP, DM and TIA in 2021 presenting with one week of confusion, ambulatory dysfunction, right facial droop and right sided weakness. Patient has had a fall, has had increased difficulty with ambulation. In the ER she is afebrile, hypertensive Patient does not provide details of history of events - grandson is at bedside Gen- non-toxic in appearance Skin - intact, no rash HEENT- NC/AT, mmm, Neck supple Heart - +S1/S2, regular Lungs - CTA Abd - +BS, soft, NT/ND Ext - warm, well perfused Neuro - patient oriented to self and location, mild flattening of RIGHT nasolabial fold. Mild weakness of RUE with mold worker strength. Mild RUE drift - possibly secondary to pain/discomfort in right shoulder, mild weakness of RLE. Difficult exam Labs and images reviewed Assessment/Plan: 82yo female with HTN, HLP, DM and prior TIA presenting with one week of confusion, right sided weakness, ambulatory dysfunction. Concerning for poss ible CVA -MRI, Echo -DAPT with ASA and Plavix -Continue Statin -Neuro consultation -Remainder as above Resident Activity Tracking Resident Involvement: Resident Care Provided Care Provided: Adult Hospital Medicine
[2022-10-16] MEDS ORDERED: GLUCAGON FOR INJ 1 MG VIAL SQ PRN (23:38)
[2022-10-16] MEDS ORDERED: GLUCOSE 40% GEL 15 GM TUBE PO PRN (23:38)
[2022-10-16] MEDS ORDERED: PHARMACIST DISCHARGE MED REC CONSULT PRN (23:38)
[2022-10-16] MEDS ORDERED: GLUCOSE 10 TAB/TUBE PO PRN (23:38)
[2022-10-16] MEDS ORDERED: DEXTROSE 50% 50 ML SYRINGE IV PRN (23:38)
--- NOTE | 2022-10-17 00:17 | Billing Data ---
Date of Service October 16, 2022 Coding Level of Care Code 86223 INT INP/OBS CARE
[2022-10-17 03:28] LABS: Appearance Urine Clear (Clear); Bilirubin Urine Negative (Negative); Blood Urine Negative (Negative); Color Urine Yellow; Glucose Urine UA Negative (Negative); Ketones Urine Trace (Negative); Leukocyte Esterase Urine Negative (Negative); Nitrite Urine Negative (Negative); Protein Urine Negative (Negative); Specific Gravity Urine 1.011 (1.000-1.030); Urobilinogen Urine Negative (Negative)
[2022-10-17] MEDS: Patient's HEIGHT &/or WEIGHT Needed SCH ×3 (03:28→05:34)
[2022-10-17 06:29] LABS: Basophils # (auto) 0.04 K/uL (0-0.2); Basophils % (auto) 0.5 %; Eosinophils # (auto) 0.18 K/uL (0-0.50); Eosinophils % (auto) 2.5 %; Hematocrit (blood only) 30.6 % (37.0-47.0); Hemoglobin 10.3 g/dl (12.0-16.0); Immature Granulocytes # (auto) 0.03 K/uL (0.01-0.20); Immature Granulocytes % (auto) 0.4 %; Lymphocytes # (auto) 1.96 K/uL (1.2-3.4); Lymphocytes % (auto) 26.7 %; Mean Corpuscular Hemoglobin 29.6 pg (25.0-34.0); Mean Corpuscular Hgb Conc 33.7 g/dL (32.0-36.0); Mean Corpuscular Volume 87.9 fL (80.0-100.0); Monocytes # (auto) 0.66 K/uL (0.11-0.59); Neutrophils # (auto) 4.46 K/uL (1.40-6.50); Neutrophils % (auto) 60.9 %; Platelet Count 235 K/uL (130-400); RDW Coefficient of Variation 12.6 % (11.5-14.5); RDW Standard Deviation 40.4 fL (36.4-46.3); Red Blood Count 3.48 M/uL (4.20-5.40); White Blood Count 7.33 K/ul (4.8-10.8)
[2022-10-17 06:38] LABS: BUN Creatinine Ratio 23.2 (10-20); Calcium 8.7 mg/dl (8.6-10.3); Creatinine Clr Calc Pharmacy 51.4 ml/min; Est GFR (African American) 95.3 ml/min; Est GFR (Non-African American) 82.2 ml/min; Potassium 3.8 mmol/L (3.5-5.1)
--- NOTE | 2022-10-17 07:35 | XRay Report ---
XR hip RT 2V w pelvis HISTORY: 82 years-old Female hip/femur pain . Pain without reported trauma COMPARISON: 09/12/2020, 09/11/2020 TECHNIQUE: AP view of the pelvis with 2 views of the left hip FINDINGS: Demineralized appearance to the bones. Mild to moderate osteoarthritis of the right hip. Left hip art hroplasty. Calcified uterine fibroid. No acute fracture, dislocation or avascular necrosis identified . IMPRESSION: No acute fracture or dislocation is identified. ACT 112: Negative or not required by law. The above report was generated using voice recognition software. It may contain grammatical, syntax o r spelling errors. Electronically signed by: Blaine Sherman M.D. 10/17/2022 7:34 AM
--- NOTE | 2022-10-17 07:38 | XRay Report ---
XR chest 1V portable HISTORY: 82 years-old Female weakness acute weakness COMPARISON: 04/13/2021 TECHNIQUE: AP view of the chest FINDINGS: Cardiomediastinal and hilar silhouettes are unchanged. Mild right hemidiaphragmatic elevation. Athero sclerosis of the aorta. No pneumothorax, pleural effusion, airspace consolidation or pulmonary edema. Bones appear grossly intact. IMPRESSION: No acute process. ACT 112: Negative or not required by law. The above report was generated using voice recognition software. It may contain grammatical, syntax o r spelling errors. Electronically signed by: Blaine Sherman M.D. 10/17/2022 7:36 AM
[2022-10-17] MEDS: INSULIN ASPART PER UNIT CHARGE SC SCH ×4 (08:29→20:17)
[2022-10-17] MEDS: CHOLECALCIFEROL 1,000 UNITS 25 MCG TAB PO SCH (08:52)
[2022-10-17] MEDS: LOSARTAN POTASSIUM 50 MG TAB PO SCH (08:52)
[2022-10-17] MEDS: ASPIRIN 81 MG ECTAB PO SCH (08:52)
[2022-10-17] MEDS: CLOPIDOGREL BISULFATE 75 MG TAB PO SCH (08:52)
--- NOTE | 2022-10-17 09:03 | Neurology Consultation ---
Date of Consultation October 17, 2022 Assessment & Plan (1) Stroke-like symptoms: R arm weakness in an 82 yo F with dementia and poorly controlled DM. Reviewing her CT head, it is certainly possible her R arm weakness which is the most prominent feature on exam is secondary to ischemic stroke. Agree with MRI as o rdered. However, given the complaint of R wrist pain, would evaluate further for orthopaedic causes. In the meantime, aspirin 81mg daily and plavix 75mg daily are appropriate for secondary stroke prevention. Would switch simvastatin to high intensity statin. -- Aspirin 81mg daily and plavix 75mg daily for 21 days, then aspirin monotherapy -- Switch simvastatin to lipitor 40mg daily -- MRI brain pending -- Therapy evals -- We will follow for MRI results. Telehealth Consultation Telehealth Information Telehealth Information: I performed this visit using a real-time telehealth connection between my location and the patients location ([facility]). After connecting through interactive tele-video, patient was identified by name and date of and/or wristband check.Patient (or authorized healthcare special service representative) was informed that this was a telemedicine visit and it was being conducted confidentially over secure lines. My office door was closed and no one else was present in the room with me.Patient (or authorized healthcare special service representative) provided consent to proceed with the visit, expressed an understanding of privacy and security of the telemedicine visit, and gave permission to have a hospital special service representative in the room in order to assist with the visit and to conduct portions of the visit, as needed. I informed the patient (or authorized healthcare special service representative) that I reviewed their record and presented the opportunity for them to ask any questions regarding the visit today. The patient agreed to participate. History of Present Illness Reason for Consultation: R arm weakness Requesting Physician: Dr. Short Attending Physician: Gautam Short MD History of Present Illness Parisa Lara is an 82 yo F with dementia presenting with a week of increased confusion and gait instability. The patient is unsure if she fell recently and reports using a walker at home for ambulation. She denies any complaints at this time and is unsure why family soraida her to the hospital. Per admission notes these symptoms began after sitting outside in the heat and have persisted. Reviewing prior neurology notes she has a history of TIA with a negative MRI of the brain in Apr. She has been taking aspirin and simvastatin at home for stroke prevention. Allergies Allergy/AdvReac Type Severity Reaction Status Date / Time nickel Allergy Intermediate Rash Verified 10/16/22 20:05 Home Medications Medication Instructions Recorded Confirmed Type aspirin 81 mg tablet,delayed 81 mg PO DAILY #0 tabs 12/16/21 10/16/22 Rx release simvastatin 20 mg tablet 20 mg PO HS #90 tabs 12/16/21 10/16/22 Rx losartan 50 mg tablet 50 mg PO DAILY #90 tabs 08/26/22 10/16/22 Rx metformin 1,000 mg tablet 1,000 mg PO DAILY #90 tabs 10/13/22 10/16/22 Rx cholecalciferol (vitamin D3) 50 50 mcg PO DAILY 10/16/22 10/16/22 History mcg (2,000 unit) tablet Patient History Medical History Bilateral leg edema Exposure to COVID-19 virus History of TIA (transient ischemic attack) Hx of basal cell carcinoma Hx of diabetic retinopathy Hypercholesterolemia Hypertension Iliotibial band syndrome Left groin pain Osteoporosis 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 Grandmother (Maternal) Diabetes Denies family history of Ovarian cancer Prostate cancer Myocardial infarction Breast cancer Social History Smoking Status: Never smoker Second Hand Exposure: Yes; Do You Dip or Chew Tobacco: No; Hx Alcohol Use: No Hx Substance Use: No Preferred Language: Croatian Communication Ability: Effective Intensive Care Anaesthetist Required: No Beliefs That Will Affect Care: None marital status: / Current Living Situation: Family Current Living Situation Comment: lives with son current occupational status: retired Feels Safe at Home: Yes Safety Concerns: Feels Safe At This Time caffeine: Yes Dental Care, Regularly: Yes Seatbelt Use: always Sunscreen Use: Yes Assistive Devices: Glasses and Walker Review of Systems +R thumb/wrist pain Physical Exam Neurological Examination: Mental Status: Awake and alert. Oriented to person, place. Fluent. Comprehension intact. Affect appropriate. Cranial Nerves: II: Reads NIHSS cards, pupils 3/3 to 2/2, [place] grossly intact. III/IV/: Versions intact without nystagmus, no gaze preference. VII: Facial expression symmetric VIII: Hearing intact to voice IX/X: Palate elevates symmetrically XI: Shoulder shrug symmetric XII: Tongue midline Motor: Strength is reduced in the R upper and R LE with drift, specific difficulty with finger extension of the R hand. Full strength on the L. There were no abnormal movements. Coordination: Movements were non-ataxic Results & Data Vital Signs (Past 12 Hours) Vital Signs Temp Pulse Pulse Pulse Resp BP Pulse Ox 10/17/22 07:53 36.5 C 57 L 20 154/83 H 94 10/17/22 07:14 64 10/17/22 02:16 36.5 C 71 18 167/84 H 99 10/16/22 23:53 71 10/16/22 23:38 10/16/22 23:38 36.5 C 71 18 167/84 H 99 10/16/22 23:07 77 12 178/88 H 98 Pulse Ox O2 Del Method O2 Del Method 10/17/22 07:53 Room Air 10/17/22 07:14 10/17/22 02:16 Room Air 10/16/22 23:53 10/16/22 23:38 99 Room Air 10/16/22 23:38 Room Air 10/16/22 23:07 Room Air Laboratory Results Abnormal lab results 10/16/22 10/16/22 10/17/22 Range/Units 18:44 18:44 03:00 RBC 3.78 L (4.20-5.40) M/uL Hgb 11.4 L (12.0-16.0) g/dl Hct 33.6 L (37.0-47.0) % Prentiss # (Auto) 0.74 H (0.11-0.59) K/uL Sodium 135 L (136-145) mmol/L BUN/Creatinine Ratio 24.1 H (10-20) Glucose 161 H (70-99(Fasting)) mg/dl POC Glucose (70-99) mg/dl Urine Ketones Trace H (Negative) 10/17/22 10/17/22 10/17/22 Range/Units 05:33 05:33 07:38 RBC 3.48 L (4.20-5.40) M/uL Hgb 10.3 L (12.0-16.0) g/dl Hct 30.6 L (37.0-47.0) % Prentiss # (Auto) 0.66 H (0.11-0.59) K/uL Sodium (136-145) mmol/L BUN/Creatinine Ratio 23.2 H (10-20) Glucose 135 H (70-99(Fasting)) mg/dl POC Glucose 109 H (70-99) mg/dl Urine Ketones (Negative) Diagnostic Findings CT head - noted small vessel disease
--- NOTE | 2022-10-17 09:10 | XCELERA ---
[id number]
[2022-10-17] MEDS ORDERED: GADOBUTROL 65ML VIAL IV ONE (09:24)
[2022-10-17] MEDS: LANTUS PER UNIT CHARGE SQ SCH ×2 (09:29→20:17)
--- NOTE | 2022-10-17 09:51 | Magnetic Resonance Report ---
MR brain wo/w con HISTORY: 82 years-old Female Concern for stroke acute stroke like symptoms COMPARISON: Head CT 10/16/2022, brain MRI 04/14/2021 TECHNIQUE: Multiplanar multisequence MRI brain was obtained both with and without the use of IV contr ast FINDINGS: Mildly motion degraded exam. 1.1 cm acute left thalamic infarct with adjacent acute 1.1 cm left media l temporal lobe infarct on image 10 series 4. Both of these infarcts demonstrate increased T2/FLAIR s ignal. No acute or subacute territorial infarct, acute intracranial hemorrhage, midline shift, hydroc ephalus or abnormal extra-axial collection. Involutional changes with moderate T2/FLAIR hyperintense foci throughout the white matter again noted. Cerebral venous sinuses and major arterial flow voids appear patent. Skull, orbits and soft tissues a re unremarkable. Metopic suture. Prior bilateral lens repair. Mastoid air cells and paranasal sinuses are clear. No abnormal enhancement. Partially empty sella. IMPRESSION: 1. Small acute infarcts of the left thalamus and medial left temporal lobe measure up to 1.1 cm. 2. No acute intracranial hemorrhage or midline shift. 3. Involutional changes with chronic microvascular ischemic disease. 4. No abnormal enhancement. ACT 112: Negative or not required by law. The above report was generated using voice recognition software. It may contain grammatical, syntax o r spelling errors. Electronically signed by: Blaine Sherman M.D. 10/17/2022 9:50 AM
--- NOTE | 2022-10-17 12:10 | Electrocardiogram Report ---
Test Reason : Blood Pressure : / mmHG Vent. Rate : 081 BPM Atrial Rate : 250 BPM P-R Int : 164 ms QRS Dur : 066 ms QT Int : 358 ms P-R-T Axes : 083 -20 069 degrees QTc Int : 415 ms Sinus rhythm Confirmed by Rob Lacy [id number] on 10/17/2022 12:09:58 PM Referred By: REFERRED SELF Confirmed By:Jaiden Lacy
--- NOTE | 2022-10-17 12:24 | Hospitalist Progress Note ---
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 Cardiac echo was negative for any embolic source. Teleneurology consultation noted. She is now on low-dose aspirin and Plavix will continue for 21 days. Simvastatin has been switched to atorvastatin. OT PT and speech evaluations have been ordered. She likely will need rehab placement at discharge (2) Dementia: Plan: Supportive care. (3) Osteoporosis: Plan: Supportive care (4) Type 2 diabetes mellitus with microalbuminuria: Plan: ADA diet. Sliding scale insulin coverage. Continue current medical manage (5) Anemia: Plan: Chronic. No evidence of GI bleeding. Serial labs (6) Hypercholesterolemia: Plan: Simvastatin has been switched to a atorvastatin per neurology recommendations (7) Hypertension: Plan: Stable. Continue current medical manage (8) Tenosynovitis of right wrist: Plan: Parenteral Solu-Medrol. This should improve rapidly Plan Anticipate discharge to inpatient rehab within the next day or 2 Admission and Anticipated Discharge Date Admission Date: October 16, 2022 Subjective Alert and oriented. No distress. Brain MRI scan positive for ischemic embolic CVA involving left thalamus and left temporal lobe. She has minimal symptoms. She also has right wrist tenosynovitis. Neurology consultation noted. She is now on aspirin and Plavix. Several doses of parenteral Solu-Medrol will be administered for the right wrist tenosynovitis. It appears she will need rehab placement for a while. Currently medically stable. Review of Systems Review of Systems: Constitutional-no fever or chills ENT-no blurred vision, no double vision, no epistaxis, no sore throat Respiratory-no cough, no wheezing, no shortness of breath Cardiac-no palpitations, no chest pain, no syncope GI-no nausea, vomiting, diarrhea, melena, hematochezia -no urinary retention, no urinary incontinence, no dysuria, no hematuria Musculoskeletal-right wrist pain which has been present for several weeks Skin-no bruising, no rashes, no pruritus Neuro-no isolated weakness, no paresthesia Psych-no depression, no anxiety Physical Exam Physical Exam: General-alert and oriented x3, no fevers, no chills HEENT-head atraumatic and normocephalic, equal and reactive to light, extraocular muscles intact Neck-no lymphadenopathy or thyromegaly, trachea midline Chest-clear to auscultation percussion. No rales wheezing or rhonchi Cardiac-regular rate and rhythm, normal S1 and S2 Abdomen-normal bowel sounds, nontender, no hepatosplenomegaly Extremities-no cyanosis, clubbing, or edema Neuro-cranial nerves II through XII intact, abnormal right hand [id number], right wrist tenosynovitis Psych-normal affect, normal mood. Anxious however Results & Data Results & Data Vital Signs (Past 12 Hours) Vital Signs Temp Pulse Pulse Resp BP Pulse Ox O2 Del Method 10/17/22 11:28 36.8 C 76 18 163/63 H 96 Room Air 10/17/22 07:53 36.5 C 57 L 20 154/83 H 94 Room Air 10/17/22 07:14 64 10/17/22 02:16 36.5 C 71 18 167/84 H 99 Room Air Laboratory Results 10/17/22 05:33 10/17/22 05:33 PG Care Time/CCT Total # of Minutes Spent Total Time Spent with Patient: Total time spent is greater than 50% in coordination of care (as documented) at patient's floor/unit and/or counseling patient: Coding Level of Care Code 63264 SUB INP/OBS CARE 3/50MIN Diagnoses Stroke-like symptoms R29.90 Dementia F03.90 Osteoporosis M81.0 Type 2 diabetes mellitus with microalbuminuria E11.29; R80.9 Anemia D64.9 Hypercholesterolemia E78.00 Hypertension I10 Tenosynovitis of right wrist M65.9
[2022-10-17] MEDS: methylPREDNISolone 40 MG in SYRINGE 0 ML IV SCH ×2 (12:33→19:23)
--- NOTE | 2022-10-17 14:38 | Communication Note ---
Date of Service: October 17, 2022 Neurology Update: MRI reviewed, L sided temporal and thalamic stroke appear embolic rather than small vessel. Would add on event monitor at discharge to assess for PAF. Otherwise secondary stroke prevention strategy currently ordered is appropriate. Please contact us with any other questions.
[2022-10-17] MEDS: ACETAMINOPHEN 325 MG TAB PO PRN (14:50)
[2022-10-17] MEDS: SIMVASTATIN 20 MG TAB PO SCH (19:29)
[2022-10-18] MEDS: methylPREDNISolone 40 MG in SYRINGE 0 ML IV SCH ×3 (03:55→14:36)
[2022-10-18 08:37] LABS: Hematocrit (blood only) 34.3 % (37.0-47.0); Mean Corpuscular Hemoglobin 30.2 pg (25.0-34.0); Mean Corpuscular Volume 86.4 fL (80.0-100.0); Platelet Count 301 K/uL (130-400); RDW Coefficient of Variation 12.5 % (11.5-14.5); RDW Standard Deviation 39.8 fL (36.4-46.3); Red Blood Count 3.97 M/uL (4.20-5.40); White Blood Count 8.03 K/ul (4.8-10.8)
[2022-10-18 08:52] LABS: BUN Creatinine Ratio 18.8 (10-20); Calcium 9.5 mg/dl (8.6-10.3); Creatinine Clr Calc Pharmacy 41.7 ml/min; Est GFR (Non-African American) 64.7 ml/min
[2022-10-18] MEDS: CLOPIDOGREL BISULFATE 75 MG TAB PO SCH (08:55)
[2022-10-18] MEDS: CHOLECALCIFEROL 1,000 UNITS 25 MCG TAB PO SCH (08:57)
[2022-10-18] MEDS: ASPIRIN 81 MG ECTAB PO SCH (08:58)
[2022-10-18] MEDS: LOSARTAN POTASSIUM 50 MG TAB PO SCH (08:58)
[2022-10-18 08:59] LABS: Basophils # (auto) 0.01 K/uL (0-0.2); Basophils % (auto) 0.1 %; Eosinophils # (auto) 0.01 K/uL (0-0.50); Eosinophils % (auto) 0.1 %; Immature Granulocytes # (auto) 0.03 K/uL (0.01-0.20); Immature Granulocytes % (auto) 0.4 %; Lymphocytes % (auto) 6.2 %; Monocytes # (auto) 0.19 K/uL (0.11-0.59); Monocytes % (auto) 2.4 %; Neutrophils # (auto) 7.29 K/uL (1.40-6.50); Neutrophils % (auto) 90.8 %
[2022-10-18] MEDS: LANTUS PER UNIT CHARGE SQ SCH ×2 (09:07→21:17)
[2022-10-18] MEDS: INSULIN ASPART PER UNIT CHARGE SC SCH ×4 (09:08→21:18)
[2022-10-18] MEDS: METOPROLOL TARTRATE 25 MG TAB PO SCH ×2 (10:31→21:00)
--- NOTE | 2022-10-18 11:55 | Hospitalist Progress Note ---
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 Cardiac echo was negative for any embolic source. Teleneurology consultation noted. She is now on low-dose aspirin and Plavix will continue for 21 days. Simvastatin has been switched to atorvastatin. OT PT and speech evaluations have been ordered. She likely will need rehab placement at discharge (2) Dementia: Plan: Supportive care. She is very confused today which probably represents her baseline. (3) Osteoporosis: Plan: Supportive care (4) Type 2 diabetes mellitus with microalbuminuria: Plan: ADA diet. Sliding scale insulin coverage. Continue current medical manage (5) Anemia: Plan: Chronic. No evidence of GI bleeding. Serial labs (6) Hypercholesterolemia: Plan: Simvastatin has been switched to a atorvastatin per neurology recommendations (7) Hypertension: Plan: Stable. Continue current medical manage (8) Tenosynovitis of right wrist: Plan: Improving . parenteral Solu-Medrol has been tapered down Plan Anticipate discharge to inpatient rehab when arrangements are finalized Admission and Anticipated Discharge Date Admission Date: October 16, 2022 Subjective Alert but confused with rambling speech. I believe this represents her baseline dementia. Metoprolol started for hypertension and tachycardia. The right wrist appears to be improved. Solu-Medrol will be tapered down. Anticipate eventual discharge to [facility] when arrangements are finalized Review of Systems Review of Systems: The patient is unable to reliably answer any questions related to review of systems at this time Physical Exam Physical Exam: General-alert. Pleasant. Disoriented. No fevers, no chills HEENT-head atraumatic and normocephalic, equal and reactive to light, extraocular muscles intact Neck-no lymphadenopathy or thyromegaly, trachea midline Chest-clear to auscultation percussion. No rales wheezing or rhonchi Cardiac-regular rate and rhythm, normal S1 and S2 Abdomen-normal bowel sounds, nontender, no hepatosplenomegaly Extremities-no cyanosis, clubbing, or edema Neuro-cranial nerves II through XII intact, abnormal right hand [id number], right wrist tenosynovitis has improved Psych-normal affect, normal mood. Confused Results & Data Results & Data Vital Signs (Past 12 Hours) Vital Signs Temp Pulse Pulse Resp BP BP Pulse Ox 10/18/22 07:54 117 H 10/18/22 07:47 36.6 C 119 H 20 177/91 H 93 10/18/22 02:01 36.8 C 101 H 18 166/89 H 95 O2 Del Method 10/18/22 07:54 10/18/22 07:47 Room Air 10/18/22 02:01 Room Air Laboratory Results 10/18/22 08:15 10/18/22 08:15 PG Care Time/CCT Total # of Minutes Spent Total Time Spent with Patient: Total time spent is greater than 50% in coordination of care (as documented) at patient's floor/unit and/or counseling patient: Coding Level of Care Code 12197 SUB INP/OBS CARE 3/50MIN Diagnoses Stroke-like symptoms R29.90 Dementia F03.90 Osteoporosis M81.0 Type 2 diabetes mellitus with microalbuminuria E11.29; R80.9 Anemia D64.9 Hypercholesterolemia E78.00 Hypertension I10 Tenosynovitis of right wrist M65.9
[2022-10-18] MEDS: SIMVASTATIN 20 MG TAB PO SCH (21:01)
[2022-10-19] MEDS: methylPREDNISolone 40 MG in SYRINGE 0 ML IV SCH ×2 (00:32→12:47)
[2022-10-19] MEDS: INSULIN ASPART PER UNIT CHARGE SC SCH ×4 (09:25→22:05)
[2022-10-19] MEDS: LANTUS PER UNIT CHARGE SQ SCH ×2 (09:26→22:06)
[2022-10-19] MEDS: ASPIRIN 81 MG ECTAB PO SCH (09:27)
[2022-10-19] MEDS: LOSARTAN POTASSIUM 50 MG TAB PO SCH (09:27)
[2022-10-19] MEDS: CHOLECALCIFEROL 1,000 UNITS 25 MCG TAB PO SCH (09:27)
[2022-10-19] MEDS: CLOPIDOGREL BISULFATE 75 MG TAB PO SCH (09:28)
[2022-10-19] MEDS: METOPROLOL TARTRATE 25 MG TAB PO SCH (09:28)
[2022-10-19 10:00] LABS: BUN Creatinine Ratio 32.5 (10-20); Calcium 9.2 mg/dl (8.6-10.3); Creatinine Clr Calc Pharmacy 44.4 ml/min; Est GFR (African American) 80.7 ml/min; Est GFR (Non-African American) 69.6 ml/min
[2022-10-19 10:03] LABS: Basophils # (auto) 0.01 K/uL (0-0.2); Basophils % (auto) 0.1 %; Hematocrit (blood only) 33.4 % (37.0-47.0); Hemoglobin 11.3 g/dl (12.0-16.0); Immature Granulocytes # (auto) 0.07 K/uL (0.01-0.20); Immature Granulocytes % (auto) 0.5 %; Lymphocytes # (auto) 0.76 K/uL (1.2-3.4); Lymphocytes % (auto) 5.7 %; Mean Corpuscular Hemoglobin 29.7 pg (25.0-34.0); Mean Corpuscular Hgb Conc 33.8 g/dL (32.0-36.0); Mean Corpuscular Volume 87.7 fL (80.0-100.0); Mean Platelet Volume 11.5 fL (9.4-12.4); Monocytes # (auto) 0.62 K/uL (0.11-0.59); Monocytes % (auto) 4.7 %; Neutrophils # (auto) 11.82 K/uL (1.40-6.50); Platelet Count 278 K/uL (130-400); RDW Coefficient of Variation 12.8 % (11.5-14.5); RDW Standard Deviation 40.7 fL (36.4-46.3); Red Blood Count 3.81 M/uL (4.20-5.40); White Blood Count 13.28 K/ul (4.8-10.8)
[2022-10-19] MEDS ORDERED: METOPROLOL TARTRATE 25 MG TAB PO ONE (10:15)
[2022-10-19] MEDS ORDERED: OLANZapine 10 MG/2.1 ML SDV IM PRN (12:16)
--- NOTE | 2022-10-19 14:18 | Hospitalist Progress Note ---
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 Cardiac echo was negative for any embolic source. Teleneurology consultation noted. She is now on low-dose aspirin and Plavix will continue for 21 days. Simvastatin has been switched to atorvastatin. OT PT and speech evaluations have been ordered. She likely will need rehab placement at discharge (2) Dementia: Plan: Supportive care. Delirium last evening requiring one-on-one supervision. IM Zyprexa ordered as needed. (3) Type 2 diabetes mellitus with microalbuminuria: Plan: ADA diet. Sliding scale insulin coverage. Continue current medical manage (4) Anemia: Plan: Chronic. No evidence of GI bleeding. Serial labs (5) Hypercholesterolemia: Plan: Simvastatin has been switched to a atorvastatin per neurology recommendations (6) Hypertension: Plan: Stable. Continue current medical manage. Metoprolol dosage uptitrated today, October 20, for better control (7) Tenosynovitis of right wrist: Plan: Improvined. Treated with Solu-Medrol for several days. Steroids stopped today, October 19 Plan Anticipate discharge to inpatient rehab when arrangements are finalized . Hopeful discharge to [facility] tomOctober 20 Admission and Anticipated Discharge Date Admission Date: October 16, 2022 Subjective Unfortunately the patient had some delirium last night and required one-on-one supervision. We will use Zyprexa IM as needed. Parenteral steroids have been discontinued for the right wrist tenosynovitis. Metoprolol dosage uptitrated today for better blood pressure control. Hopeful discharge to [facility] tomorrOctober 20 Review of Systems Review of Systems: The patient is unable to reliably answer any questions related to review of systems at this time Physical Exam Physical Exam: General-somnolent HEENT-head atraumatic and normocephalic Neck-no lymphadenopathy or thyromegaly, trachea midline Chest-clear to auscultation percussion. No rales wheezing or rhonchi Cardiac-regular rate and rhythm, normal S1 and S2 Abdomen-normal bowel sounds, nontender, no hepatosplenomegaly Extremities-no cyanosis, clubbing, or edema Neuro-somnolent. Cannot assess Psych-somnolent. Cannot assess Results & Data Results & Data Vital Signs (Past 12 Hours) Vital Signs Temp Pulse Pulse Resp BP Pulse Ox O2 Del Method 10/19/22 11:21 36.4 C L 70 19 104/59 L 99 Room Air 10/19/22 08:09 36.6 C 73 18 174/84 H 96 Room Air 10/19/22 07:41 68 Laboratory Results 10/19/22 08:20 10/19/22 08:20 PG Care Time/CCT Total # of Minutes Spent Total Time Spent with Patient: Total time spent is greater than 50% in coordination of care (as documented) at patient's floor/unit and/or counseling patient: Coding Level of Care Code 31744 SUB INP/OBS CARE 3/50MIN Diagnoses Stroke-like symptoms R29.90 Dementia F03.90 Type 2 diabetes mellitus with microalbuminuria E11.29; R80.9 Anemia D64.9 Hypercholesterolemia E78.00 Hypertension I10 Tenosynovitis of right wrist M65.9
--- NOTE | 2022-10-19 14:25 | Pharmacy Report ---
- Date of Service October 19, 2022 - Pharmacy CVA/TIA Medication Review Medications to Prevent Stroke handout has been added to the patients discharge packet. Antiplatelet(s) * Plan for DAPT with aspirin and clopidogrel x21 days then aspirin monotherapy per neurology note Cholesterol * High intensity statin: atorvastatin 40 mg daily DVT Prophylaxis * SCD thigh Therapeutic Anticoagulation * No history of Afib/Aflutter noted Type 2 Diabetes * Patient has T2DM, but is not on a diabetes medication with proven CVD benefit. Discussed with Dr. Short - plans to follow [facility]. May defer to their outpati ent provider. "Medications to prevent stroke" handout has already been added to the patient's discharge packet, which instructs the patient to follow up with their outpatient provider to evaluate this.
--- NOTE | 2022-10-19 18:49 | CT Scan Report ---
CT head/brain wo con CLINICAL HISTORY: worsening stroke symptoms Technique: Contiguous axial CT images of the head were acquired from the base of the skull to the charito judy without intravenous contrast administration. Images were viewed in brain, subdural and bone [facility]. Automated dose lowering techniques and/or adjustment according to patient size were utilized for this exam. Comparison: Comparison is made to CT head 10/16/2022 Findings: Areas of decreased attenuation are present in the periventricular and subcortical white matter bilate rally consistent with small vessel ischemic disease. Generalized cerebral atrophy with commensurate e nlargement of the ventricles, sulci, and cisterns is also present. There is no acute intracranial hem orrhage or evidence of acute territorial infarction. No shift of the midline structures, mass effect, or extra-axial abnormalities are shown. Atherosclerotic calcifications are present in the intracran ial segments of the internal carotid arteries. Imaged portions of the paranasal sinuses and mastoid air cells are clear. The orbits appear normal. There are no acute fractures of the calvaria or scalp swelling. Impression: No acute intracranial hemorrhage, no evidence of acute territorial infarction or other acute intracra nial disease process. ACT 112: Negative or not required by law. Electronically signed by: Caio Staley M.D. 10/19/2022 6:47 PM
[2022-10-19] MEDS: METOPROLOL TARTRATE 50 MG TAB PO SCH (22:18)
[2022-10-20] MEDS: INSULIN ASPART PER UNIT CHARGE SC SCH ×4 (08:52→20:26)
[2022-10-20] MEDS: METOPROLOL TARTRATE 50 MG TAB PO SCH (10:26)
[2022-10-20] MEDS: LANTUS PER UNIT CHARGE SQ SCH ×2 (10:27→20:27)
[2022-10-20] MEDS: ATORVASTATIN 40 MG TAB PO SCH (10:28)
[2022-10-20] MEDS: CHOLECALCIFEROL 1,000 UNITS 25 MCG TAB PO SCH (10:28)
[2022-10-20] MEDS: ASPIRIN 81 MG ECTAB PO SCH (10:28)
[2022-10-20] MEDS: LOSARTAN POTASSIUM 50 MG TAB PO SCH (10:28)
[2022-10-20] MEDS: CLOPIDOGREL BISULFATE 75 MG TAB PO SCH (10:28)
--- NOTE | 2022-10-20 14:47 | Hospitalist Progress Note ---
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 Cardiac echo was negative for any embolic source. Teleneurology consultation noted. She is now on low-dose aspirin and Plavix will continue for 21 days. Simvastatin has been switched to atorvastatin. OT /PT continues. Rehab placement at discharge (2) Dementia: Plan: Supportive care. [place] psychosis has occurred this admission. Her grandson stayed in her room last evening and this helped. IM Zyprexa ordered as needed. (3) Type 2 diabetes mellitus with microalbuminuria: Plan: ADA diet. Sliding scale insulin coverage. Continue current medical manage (4) Anemia: Plan: Chronic. No evidence of GI bleeding. Serial labs (5) Hypercholesterolemia: Plan: Simvastatin has been switched to a atorvastatin per neurology recommendations (6) Hypertension: Plan: Stable. Continue current medical manage. Metoprolol dosage uptitrated on October 19, for better BP control and then down titrated on October 20 due to mild bradycardia. Blood pressure however is better (7) Tenosynovitis of right wrist: Plan: Improvined. Treated with Solu-Medrol for several days. Steroids stopped on October 19 Plan Anticipate discharge to inpatient rehab when arrangements are finalized . Admission and Anticipated Discharge Date Admission Date: October 16, 2022 Subjective Alert. Pleasant. The patient's grandson spent the night in the room last night and this seemed to help. Metoprolol dosage down titrated today due to mild sinus bradycardia. Blood pressure is controlled. Awaiting final arrangements for discharge to inpatient rehab Review of Systems Review of Systems: The patient is unable to reliably answer any questions related to review of systems at this time Physical Exam Physical Exam: General-alert but chronically disoriented with dementia HEENT-head atraumatic and normocephalic Neck-no lymphadenopathy or thyromegaly, trachea midline Chest-clear to auscultation percussion. No rales wheezing or rhonchi Cardiac-regular rate and rhythm, borderline bradycardia. Normal S1 and S2 Abdomen-normal bowel sounds, nontender, no hepatosplenomegaly Extremities-no cyanosis, clubbing, or edema Neuro-grossly intact Psych-pleasant with severe baseline dementia Results & Data Results & Data Vital Signs (Past 12 Hours) Vital Signs Temp Pulse Pulse Resp BP Pulse Ox O2 Del Method 07/17/23 11:00 36.5 C 60 16 125/69 99 Room Air 10/20/22 10:30 Room Air 10/20/22 07:31 36.6 C 59 L 18 117/68 98 Room Air 10/20/22 07:25 56 L 10/20/22 03:50 36.6 C 60 16 117/70 93 Room Air Laboratory Results 10/19/22 08:20 10/19/22 08:20 PG Care Time/CCT Total # of Minutes Spent Total Time Spent with Patient: Total time spent is greater than 50% in coordination of care (as documented) at patient's floor/unit and/or counseling patient: Coding Level of Care Code 57129 SUB INP/OBS CARE 3/50MIN Diagnoses Stroke-like symptoms R29.90 Dementia F03.90 Type 2 diabetes mellitus with microalbuminuria E11.29; R80.9 Anemia D64.9 Hypercholesterolemia E78.00 Hypertension I10 Tenosynovitis of right wrist M65.9
[2022-10-20] MEDS: METOPROLOL TARTRATE 25 MG TAB PO SCH (20:26)
[2022-10-21] MEDS: ACETAMINOPHEN 325 MG TAB PO PRN (04:52)
[2022-10-21] MEDS: INSULIN ASPART PER UNIT CHARGE SC SCH ×4 (08:37→20:38)
[2022-10-21] MEDS: CLOPIDOGREL BISULFATE 75 MG TAB PO SCH (08:37)
[2022-10-21] MEDS: METOPROLOL TARTRATE 25 MG TAB PO SCH ×2 (08:37→20:48)
[2022-10-21] MEDS: LANTUS PER UNIT CHARGE SQ SCH ×2 (08:37→20:48)
[2022-10-21] MEDS: ASPIRIN 81 MG ECTAB PO SCH (08:38)
[2022-10-21] MEDS: ATORVASTATIN 40 MG TAB PO SCH (08:38)
[2022-10-21] MEDS: CHOLECALCIFEROL 1,000 UNITS 25 MCG TAB PO SCH (08:38)
[2022-10-21] MEDS: LOSARTAN POTASSIUM 50 MG TAB PO SCH (08:38)
[2022-10-21 09:43] LABS: Estimated Average Glucose 189 mg/dl; Hemoglobin A1C 8.2 % (4.5-5.6)
[2022-10-21 09:57] LABS: Anion Gap 7 (3-11); BUN Creatinine Ratio 31.3 (10-20); Blood Urea Nitrogen 26 mg/dl (6-23); C Reactive Protein < 0.50 mg/dl (0-0.5); Calcium 8.9 mg/dl (8.6-10.3); Carbon Dioxide 27 mmol/L (21-32); Chloride 99 mmol/L (98-107); Creatinine Clr Calc Pharmacy 42.8 ml/min; Est GFR (African American) 77.2 ml/min; Est GFR (Non-African American) 66.6 ml/min; Glucose 236 mg/dl (70-99(Fasting)); Potassium 3.9 mmol/L (3.5-5.1); Sodium 133 mmol/L (136-145); Uric Acid 5.3 mg/dl (2.6-7.2)
[2022-10-21] MEDS ORDERED: SODIUM CHLORIDE 0.9% 500 ML IV SCH (10:30)
[2022-10-21] MEDS ORDERED: OPTIRAY 320 125ml IV ONE (12:02)
--- NOTE | 2022-10-21 12:26 | CT Scan Report ---
NECK CTA HISTORY: recent left-sided strokes TECHNIQUE: Multiaxial CT images of the neck were performed following the intravenous administration o f contrast to evaluate the major cervical vessels. 3D/MIP images were also obtained. Sagittal and cor onal reformats were reviewed. All measurements were calculated based on NASCET criteria. A dose low ering technique was utilized adhering to the principles of ALARA. COMPARISON STUDY: None. FINDINGS: The aortic arch and proximal great vessels are widely patent. There is no significant sten osis, occlusion, or dissection identified within the bilateral common carotid, left internal carotid, or vertebral arteries. There is mild calcified plaque within the proximal great vessels, aortic arch , carotid bifurcations, distal vertebral arteries. Focal stenosis of up to 70% at the takeoff of the right internal carotid artery due to the calcified plaque. This is best seen on axial image 203. Ther e is also mild focal narrowing within the proximal right internal carotid artery of approximately 30% due to a focus of calcified plaque on image 218. IMPRESSION: 1. Focal stenosis of approximately 70% at the takeoff of the right internal carotid artery due to the calcified plaque. 2. No significant stenosis, occlusion, or dissection within the left carotid arteries or vertebral ar teries. ACT 112: Negative or not required by law. Electronically signed by: Lan Shrestha M.D. 10/21/2022 12:25 PM
[2022-10-21] MEDS: PANTOprazole 40 MG TAB PO SCH (12:30)
--- NOTE | 2022-10-21 12:35 | CT Scan Report ---
CT ANGIOGRAM OF THE BRAIN CLINICAL HISTORY: Left-sided stroke. COMPARISON STUDY: Unenhanced CT of the brain dated 10/19/2022. CT angiogram of the brain dated 04/13/19. MRI of the brain dated 10/17/2022. TECHNIQUE: Following the IV administration of 117 cc of Optiray 320, CT angiogram of the brain was pe rformed from the skull base to the vertex. Images are reviewed in the axial, sagittal, and coronal pl anes. 3-D MIPS images are created and assessed. IV contrast was administered without complication. A dose lowering technique was utilized adhering to the principles of ALARA. FINDINGS: Brain parenchyma: There is age-related involutional change noting moderate subcortical and periventri cular microangiopathic disease. Evolving lacunar infarcts are seen in the left basal ganglia. There i s no evidence of hemorrhage, mass effect, or acute territorial ischemia noting angiographic phase diony hnique. There is no evidence of enhancing mass lesion on the angiogram phase images. No extra-axial f luid collection is seen. Hightower-white matter differentiation is preserved. Ventricles, sulci, and cisterns: Normal in configuration. CT angiogram of the brain: There is atherosclerotic calcification of the cavernous carotid and verteb ral arteries. The internal carotid arteries are widely patent, as are the anterior and middle cerebra l arteries. The vertebrobasilar system and posterior cerebral arteries are widely patent. The right v ertebral artery is dominant. There is no aneurysm, high-grade stenosis, or focal vessel cutoff identi fied throughout the intracranial circulation. Dural sinuses: Clear as visualized. Orbits: The bony orbits are intact. The orbital contents are normal as visualized noting bilateral oc ular lens implant. Sinuses and mastoids: The visualized paranasal sinuses are clear. The mastoid air cells are well pneu matized. Calvarium: Unremarkable. IMPRESSION: 1. There is no evidence of hemorrhage, mass effect, or acute territorial ischemia noting angiographi c phase technique. 2. Evolving lacunar infarcts are noted in the left basal ganglia. 3. Unremarkable CT angiogram of the brain. ACT 112: Negative or not required by law. Electronically signed by: Gonzalez Bosch M.D. 10/21/2022 12:33 PM
--- NOTE | 2022-10-21 12:39 | XRay Report ---
XR wrist RT min 3V routine CLINICAL HISTORY: recent fall, pain; eval fracture. Right wrist pain. COMPARISON STUDY: None. FINDINGS: There is soft tissue swelling within the right wrist. The bones are osteopenic. There is ch ondrocalcinosis within the right wrist. No definite fractures. No dislocation. IMPRESSION: 1. Soft tissue swelling within the right wrist. No definite fractures. 2. Chondrocalcinosis. ACT 112: Negative or not required by law. Electronically signed by: Lan Shrestha M.D. 10/21/2022 12:38 PM
--- NOTE | 2022-10-21 12:50 | XRay Report ---
XR wrist LT min 3V routine CLINICAL HISTORY: recent fall, eval fracture. Left wrist pain. COMPARISON STUDY: None. FINDINGS: Mild soft tissue swelling within the left wrist. Chondrocalcinosis is noted. No definite fr actures within the left wrist. No dislocation. An overlying intravenous line is noted. IMPRESSION: 1. Soft tissue swelling within the left wrist. No definite fractures. 2. Chondrocalcinosis. 3. Of note, the diffuse osteopenia results in difficult evaluation for a fracture. If there is high c linical concern for a fracture within the right or left wrist, consider repeat radiographs in 2 weeks . ACT 112: Negative or not required by law. Electronically signed by: Lan Shrestha M.D. 10/21/2022 12:49 PM
--- NOTE | 2022-10-21 19:10 | Hospitalist Progress Note ---
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.fib thus far neuro saw early in admission - asa/plavix x 21 days, then aspirin monotherapy thereafter event monitor (30-day) post discharge to r/o PAF agree with lipitor 40mg daily (LDL 97) cont PT, OT, speech therapy (2) Acute metabolic encephalopathy: Plan: 2nd to #1 cannot rule out hospital psychosis in the setting of her dementia her day-night cycle is completely flipped; per son she does this frequently at home will give olanzapine scheduled 2.5mg HS tonight to help restore normal sleep- wake cycle (3) Carotid artery stenosis: Plan: right-sided 70% strokes are on the left no Rx needed cont antiplatelet agents cont statin (4) Dementia: Plan: with hospital psychosis/behavioral disturbance schedule olanzapine 2.5mg HS (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: Plan: a1c noted (8.2%) cont lantus 5 units BID cont novolog SSI (6) Anemia: Plan: very mild Hb 11-12 B12 313 in 2021; will repeat am folate 14.9 in 2021; will repeat am ferritin 190s this admission (7) Hypercholesterolemia: Plan: Simvastatin has been switched to a atorvastatin per neurology recommendations LDL 97 HDL 63 (8) Hypertension: Plan: remains on metoprolol 25mg BID + losartan 50mg daily BPs acceptable (9) Tenosynovitis of right wrist: Plan: 2nd to pseudogout (x-rays today with CPPD crystals) s/p IV steroids symptoms/signs now resolved no fractures on x-rays today (10) DVT prophylaxis: Plan: will add heparin tomorrow Plan updated pt's son by phone this evening disposition - rehab Admission and Anticipated Discharge Date Admission Date: October 16, 2022 Subjective patient very sleepy during the visit was unable to carry on any significant conversation was able to tell me she was not in any pain per staff she was up most of the night since shift change this AM she has slept took very little breakfast and similar for lunch tele overnight - NSR Review of Systems Review of Systems: Unobtainable due to cognitive status Physical Exam Physical Exam: gen - very sleepy, could only answer basic questions with 1-word answers eyes - PERRL neck - no JVD mouth - MM slightly dry heart - irregular, s1 s2, 2/6 systolic murmur LSB lungs - CTA b/l abd - soft NT ND BS+ ext - no edema, pulses 2+ b/l neuro - right lower facial droop; ?left eye ptosis; increased tone right arm; handgrip 4/5 on right, 5/5 on left musculo - neither wrist with synovitis Results & Data Results & Data Vital Signs (Past 12 Hours) Vital Signs Temp Pulse Pulse Resp BP Pulse Ox O2 Del Method 10/21/22 15:27 51 L 10/21/22 15:21 36.4 C L 54 L 18 157/68 H 98 Room Air 10/21/22 08:40 Room Air 10/21/22 08:00 36.7 C 74 20 151/80 H 98 Room Air Laboratory Results Laboratory Results - last 24 hr 10/21/22 10/21/22 10/21/22 08:00 08:39 08:39 Sodium 133 L Potassium 3.9 Chloride 99 Carbon Dioxide 27 Anion Gap 7 BUN 26 H Creatinine 0.83 Est Cr Clr Drug Dosing 42.8 Est GFR ( Amer) 77.2 Est GFR (Non-Af Amer) 66.6 BUN/Creatinine Ratio 31.3 H Glucose 236 H POC Glucose 161 H Estimat Average Glucose 189 Hemoglobin A1c 8.2 H Uric Acid 5.3 Calcium 8.9 C-Reactive Protein < 0.50 10/21/22 10/21/22 10/21/22 12:25 16:49 20:33 Sodium Potassium Chloride Carbon Dioxide Anion Gap BUN Creatinine Est Cr Clr Drug Dosing Est GFR ( Amer) Est GFR (Non-Af Amer) BUN/Creatinine Ratio Glucose POC Glucose 169 H 118 H 101 H Estimat Average Glucose Hemoglobin A1c Uric Acid Calcium C-Reactive Protein Diagnostic Findings Head CTA 10/21/22 10:19 CT ANGIOGRAM OF THE BRAIN CLINICAL HISTORY: Left-sided stroke. COMPARISON STUDY: Unenhanced CT of the brain dated 10/19/2022. CT angiogram of the brain dated 04/13/2021. MRI of the brain dated 10/17/2022. TECHNIQUE: Following the IV administration of 117 cc of Optiray 320, CT angiogram of the brain was performed from the skull base to the vertex. Images are reviewed in the axial, sagittal, and coronal planes. 3-D MIPS images are created and assessed. IV contrast was administered without complication. A dose lowering technique was utilized adhering to the principles of ALARA. FINDINGS: Brain parenchyma: There is age-related involutional change noting moderate subcortical and periventricular microangiopathic disease. Evolving lacunar infarcts are seen in the left basal ganglia. There is no evidence of hemorrhage, mass effect, or acute territorial ischemia noting angiographic phase technique. There is no evidence of enhancing mass lesion on the angiogram phase images. No extra-axial fluid collection is seen. Hightower-white matter differentiation is preserved. Ventricles, sulci, and cisterns: Normal in configuration. CT angiogram of the brain: There is atherosclerotic calcification of the cavernous carotid and vertebral arteries. The internal carotid arteries are widely patent, as are the anterior and middle cerebral arteries. The vertebrobasilar system and posterior cerebral arteries are widely patent. The right vertebral artery is dominant. There is no aneurysm, high-grade stenosis, or focal vessel cutoff identified throughout the intracranial circulation. Dural sinuses: Clear as visualized. Orbits: The bony orbits are intact. The orbital contents are normal as visualized noting bilateral ocular lens implant. Sinuses and mastoids: The visualized paranasal sinuses are clear. The mastoid air cells are well pneumatized. Calvarium: Unremarkable. IMPRESSION: 1. There is no evidence of hemorrhage, mass effect, or acute territorial ischemia noting angiographic phase technique. 2. Evolving lacunar infarcts are noted in the left basal ganglia. 3. Unremarkable CT angiogram of the brain. ACT 112: Negative or not required by law. Electronically signed by: Gonzalez Bosch M.D. 10/21/2022 12:33 PM Neck CTA 10/21/22 10:19 NECK CTA HISTORY: recent left-sided strokes TECHNIQUE: Multiaxial CT images of the neck were performed following the intravenous administration of contrast to evaluate the major cervical vessels. 3D/MIP images were also obtained. Sagittal and coronal reformats were reviewed. All measurements were calculated based on NASCET criteria. A dose lowering technique was utilized adhering to the principles of ALARA. COMPARISON STUDY: None. FINDINGS: The aortic arch and proximal great vessels are widely patent. There is no significant stenosis, occlusion, or dissection identified within the bilateral common carotid, left internal carotid, or vertebral arteries. There is mild calcified plaque within the proximal great vessels, aortic arch, carotid bifurcations, distal vertebral arteries. Focal stenosis of up to 70% at the takeoff of the right internal carotid artery due to the calcified plaque. This is best seen on axial image 203. There is also mild focal narrowing within the proximal right internal carotid artery of approximately 30% due to a focus of calcified plaque on image 218. IMPRESSION: 1. Focal stenosis of approximately 70% at the takeoff of the right internal carotid artery due to the calcified plaque. 2. No significant stenosis, occlusion, or dissection within the left carotid a rteries or vertebral arteries. ACT 112: Negative or not required by law. Electronically signed by: Lan Shrestha M.D. 10/21/2022 12:25 PM Wrist X-Ray 10/21/22 10:19 XR wrist RT min 3V routine CLINICAL HISTORY: recent fall, pain; eval fracture. Right wrist pain. COMPARISON STUDY: None. FINDINGS: There is soft tissue swelling within the right wrist. The bones are osteopenic. There is chondrocalcinosis within the right wrist. No definite fractures. No dislocation. IMPRESSION: 1. Soft tissue swelling within the right wrist. No definite fractures. 2. Chondrocalcinosis. ACT 112: Negative or not required by law. Electronically signed by: Lan Shrestha M.D. 10/21/2022 12:38 PM Wrist X-Ray 10/21/22 12:02 XR wrist LT min 3V routine CLINICAL HISTORY: recent fall, eval fracture. Left wrist pain. COMPARISON STUDY: None. FINDINGS: Mild soft tissue swelling within the left wrist. Chondrocalcinosis is noted. No definite fractures within the left wrist. No dislocation. An overlying intravenous line is noted. IMPRESSION: 1. Soft tissue swelling within the left wrist. No definite fractures. 2. Chondrocalcinosis. 3. Of note, the diffuse osteopenia results in difficult evaluation for a fracture. If there is high clinical concern for a fracture within the right or left wrist, consider repeat radiographs in 2 weeks. ACT 112: Negative or not required by law. Electronically signed by: Lan Shrestha M.D. 10/21/2022 12:49 PM PG Care Time/CCT Total # of Minutes Spent Total Time Spent with Patient: Total time spent is greater than 50% in coordination of care (as documented) at patient's floor/unit and/or counseling patient: Coding Level of Care Code 91022 SUB INP/OBS CARE 350MIN Diagnoses Stroke I63.9 Acute metabolic encephalopathy G93.41 Carotid artery stenosis I65.29 Dementia F03.90 Type 2 diabetes mellitus with microalbuminuria E11.29; R80.9 Anemia D64.9 Hypercholesterolemia E78.00 Hypertension I10 Tenosynovitis of right wrist M65.9 DVT prophylaxis Z29.9
[2022-10-21] MEDS ORDERED: OLANZapine 10 MG/2.1 ML SDV IM PRN (19:14)
[2022-10-21] MEDS ORDERED: OLANZAPINE 2.5 MG TAB PO SCH (21:00)
[2022-10-22 08:02] LABS: BUN Creatinine Ratio 34.3 (10-20); Calcium 8.7 mg/dl (8.6-10.3); Est GFR (African American) 96.2 ml/min; Potassium 3.8 mmol/L (3.5-5.1)
[2022-10-22 08:30] LABS: Folate (Folic Acid),Ser orPlas 16.82 ng/ml (>5.38)
[2022-10-22] MEDS: ATORVASTATIN 40 MG TAB PO SCH (08:32)
[2022-10-22] MEDS: METOPROLOL TARTRATE 25 MG TAB PO SCH ×2 (08:32→21:14)
[2022-10-22] MEDS: ASPIRIN 81 MG ECTAB PO SCH (08:32)
[2022-10-22] MEDS: INSULIN ASPART PER UNIT CHARGE SC SCH ×4 (08:33→21:09)
[2022-10-22] MEDS: CLOPIDOGREL BISULFATE 75 MG TAB PO SCH (08:33)
[2022-10-22] MEDS: CHOLECALCIFEROL 1,000 UNITS 25 MCG TAB PO SCH (08:33)
[2022-10-22] MEDS: PANTOprazole 40 MG TAB PO SCH (08:33)
[2022-10-22] MEDS: LOSARTAN POTASSIUM 50 MG TAB PO SCH (08:33)
[2022-10-22] MEDS: LANTUS PER UNIT CHARGE SQ SCH ×2 (08:40→21:09)
[2022-10-22] MEDS ORDERED: LACTATED RINGER'S 1,000 ML IV SCH (18:30)
--- NOTE | 2022-10-22 22:47 | Hospitalist Progress Note ---
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 Could be effect of olanzapine, however, patient was asleep the day prior and concern was that patient was sleeping during day but awake at bedsime. Patient though has been sleeping appears since the evening. She did wake up and sat at the edge of the bed for PT, but she could not fully participate. Review of images show evolving left basal ganglia lacunar infarct. Will hold scheduled olanzapine only keep available PRN. will reconsult neuro. family agreeable to palliative care consult. cont PT, OT, speech therapy (2) Acute metabolic encephalopathy: Plan: 2nd to #1 cannot rule out hospital psychosis in the setting of her dementia her day-night cycle is completely flipped; per son she does this frequently at home received olanzapine scheduled 2.5mg HS on 10/21 to help restore normal sleep-wake cycle (3) Carotid artery stenosis: Plan: right-sided 70% strokes are on the left no Rx needed cont antiplatelet agents cont statin (4) Dementia: Plan: with hospital psychosis/behavioral disturbance schedule olanzapine 2.5mg HS on 10/21, this was stopped (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: Plan: a1c noted (8.2%) cont lantus 5 units BID cont novolog SSI (6) Anemia: Plan: very mild Hb 11-12 B12 313 in 2021; will repeat am folate 14.9 in 2021; will repeat am ferritin 190s this admission (7) Hypercholesterolemia: Plan: Simvastatin has been switched to a atorvastatin per neurology recommendations LDL 97 HDL 63 (8) Hypertension: Plan: remains on metoprolol 25mg BID + losartan 50mg daily BPs acceptable (9) Tenosynovitis of right wrist: Plan: 2nd to pseudogout (x-rays today with CPPD crystals) s/p IV steroids symptoms/signs now resolved no fractures on x-rays today (10) DVT prophylaxis: Plan: will add heparin tomorrow Plan updated pt's son in person this evening on 10/22 disposition - rehab Admission and Anticipated Discharge Date Admission Date: October 16, 2022 Subjective Patient is lethargic. Does not participate in questioning. Family reports she has dementia, and though recalls that she recognizes the face of the people close to her, she does not remember their relationship to her, forgets that her visitor today is her son. Review of Systems Review of Systems: Unobtainable due to cognitive status Physical Exam Physical Exam: gen - Patient remains drowsy, responds to painful stimuli but falls asleep. neck - no JVD mouth - MM slightly dry heart - irregular, s1 s2, 2/6 systolic murmur LSB lungs - CTA b/l abd - soft NT ND BS+ ext - no edema, pulses 2+ b/l neuro - right lower facial droop; ?left eye ptosis; increased tone right arm; handgrip 4/5 on right, 5/5 on left musculo - neither wrist with synovitis Results & Data Results & Data Vital Signs (Past 12 Hours) Vital Signs Temp Pulse Pulse Resp BP Pulse Ox O2 Del Method 10/22/22 21:56 Room Air 10/22/22 19:00 36.7 C 68 18 112/68 97 Room Air 10/22/22 11:30 Room Air 10/22/22 17:35 61 10/22/22 11:14 72 10/22/22 11:12 36.5 C 55 L 18 99/52 L 94 Room Air PG Care Time/CCT Total # of Minutes Spent Total Time Spent with Patient: Total time spent is greater than 50% in coordination of care (as documented) at patient's floor/unit and/or counseling patient: Coding Level of Care Code 01590 SUB INP/OBS CARE 3/50MIN Diagnoses Stroke I63.9 Acute metabolic encephalopathy G93.41 Carotid artery stenosis I65.29 Dementia F03.90 Type 2 diabetes mellitus with microalbuminuria E11.29; R80.9 Anemia D64.9 Hypercholesterolemia E78.00 Hypertension I10 Tenosynovitis of right wrist M65.9 DVT prophylaxis Z29.9 Time Spent (min) 50
[2022-10-22] MEDS: ACETAMINOPHEN 325 MG TAB PO PRN (23:01)
[2022-10-23 06:20] LABS: Hematocrit (blood only) 32.6 % (37.0-47.0); Hemoglobin 11.2 g/dl (12.0-16.0); Mean Corpuscular Hemoglobin 29.8 pg (25.0-34.0); Mean Corpuscular Hgb Conc 34.4 g/dL (32.0-36.0); Mean Corpuscular Volume 86.7 fL (80.0-100.0); Mean Platelet Volume 11.4 fL (9.4-12.4); Platelet Count 227 K/uL (130-400); RDW Coefficient of Variation 12.8 % (11.5-14.5); RDW Standard Deviation 40.5 fL (36.4-46.3); Red Blood Count 3.76 M/uL (4.20-5.40); White Blood Count 8.77 K/ul (4.8-10.8)
[2022-10-23 06:51] LABS: BUN Creatinine Ratio 32.3 (10-20); Calcium 8.6 mg/dl (8.6-10.3); Creatinine Clr Calc Pharmacy 54.6 ml/min; Est GFR (African American) 97.2 ml/min; Est GFR (Non-African American) 83.9 ml/min; Potassium 3.9 mmol/L (3.5-5.1)
--- NOTE | 2022-10-23 07:57 | Hospitalist Progress Note ---
Date of Service October 23, 2022 Assessment & Plan (1) Stroke: Plan: acute - left thalamus, left medial temporal lobe CTA of the neck had revealed a 70% stenosis at the takeoff of the right internal carotid artery. A brain MRI had revealed small acute infarcts in the left thalamus and medial left temporal lobe. echocardiogram was negative for cardioembolic source preserved ejection fraction No atrial fibrillation identified on telemetry. She has been persistently lethargic, potentially related to olanzapine. neuro recommendation - asa/plavix x 21 days, then aspirin monotherapy thereafter event monitor (30-day) post discharge to r/o PAF agree with lipitor 40mg daily (LDL 97) chronic hypertension, remains on metoprolol 25mg BID + losartan 50mg daily family agreeable to palliative care consult, set up family meeting for 10/24/22 cont PT, OT, speech therapy (2) Acute metabolic encephalopathy: Plan: 2nd to CVA with baseline dementia cannot rule out hospital psychosis in the setting of her dementia her day-night cycle is completely flipped; per son she does this frequently at home (3) Carotid artery stenosis: Plan: right-sided 70% strokes are on the left if improves can be followed outpt by vasc surgery cont antiplatelet agents, DAPT for 21 d then aspirin cont statin (4) Type 2 diabetes mellitus with microalbuminuria: Plan: a1c noted (8.2%) cont lantus 5 units BID cont novolog SSI (5) Anemia: Plan: very mild Hb 11-12 B12, folate repeat am (6) Hypercholesterolemia: Plan: Simvastatin has been switched to a atorvastatin per neurology recommendations LDL 97 HDL 63 (7) Tenosynovitis of right wrist: Plan: 2nd to pseudogout (x-rays today with CPPD crystals) s/p IV steroids symptoms/signs now resolved no fractures on x-rays today (8) DVT prophylaxis: Plan: heparin sc Plan disposition - rehab Admission and Anticipated Discharge Date Admission Date: October 16, 2022 Subjective patient was sleeping most of the day she does arouse and converse. She does not look to her right side consistent with a stroke seen on the left on her imaging studies. Family was in room they are not the decision-makers however they are grandsons they were updated patient herself offers very little input Physical Exam Physical Exam: patient is right-sided weakness will not look towards a right-sided room. She will have her look to the left and converse when on that side. Her strength is fairly against gravity on the right Results & Data Results & Data Vital Signs (Past 12 Hours) Vital Signs Temp Pulse Pulse Resp BP Pulse Ox O2 Del Method 10/23/22 07:38 98.8 F 82 20 137/76 97 Room Air 10/23/22 04:00 98.1 F 70 18 139/71 95 Room Air 10/23/22 03:53 74 10/22/22 21:56 Room Air Laboratory Results reviewed CBC reviewed PRP PG Care Time/CCT Total # of Minutes Spent Total Time Spent with Patient: Total time spent is greater than 50% in coordination of care (as documented) at patient's floor/unit and/or counseling patient: Coding Level of Care Code 23068 SUB INP/OBS CARE 2/35MIN Diagnoses Stroke I63.9 Acute metabolic encephalopathy G93.41 Carotid artery stenosis I65.29 Type 2 diabetes mellitus with microalbuminuria E11.29; R80.9 Anemia D64.9 Hypercholesterolemia E78.00 Tenosynovitis of right wrist M65.9 DVT prophylaxis Z29.9
[2022-10-23] MEDS: INSULIN ASPART PER UNIT CHARGE SC SCH ×4 (09:17→20:54)
--- NOTE | 2022-10-23 09:42 | Neurology Progress Note ---
Date of Service October 23, 2022 Assessment & Plan (1) Stroke: (2) Carotid artery stenosis: (3) Dementia: Plan Patient's degree of neurologic deficits seems greater than what would typically be expected from the degree of infarcts identified on her brain MRI completed on October 17. I would recommend a follow-up noncontrast brain MRI. I agree that the identified infarcts have an embolic character and atrial fibrillation should be further excluded with 30-day mobile cardiac outpatient telemetry. For the time being, she should continue with dual antiplatelet therapy, typically for 3 weeks, followed by transition to clopidogrel 75 mg/day. She should continue with atorvastatin 40 mg/day. I agree that the identified right carotid stenosis is not likely clinically significant although she will need outpatient assessment with vascular surgery. I also note her history of dementia with psychosis, behavioral disturbance. She had received a low-dose of olanzapine and of course this medication could be contributing to her lethargy. This medication was discontinued. We have seen this patient in clinic regarding her dementia and history of TIA previously, she was seen by Grace Nava PA-C, and Dr. Crenshaw, in October 2021. Would recommend additional outpatient follow-up in 3 to 4 weeks after discharge. Admission and Anticipated Discharge Date Admission Date: October 16, 2022 Subjective Follow-up regarding embolic stroke The patient is an 82-year-old female with a history of dementia and poorly controlled diabetes mellitus who presented with strokelike symptoms characterized by right arm weakness on October 16, 2022. She was seen in neurological consultation with Dr. Khan the following day. A CTA of the neck had revealed a 70% stenosis at the takeoff of the right internal carotid artery. A CT of the head was unremarkable. A brain MRI had revealed small acute infarcts in the left thalamus and medial left temporal lobe. No hemorrhage. I independently reviewed these images and agree with the findings as described by radiology. An echocardiogram was negative for cardioembolic source although the left atrium was moderately dilated. No atrial fibrillation identified on telemetry. She has been persistently lethargic, potentially related to olanzapine. Neurology has been reconsulted. The patient is lethargic this morning and exhibits a significant right hemiparesis with signs of visual and right hemisensory neglect. She denies headache. She is a limited historian at this time. Review of Systems Review of Systems: Unobtainable due to cognitive status Results & Data Vital Signs (Past 12 Hours) Vital Signs Temp Pulse Pulse Resp BP Pulse Ox O2 Del Method 10/23/22 07:38 37.1 C 82 20 137/76 97 Room Air 10/23/22 04:00 36.7 C 70 18 139/71 95 Room Air 10/23/22 03:53 74 10/22/22 21:56 Room Air Exam (Neuro) Neurologic: Oriented to:: Person Attention: negative Span Intact or Concentration Intact Speech Fluency: Dysfluency Cranial Nerves: Normal III, IV, ; Abnorm II (right visual neglect) or VII (right facial droop) Motor Strength: Hemiplegia Laterality: Right Details: Patient exhibits signs of right hemineglect and a dense right hemiplegia. Coding Level of Care Code 38660 SUB INP/OBS CARE MIN Diagnoses Stroke I63.9 Carotid artery stenosis I65.29 Dementia F03.90
[2022-10-23] MEDS: LANTUS PER UNIT CHARGE SQ SCH ×2 (09:47→20:54)
[2022-10-23] MEDS: CYANOCOBALAMIN 1000 MCG/ML VIAL IM SCH (09:48)
[2022-10-23] MEDS: HEPARIN SOD 5,000 UNIT/0.5 ML VIAL SQ SCH ×2 (09:48→20:52)
[2022-10-23] MEDS: LOSARTAN POTASSIUM 50 MG TAB PO SCH (09:49)
[2022-10-23] MEDS: CHOLECALCIFEROL 1,000 UNITS 25 MCG TAB PO SCH (09:49)
[2022-10-23] MEDS: METOPROLOL TARTRATE 25 MG TAB PO SCH ×2 (09:49→20:53)
[2022-10-23] MEDS: CLOPIDOGREL BISULFATE 75 MG TAB PO SCH (09:50)
[2022-10-23] MEDS: PANTOprazole 40 MG TAB PO SCH (09:50)
[2022-10-23] MEDS: ASPIRIN 81 MG ECTAB PO SCH (09:50)
[2022-10-23] MEDS: ATORVASTATIN 40 MG TAB PO SCH (09:51)
--- NOTE | 2022-10-23 13:06 | Palliative Care Consultation ---
Date of Consultation October 23, 2022 Assessment & Plan (1) Altered mental status: (2) Weakness generalized: (3) Delirium: [facility]+ (4) Palliative care by specialist: Met with family. Provided overview of Palliative Medicine, a subspecialty that provides specialized medical care for people living with a serious illness by offering a focus on quality of life. Palliative Medicine is often conflated with hospice: I advised patient/family that Palliative and hospice can be partners but we are not the same. It is important to understand the difference so that we may be informed, and not afraid. Palliative Medicine works to improve QOL through reduction of symptom burden/more control over their illness, for both the patient and family. Palliative medicine clinicians are board certified, specially-trained and another member of the patient's medical care team. We often provide an extra layer of support because our care is based on the needs of the patient, not the prognosis; as such, it's appropriate at any age/advancing stage of a serious illness and can be provided along with curative treatment. Palliative Medicine clinicians are also trained in advanced communication methodologies, to facilitate complex discussions about advanced illness planning, which are needed to help assure that the treatment choices match the patient's goals, aka delivering Goal Concordant care. Finally, we discussed that hospice is a visiting nurse service that focuses on care delivered at the very end of life for patients with terminal illness, with life expectancy less than 6 month. (5) Advanced care planning/counseling discussion: Face to face ACP at bedside with grandson Jonathan x 45min He very politely shared how he believes pt "makes total sense and is totally with it when I'm here with her, I think people just don't give her enough time, I mean she's slow to answer sure but she has said a few funny things and cracked a few jokes with me." He worries that what is happening now is because she was not in his opinion properly checked on after being out in the heat. we discussed her delirium screen is ++ . Jonathan feels this is not an accurate measure of patient's capacity. I reviewed she was unaware of date/year/month or location. I advised she is not decisional at this time. Jonathan notes his Mom had a stroke 2 years ago at 57yo and has made a good recovery so why can't pt do the same? We reviewed pt adv medical issues, age, frailty. She is not able to engage in acute rehab at [facility], she is not able to participate in bedside PT here and therapy has not been able to work with her due to her lethargy. Jonathan's devotion is very evident. He is struggling with the implications of pt condition and having a hard time accepting the diagnoses. we spoke for a little bit about how sometimes what we wish for and what is reality may often be farthe r apart than we want but nevertheless requires our time and attention to assure we do what is right for the patient and aligned with her personal wishes and preferences - ie would SNF LTC be acceptable for her? Do they have capacity as family to offer 24/ in home care? There is no insurance coverage for this and would be OOP for family. He shares about how pt who a few years ago was her patriarch and that is why she did not complete an AD. I reviewed surrogate decision making order in [place] when there is no AD. Confirmed her surrogate decision maker is her son-a regional dedicated truck driver. The pt dtr is Melanie mom/ she is 59 and due to her stroke, doesnt directly make decisions but is involved in discussions per Jonathan. He was receptive to a family meeting and I offered tomorrow between 11-1am - Jonathan will let nursing know what time works for them after speaking with his uncle. I updated primary team and nursing. Plan * anticipate a possible fam mtg tomorrow if Jonathan and his uncle agree on a time * I have updated primary team and nursing Thank you for allowing us to participate in the ongoing care of this patient. Please don't hesitate to call or page with any additional concerns. Dr. Zenia Perez DNP Director, Palliative Care History of Present Illness Reason for Consultation: [facility] Attending Physician: Ronal Dias MD History of Present Illness Parisa Lara is a 82 year old female with PMH dementia, HTN, HLD, DM2, TIA 04/2021, iron def anemia, osteoporosis, "presenting with 1 week of confusion, left eye drooping, trouble walking. 1 week ago she was sitting on her porch outside in the heat. She became lethargic and family took her inside. Since then family has noted that she has been confused, not acting like herself, left eye has been drooping and has been having trouble walking. She was seen by her PCP on 10/13 for an AWV. Documentation from that visit reviewed and the recent episode of weakness that improved with sitting inside in the cool. Kwasi is at bedside with her. He states that she had a fall in the kitchen after this episode of weakness and has been complaining of right sided hip pain. Has continue weakness and confusion. Lives with son and grandson in 2 story house. Her bedroom, bathroom and kitchen are on the second story. Spoke with son, Gautam, who is in the process of becoming her POA. ED work-up significant for: Head CT without acute intracranial process, CT cervical spine without acute findings. CXR, XR Hip/Pelvis without acute process per my review. Radiology read still pending." MRI revealed acute - left thalamus, left medial temporal lobe; it is noted that both locations are supplied by the COLLATING MACHINE OPERATOR. The etiology of stroke - ischemic vs embolic. Echo: without embolus Neuro consult: "Patient's degree of neurologic deficits seems greater than what would typically be expected from the degree of infarcts identified on her brain MRI completed on October 17. I would recommend a follow-up noncontrast brain MRI. I agree that the identified infarcts have an embolic character and atrial fibrillation should be further excluded with 30-day mobile cardiac outpatient telemetry. For the time being, she should continue with dual antiplatelet therapy, typically for 3 weeks, followed by transition to clopidogrel 75 mg/ day. She should continue with atorvastatin 40 mg/day. I agree that the identified right carotid stenosis is not likely clinically significant although she will need outpatient assessment with vascular surgery. I also note her history of dementia with psychosis, behavioral disturbance. She had received a low-dose of olanzapine and of course this medication could be contributing to her lethargy. This medication was discontinued. We have seen this patient in clinic regarding her dementia and history of TIA previously, she was seen by Grace Nava PA-C, and Dr. Crenshaw, in October 2021. Would recommend additional outpatient follow-up in 3 to 4 weeks after discharge." Parisa is seen at bedside with her grandson Jonathan present. Another grandson, Jonathan's cousin, is asleep in the recliner and did not participate in this visit. Jonathan states pt is normally very engaged and "loves being with the family, sitting on the porch, being with her grandkids." He feels she was out on the porch too long prior to admission and was overheated then when she came iside "nobody was checking on her. She was sleeping or "resting" alot but she hates to do that because [place] she was [place] and was punished for resting or sleeping, so she never liked to be resting, always has to be doing something." Allergies Allergy/AdvReac Type Severity Reaction Status Date / Time nickel Allergy Intermediate Rash Verified 10/16/22 20:05 Home Medications Medication Instructions Recorded Confirmed Type aspirin 81 mg tablet,delayed 81 mg PO DAILY #0 tabs 12/16/21 10/16/22 Rx release simvastatin 20 mg tablet 20 mg PO HS #90 tabs 12/16/21 10/16/22 Rx losartan 50 mg tablet 50 mg PO DAILY #90 tabs 08/26/22 10/16/22 Rx metformin 1,000 mg tablet 1,000 mg PO DAILY #90 tabs 10/13/22 10/16/22 Rx cholecalciferol (vitamin D3) 50 50 mcg PO DAILY 10/16/22 10/16/22 History mcg (2,000 unit) tablet Patient History Medical History (Updated 10/23/22 @ 15:39 by Zenia Perez DNP) Advanced care planning/counseling discussion Altered mental status Bilateral leg edema Delirium Exposure to COVID-19 virus History of TIA (transient ischemic attack) Hx of basal cell carcinoma Hx of diabetic retinopathy Hypercholesterolemia Hypertension Iliotibial band syndrome Left groin pain Osteoporosis Palliative care by specialist 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 Grandmother (Maternal) Diabetes Denies family history of Ovarian cancer Prostate cancer Myocardial infarction Breast cancer Social History Smoking Status: Never smoker Second Hand Exposure: Yes; Do You Dip or Chew Tobacco: No; Hx Alcohol Use: No Hx Substance Use: No Preferred Language: Macedonian Communication Ability: Effective Home Demonstrator Required: No Beliefs That Will Affect Care: None marital status: / Current Living Situation: Family Current Living Situation Comment: lives with son current occupational status: retired Feels Safe at Home: Yes Safety Concerns: Feels Safe At This Time caffeine: Yes Dental Care, Regularly: Yes Seatbelt Use: always Sunscreen Use: Yes Assistive Devices: Walker Review of Systems Review of Systems: Unobtainable due to cognitive status and Unobtainable due to reduced consciousness Physical Exam Physical Exam: [facility] delirium screen ++ pt alert to self year is 1968 month is May frail appearing elderly female, lying in bed, lilting to left lethargic and some garbled speech opens eyes slightly with name call, quickly drifts back off right hemiplegic weakness weak grasp on LUE lungs diminished S1S2, irreg irreg, +murmur Abd soft, BS+ +generalized weakness pale skin, warm to touch Results & Data Vital Signs (Past 12 Hours) Vital Signs Temp Pulse Pulse Resp BP Pulse Ox O2 Del Method 10/23/22 11:34 36.7 C 76 16 110/63 96 Room Air 10/23/22 09:40 Room Air 10/23/22 07:38 37.1 C 82 20 137/76 97 Room Air 10/23/22 04:00 36.7 C 70 18 139/71 95 Room Air 10/23/22 03:53 74 Laboratory Results data reviewed Diagnostic Findings PG Care Time/CCT Total # of Minutes Spent Total Time Spent: 110 Total Time Spent with Patient: Total time spent is greater than 50% in coordination of care (as documented) at patient's floor/unit and/or counseling patient: I spent 110 minutes overall addressing this case: 15in medical data review/discussion with referring provider(s) and/or preparation for the visit 25 in direct interaction with the patient and family 45 Advance Care Planning/Goals of Care discussions as detailed tennille roe in note (must be >16min) 10 in subsequent review and synthesis of assessment and plan 15 in communicating with other providers regarding the patient's case: primary team and nursing/face to face updates Advanced Care Planning 21848 Advanced Care Planning 30 Min 74482 Advanced Care Planning Additional 30 [place] [address] IN/OBS CONSULT LVL 5,80M Patient Type New History Comprehensive Exam Comprehensive Medical Decision Making High Complexity Diagnoses Altered mental status R41.82 Weakness generalized R53.1 Delirium R41.0 Palliative care by specialist Z51.5 Advanced care planning/counseling discussion Z71.89 Additional Codes Advanced Care Planning - 91280 Advanced Care Planning 30 Min: 55796 Advanced Care Planning 30 Min ([id number]) Advanced Care Planning - 54039 Advanced Care Planning Additional 30 Min: 86740 Advanced Care Planning Additional 30 Min ([id number])
--- NOTE | 2022-10-24 07:03 | Hospitalist Progress Note ---
Date of Service October 24, 2022 Assessment & Plan (1) Stroke: Plan: acute - left thalamus, left medial temporal lobe CTA of the neck had revealed a 70% stenosis at the takeoff of the right internal carotid artery. A brain MRI had revealed small acute infarcts in the left thalamus and medial left temporal lobe. echocardiogram was negative for cardioembolic source preserved ejection fraction No atrial fibrillation identified on telemetry. She has been persistently lethargic, right sided neglect neuro recommendation - asa/plavix x 21 days, then aspirin monotherapy thereafter event monitor (30-day) post discharge to r/o PAF agree with lipitor 40mg daily (LDL 97) chronic hypertension, remains on metoprolol 25mg BID + losartan 50mg daily family agreeable to palliative care consult, set up family meeting for 10/24/22, unfortunately could not occur consider thursday possibly cont PT, OT, speech therapy (2) Acute metabolic encephalopathy: Plan: 2nd to CVA with baseline dementia cannot rule out hospital psychosis in the setting of her dementia her day-night cycle is completely flipped; per son she does this frequently at home (3) Carotid artery stenosis: Plan: right-sided 70% strokes are on the left if improves can be followed outpt by vasc surgery cont antiplatelet agents, DAPT for 21 d then aspirin cont statin (4) Type 2 diabetes mellitus with microalbuminuria: Plan: a1c noted (8.2%) cont lantus 5 units BID cont novolog SSI (5) Anemia: Plan: very mild Hb 11-12 B12, folate repeat am (6) Hypercholesterolemia: Plan: Simvastatin has been switched to a atorvastatin per neurology recommendations LDL 97 HDL 63 (7) Tenosynovitis of right wrist: Plan: 2nd to pseudogout (x-rays today with CPPD crystals) s/p IV steroids symptoms/signs now resolved no fractures on x-rays today (8) DVT prophylaxis: Plan: heparin sc Plan disposition - rehab Admission and Anticipated Discharge Date Admission Date: October 16, 2022 Subjective pt complains of pain in legs, still with right sided neglect no real complaints of other pain Physical Exam Physical Exam: patient is right-sided weakness will not look towards a right-sided room. She will have her look to the left and converse when on that side. Her strength is fairly against gravity on the right. Legs are examined without swelling, inflamed knee or ankle, no cellulitis, , seems to be musculoskeletal pain Results & Data Results & Data Vital Signs (Past 12 Hours) Vital Signs Temp Pulse Pulse Resp BP Pulse Ox O2 Del Method 10/24/22 04:00 97.7 F 72 18 118/72 95 Room Air 10/23/22 21:59 72 10/23/22 23:00 98.4 F 76 18 126/69 94 Room Air 10/23/22 22:30 Room Air PG Care Time/CCT Total # of Minutes Spent Total Time Spent with Patient: Total time spent is greater than 50% in coordination of care (as documented) at patient's floor/unit and/or counseling patient: Coding Level of Care Code 27457 SUB INP/OBS CARE 2/35MIN Diagnoses Stroke I63.9 Acute metabolic encephalopathy G93.41 Carotid artery stenosis I65.29 Type 2 diabetes mellitus with microalbuminuria E11.29; R80.9 Anemia D64.9 Hypercholesterolemia E78.00 Tenosynovitis of right wrist M65.9 DVT prophylaxis Z29.9
[2022-10-24] MEDS: INSULIN ASPART PER UNIT CHARGE SC SCH ×4 (08:52→20:25)
[2022-10-24] MEDS: ACETAMINOPHEN 325 MG TAB PO PRN ×2 (09:03→20:10)
[2022-10-24] MEDS: LANTUS PER UNIT CHARGE SQ SCH ×2 (09:03→20:25)
[2022-10-24] MEDS: METOPROLOL TARTRATE 25 MG TAB PO SCH ×2 (09:05→20:10)
[2022-10-24] MEDS: PANTOprazole 40 MG TAB PO SCH (09:05)
[2022-10-24] MEDS: HEPARIN SOD 5,000 UNIT/0.5 ML VIAL SQ SCH ×2 (09:05→20:09)
[2022-10-24] MEDS: CHOLECALCIFEROL 1,000 UNITS 25 MCG TAB PO SCH (09:06)
[2022-10-24] MEDS: ASPIRIN 81 MG ECTAB PO SCH (09:06)
[2022-10-24] MEDS: CYANOCOBALAMIN 1000 MCG/ML VIAL IM SCH (09:06)
[2022-10-24] MEDS: ATORVASTATIN 40 MG TAB PO SCH (09:07)
[2022-10-24] MEDS: CLOPIDOGREL BISULFATE 75 MG TAB PO SCH (09:08)
[2022-10-24] MEDS: DOCUSATE SODIUM 100 MG CAP PO SCH ×2 (09:09→20:10)
[2022-10-24] MEDS: LOSARTAN POTASSIUM 50 MG TAB PO SCH (09:09)
--- NOTE | 2022-10-24 11:09 | Palliative Family Discussion ---
Date of Service October 24, 2022 Patient Directed Conference Time of Meeting: telephone call with Son Gautam, medical surrogate under [place] Act 169/pt does not have an AD. this telephone call was necessary bc Gautam is a truck car and bus cleaner and was already on the road, could not come in to hospital today. Participants: Zenia Perez DNP Patient participation:pt unable Other Healthcare Provider Participation: None Meeting Location: telephone Advanced Directive available: No -per Gautam, when he tried to discuss ACP a few weeks ago, pt became angry/refused to talk about it The patient's surrogate medical decision maker participated: yes, Gautam/son Son is her medical surrogate per [place] Act 169: In the absence of a proxy or guardian, any member of the following, in descending order of priority, who is reasonably available, may make health care decisions on behalf of the patient. 1. Spouse (unless divorce is pending) 2. An adult child 3. A parent 4. An adult brother or sister 5. An adult grandchild 6. An adult who has knowledge of the patients preferences and values and is able to assess how the patient would make health care decisions. (This includes common law partnerships, close friends, etc) A family meeting was held for EZ COBB. This meeting was necessary for deter mining the appropriate course of treatment. Topics of Discussion Topics of Discussion: 1. Progressive neuro decline 2. Generalized weakness, worsening + poor nutrition + declining PS 3. Dementia like changes with worsening behav issues Other Content of Meetin. Opportunity given for participants to speak and ask questions. We discussed code status. He agrees to no code, but continue all other treatment aka treat what's treatable and fix what's fixable, he would like her to have at least a trial of rehab. We reviewed her nutrition concerns and he is not sure she would want ERNESTO but will think about it. 2. Participants were assured of attention to patient comfort. 3. Reassurance provided. 4. Support was provided for informed, good-prema decisions. 5. Emotions expressed by family were acknowledged and addressed. 6. Follow-up: Family meeting Thursday at 11am in pt room 7. Plan of Care: I spoke with Gautam the son/medical surrogate. he agreed to DNR but still wants to otherwise continue to course or treatment and see how much better she can get and we spoke about her nutrition as well, and he does not feel she would want a feeding tube but he admits he is having a very hard time "knowing where to draw the line" and states he needs us to tell him when things are not helping, getting worse or if it is time for end of life care. He tried asking her about ACP wishes a few months ago and says it made her angry so he stopped but on the whole her neuro decline has been progressive and worsen ing, along with increased anger flares/mood disturbances. He seems to be leaning towards SNF placement as an ultimate plan but is still trying to stay hopeful that if rehab helps enough maybe she can come home for a while longer. I did not bring up hospice, he was not ready. He shared that he has his daughter's graduation from nursing school today and so is unavailable for meeting but he wanted to meet on Thursday, 11am and I agreed to be available. For now, plan is: code DNR/DNI, continue treating what we can treat/fix what we can fix, escalate therapies such as PAP, abtx, if needed. Time Involved in Meeting: I spent 25 minutes overall addressing this case. I have updated primary team. Thank you for allowing us to participate in the ongoing care of this patient. Please don't hesitate to call or page with any additional concerns. Dr. Zenia Perez DNP Director, Palliative Care
[2022-10-24] MEDS ORDERED: KETOROLAC TROMETHAMINE 15 MG/ML VIAL IV ONE (17:16)
[2022-10-24] MEDS: DICLOFENAC SOD 1% GEL 100 GM TUBE EXT SCH (20:10)
--- NOTE | 2022-10-25 07:44 | Hospitalist Progress Note ---
Date of Service October 25, 2022 Assessment & Plan (1) Stroke: Plan: acute - left thalamus, left medial temporal lobe CTA of the neck had revealed a 70% stenosis at the takeoff of the right internal carotid artery. A brain MRI had revealed small acute infarcts in the left thalamus and medial left temporal lobe. echocardiogram was negative for cardioembolic source preserved ejection fraction No atrial fibrillation identified on telemetry. She has been persistently lethargic, right sided neglect, decreased and difficult oral intake neuro recommendation - asa/plavix x 21 days, then aspirin monotherapy thereafter event monitor (30-day) post discharge to r/o PAF agree with lipitor 40mg daily (LDL 97) chronic hypertension, remains on metoprolol 25mg BID + losartan 50mg daily family agreeable to palliative care consult, set up family meeting for 10/24/22, unfortunately could not occur consider thursday possibly 10/27/2022 biggest christi of discussion will be nutritional support cont PT, OT, speech therapy (2) Acute metabolic encephalopathy: Plan: 2nd to CVA with baseline dementia psychosis seems to have calmed down the patient now with right-sided neglect as a deficit from her recent strokes her day-night cycle is completely flipped; per son she does this frequently at home (3) Carotid artery stenosis: Plan: right-sided 70% strokes are on the left if improves can be followed outpt by vasc surgery cont antiplatelet agents, DAPT for 21 d then aspirin cont statin (4) Type 2 diabetes mellitus with microalbuminuria: Plan: a1c noted (8.2%) cont lantus 5 units BID cont novolog SSI (5) Anemia: Plan: very mild Hb 11-12 B12, folate repeat am (6) Hypercholesterolemia: Plan: Simvastatin has been switched to a atorvastatin per neurology recommendations LDL 97 HDL 63 (7) Tenosynovitis of right wrist: Plan: 2nd to pseudogout (x-rays today with CPPD crystals) s/p IV steroids symptoms/signs now resolved no fractures on x-rays today (8) DVT prophylaxis: Plan: heparin sc Plan disposition - rehab , discussion of goals of care 10/27/2022 Admission and Anticipated Discharge Date Admission Date: October 16, 2022 Subjective patient has no residual pain in her legs but her biggest issue continues to revolve around difficulty with significant oral intake. Dietary did reevaluate the patient's oral intake and patient is suboptimal to support her existence and previously has resisted consideration for artificial feeding by NG tube or feeding tube etc. To this end organ to reengage speech therapy there is a family meeting on October 27 to discuss goals of care. Patient is awake and conversant but seems to lack the depth of understanding of the severity of her situation and circumstance Physical Exam Physical Exam: patient is right-sided weakness will not look towards a right-sided room. She will have her look to the left and converse when on that side. Her strength is fairly against gravity on the right. eating and swallowing still continue to be a challenge with some parameters of limitations prehospital described to the family such as not wanting artificial external feeding Legs are examined without swelling, inflamed knee or ankle, no cellulitis, , seems to be musculoskeletal pain Results & Data Results & Data Vital Signs (Past 12 Hours) Vital Signs Temp Pulse Pulse Resp BP Pulse Ox O2 Del Method 10/25/22 07:25 71 10/25/22 03:01 97.9 F 71 20 95/56 L 99 Room Air 10/24/22 22:02 57 L 10/24/22 22:00 99.3 F 69 18 118/62 96 Room Air PG Care Time/CCT Total # of Minutes Spent Total Time Spent with Patient: Total time spent is greater than 50% in coordination of care (as documented) at patient's floor/unit and/or counseling patient: Coding Level of Care Code 49329 SUB INP/OBS CARE 2/35MIN Diagnoses Stroke I63.9 Acute metabolic encephalopathy G93.41 Carotid artery stenosis I65.29 Type 2 diabetes mellitus with microalbuminuria E11.29; R80.9 Anemia D64.9 Hypercholesterolemia E78.00 Tenosynovitis of right wrist M65.9 DVT prophylaxis Z29.9
[2022-10-25] MEDS: METOPROLOL TARTRATE 25 MG TAB PO SCH ×3 (08:09→23:44)
[2022-10-25] MEDS: DICLOFENAC SOD 1% GEL 100 GM TUBE EXT SCH ×2 (08:09→21:03)
[2022-10-25] MEDS: CLOPIDOGREL BISULFATE 75 MG TAB PO SCH (08:10)
[2022-10-25] MEDS: LOSARTAN POTASSIUM 50 MG TAB PO SCH (08:10)
[2022-10-25] MEDS: DOCUSATE SODIUM 100 MG CAP PO SCH ×3 (08:10→23:45)
[2022-10-25] MEDS: ATORVASTATIN 40 MG TAB PO SCH (08:10)
[2022-10-25] MEDS: ASPIRIN 81 MG ECTAB PO SCH (08:10)
[2022-10-25] MEDS: CHOLECALCIFEROL 1,000 UNITS 25 MCG TAB PO SCH (08:10)
[2022-10-25] MEDS: PANTOprazole 40 MG TAB PO SCH (08:10)
[2022-10-25] MEDS: CYANOCOBALAMIN 1000 MCG/ML VIAL IM SCH (08:10)
[2022-10-25] MEDS: HEPARIN SOD 5,000 UNIT/0.5 ML VIAL SQ SCH ×2 (08:10→21:02)
[2022-10-25] MEDS: INSULIN ASPART PER UNIT CHARGE SC SCH ×4 (08:11→21:02)
[2022-10-25] MEDS: LANTUS PER UNIT CHARGE SQ SCH ×2 (08:17→21:02)
[2022-10-25] MEDS: LACTATED RINGER'S 1,000 ML IV SCH (21:19)
[2022-10-26 06:38] LABS: BUN Creatinine Ratio 30.9 (10-20); Calcium 8.6 mg/dl (8.6-10.3); Creatinine Clr Calc Pharmacy 52.2 ml/min; Est GFR (African American) 95.8 ml/min; Est GFR (Non-African American) 82.6 ml/min; Magnesium 1.6 mg/dl (1.7-2.4); Phosphorus 2.4 mg/dl (2.5-4.9); Potassium 3.8 mmol/L (3.5-5.1)
[2022-10-26] MEDS: POLYETHYLENE (MIRALAX) 17 GM PACK PO PRN (07:59)
[2022-10-26] MEDS: CLOPIDOGREL BISULFATE 75 MG TAB PO SCH (08:00)
[2022-10-26] MEDS: ASPIRIN 81 MG ECTAB PO SCH (08:00)
[2022-10-26] MEDS: CHOLECALCIFEROL 1,000 UNITS 25 MCG TAB PO SCH (08:00)
[2022-10-26] MEDS: METOPROLOL TARTRATE 25 MG TAB PO SCH ×2 (08:00→20:44)
[2022-10-26] MEDS: ATORVASTATIN 40 MG TAB PO SCH (08:00)
[2022-10-26] MEDS: DOCUSATE SODIUM 100 MG CAP PO SCH ×2 (08:00→20:43)
[2022-10-26] MEDS: PANTOprazole 40 MG TAB PO SCH (08:01)
[2022-10-26] MEDS: LOSARTAN POTASSIUM 50 MG TAB PO SCH (08:01)
[2022-10-26] MEDS: HEPARIN SOD 5,000 UNIT/0.5 ML VIAL SQ SCH ×2 (08:01→20:43)
[2022-10-26] MEDS: CYANOCOBALAMIN 1000 MCG/ML VIAL IM SCH (08:01)
[2022-10-26] MEDS: DICLOFENAC SOD 1% GEL 100 GM TUBE EXT SCH ×2 (08:02→20:44)
[2022-10-26] MEDS: INSULIN ASPART PER UNIT CHARGE SC SCH ×4 (08:13→20:42)
[2022-10-26] MEDS: LANTUS PER UNIT CHARGE SQ SCH ×2 (08:13→20:43)
[2022-10-26] MEDS ORDERED: SODIUM PHOSPHATE 3 MMOL/1 ML INFUSION IV STA (08:34)
[2022-10-26] MEDS ORDERED: MAGNESIUM SULFATE / D5W 1 GM/100 ML BAG IV ONE (08:34)
[2022-10-26] MEDS ORDERED: SODIUM PHOSPHATE 15 MMOL in SODIUM CHLORIDE 0.9% 250 ML IV ONE (08:45)
[2022-10-26] MEDS: LACTATED RINGER'S 1,000 ML IV SCH (13:28)
--- NOTE | 2022-10-26 17:40 | Hospitalist Progress Note ---
Date of Service October 26, 2022 Assessment & Plan (1) Stroke: Plan: acute - left thalamus, left medial temporal lobe CTA of the neck had revealed a 70% stenosis at the takeoff of the right internal carotid artery. A brain MRI had revealed small acute infarcts in the left thalamus and medial left temporal lobe. echocardiogram was negative for cardioembolic source preserved ejection fraction No atrial fibrillation identified on telemetry. She has been persistently lethargic, right sided neglect, decreased and difficult oral intake, she seems to have declined 10/26/22 oral meds and intake are challenging neuro recommendation - asa/plavix x 21 days, then aspirin monotherapy thereafter event monitor (30-day) post discharge to r/o PAF agree with lipitor 40mg daily (LDL 97) chronic hypertension, remains on metoprolol 25mg BID + losartan 50mg daily family agreeable to palliative care consult, set up family meeting for 10/24/22, unfortunately could not occur consider thursday possibly 10/27/2022 biggest christi of discussion will be nutritional support (2) Acute metabolic encephalopathy: Plan: 2nd to CVA with baseline dementia psychosis seems to have calmed down the patient now with right-sided neglect as a deficit from her recent strokes her day-night cycle is completely flipped; per son she does this frequently at home (3) Carotid artery stenosis: Plan: right-sided 70% strokes are on the left if improves can be followed outpt by vasc surgery cont antiplatelet agents, DAPT for 21 d then aspirin cont statin (4) Type 2 diabetes mellitus with microalbuminuria: Plan: a1c noted (8.2%) cont lantus 5 units BID cont novolog SSI (5) Anemia: Plan: very mild Hb 11-12 B12, folate repeat am (6) Hypercholesterolemia: Plan: Simvastatin has been switched to a atorvastatin per neurology recommendations LDL 97 HDL 63 (7) Tenosynovitis of right wrist: Plan: 2nd to pseudogout (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 Patient is variably responsive and seems to lack the depth of understanding of the severity of her situation and circumstance Physical Exam Physical Exam: difficulty waking up 10/26, overall poor oral intake, continue ivf support, family meeting 10/27 Results & Data Results & Data Vital Signs (Past 12 Hours) Vital Signs Temp Pulse Pulse Resp BP Pulse Ox O2 Del Method 10/26/22 14:55 98.1 F 61 16 123/66 98 Room Air 10/26/22 11:32 97.9 F 68 16 131/74 97 Room Air 10/26/22 09:58 Room Air 10/26/22 07:23 97.9 F 69 15 130/71 99 Room Air 10/26/22 06:51 72 Laboratory Results reviewed chemistry magnesium and phos-> repleted PG Care Time/CCT Total # of Minutes Spent Total Time Spent with Patient: Total time spent is greater than 50% in coordination of care (as documented) at patient's floor/unit and/or counseling patient: Coding Level of Care Code 31739 SUB INP/OBS CARE 2/35MIN Diagnoses Stroke I63.9 Acute metabolic encephalopathy G93.41 Carotid artery stenosis I65.29 Type 2 diabetes mellitus with microalbuminuria E11.29; R80.9 Anemia D64.9 Hypercholesterolemia E78.00 Tenosynovitis of right wrist M65.9 DVT prophylaxis Z29.9
[2022-10-27] MEDS: LACTATED RINGER'S 1,000 ML IV SCH ×2 (06:08→21:46)
[2022-10-27] MEDS: INSULIN ASPART PER UNIT CHARGE SC SCH ×4 (08:03→21:29)
[2022-10-27] MEDS ORDERED: Nursing to Pharmacy Communication SCH (08:15)
[2022-10-27] MEDS: LANTUS PER UNIT CHARGE SQ SCH ×2 (08:20→21:30)
[2022-10-27] MEDS: HEPARIN SOD 5,000 UNIT/0.5 ML VIAL SQ SCH ×2 (08:47→21:27)
[2022-10-27] MEDS: DICLOFENAC SOD 1% GEL 100 GM TUBE EXT SCH ×2 (08:47→21:28)
[2022-10-27] MEDS: CYANOCOBALAMIN 1000 MCG/ML VIAL IM SCH (08:48)
--- NOTE | 2022-10-27 09:28 | Palliative Care Progress Note ---
Date of Service October 27, 2022 Assessment & Plan (1) Altered mental status: Plan: unable to safely take PO with s/s aspiration noted Unable to engage in video swallow (2) Weakness generalized: (3) Impaired swallowing: Plan: Son inquiring about feeding tube: I reviewed that artificial nutrition and hydration (ERNESTO) were originally developed to provide short-term support for patients who were acutely ill. For patients nearing/transitioning to EOL, ERNESTO is unlikely to prolong life in addition to which researchers have found that ERNESTO often leads to complications in patients nearing the end of life. Patients with advanced, life-limiting illness often lose the ability to eat and drink and/or interest in food and fluids. Like other medical interventions, it should be evaluated by weighing its benefits and burdens in light of the patient's clinical circumstances and goals of care. ERNESTO may offer benefits when administered in the setting of acute, reversible illness, or as a component of chronic disease management, when the patient can appreciate the benefits of the treatment and significant burdens are not disproportionate. Near the end of life, some widely assumed benefits of ERNESTO, such as alleviation of thirst, may be achieved by less invasive measures including good mouth care or providing ice chips. (Isak AMADOR, Shaina CUMMINGSK, Italo M. after PEG: Results of the National Confidential Enquiry into Patient Outcome and . Gastrointest Endosc. 2008;68:223-227andRichard E, Yana D, Burak S, et al. Parenteral hydration in patients with advanced cancer: A multicenter, double-blind, placebo-controlled randomized trial. J Clin Oncol. 2013;31:111-118.) (4) Delirium: (5) Advanced care planning/counseling discussion: Plan: Met with son/medical surrogate from 11am to 12pm face to face ACP and GOC discussion. We reviewed the findings of evolving, multi lacunar strokes and her impaired swallow noted this weekend when ST evaluated her at bedside - pt definitely demonstrating s/s aspiration that were to be instrumentally assessed today by video swallow, but patient is not able to participate. In discussion with ST, outlook is overall poor with limited options carlos since the Head CTA showing that lacunar infarcts are evolving and where they are is not a good sign for swallowing function; if she remains with decreased responsiveness and poor oral intake would need alternative means of feeding/hydration/medication in order to be a candidate for any speech and rehab therapies.....BUT if her brain stem infarcts continue evolving, she will continue to worsen and therefore it would be poor rehab prognosis regardless. I reviewed that PEG would still have aspiration with it but if he feels strongly about giving a trial fo ERNESTO then an interim solution is NGHT for ERNESTO x 3 days. Son in agreement, Primary team notified. Follow up family meeting at 130pm. (6) Palliative care by specialist: Plan: Met with pt son and provided overview of Palliative Medicine, a subspecialty that provides specialized medical care for people living with a serious illness by offering a focus on quality of life. Palliative Medicine is often conflated with hospice: I advised patient/family that Palliative and hospice can be partners but we are not the same. It is important to understand the difference so that we may be informed, and not afraid. Palliative Medicine works to improve QOL through reduction of symptom burden/more control over their illness, for both the patient and family. Palliative medicine clinicians are board certified, specially-trained and another member of the patient's medical care team. We often provide an extra layer of support because our care is based on the needs of the patient, not the prognosis; as such, it's appropriate at any age/advancing stage of a serious illness and can be provided along with curative treatment. Palliative Medicine clinicians are also trained in advanced communication methodologies, to facilitate complex discussions about advanced illness planning, which are needed to help assure that the treatment choices match the patient's goals, aka delivering Goal Concordant care. Finally, we discussed that hospice is a visiting nurse service that focuses on care delivered at the very end of life for patients with terminal illness, with life expectancy less than 6 month. Son states they have 4-5 family members who could help assure ATC for pt at home including several grand daughters who are in nursing or caregiver positions as well as himself and pt grandson Jonathan. He feels they would be able to manage her needs at home. I reviewed the option of adding hospice if goal is more abput comfort and QOL: We discussed the goals of hospice as a patient service and the goals of care; we discussed EOL trajectories and transitions carlos the emotional impact of realizing mortality as a concrete reality from prior abstract considerations. Pt was reassured that no matter where they are along this trajectory, they are not alone - their medical team will remain by their side through their journey. Discussed the pros/cons of accepting help when especially weakened and distressed by pain-which would also help provide relief/decrease caregiver burden/strain. I provided education about the hospice benefit: an interdisciplinary program offered by nurses, nurses aides, social workers, chaplains and a medical office asst for patients with a terminal condition and a life expectancy of less than 6 months. This is covered by Medicare at 100%/no out of pocket expense to patient and all meds/supplies needed by patient for the reason they are on hospice are paid for/covered by hospice. The goal is assure quality of life of the patient in their home setting (home, care home, inpatient hospice setting) by providing symptoms management, psychosocial and spiritual support. However, they cannot offer 24 hours care and if the family is unable to provide that care, they will have to consider personal care with out of pocket cost vs. care home placement. We discussed the goals of hospice as a patient service and the goals of care; we discussed EOL trajectories and transitions carlos the emotional impact of realizing mortality as a concrete reality from prior abstract considerations. Pt was reassured that no matter where they are along this trajectory, they are not alone - their medical team will remain by their side through their journey. Discussed the pros/cons of accepting help when especially weakened and distressed by pain-which would also help provide relief/decrease caregiver burden/strain. Son was receptive to option of hospice if NGT does not help and PEG would not be desired next step. If ERNESTO helps then son would be open to Peg with SNF rehab trial. He feels overwhelmed by all of these changes/decline but notes she has been on a declining trajectory for over a year but he did not expect things to get this bad and feels unprepared. Son asked for review of how medical surrogate [place]. reviewed ACT 169. All questions answered to his apparent satisfaction. (7) Multiple lacunar infarcts: Plan * Trial ERNESTO via NGT * if better, would consider PEG then SNF rehab per son * If no better then may move to comfort focused care with hospice at home - son wants more time to think about this * I updated nursing, primary team and CM * Follow up family meeting at 130pm with son/medical surrogate Thank you for allowing us to participate in the ongoing care of this patient. Please don't hesitate to call or page with any additional concerns. Dr. Zenia Perez DNP Director, Palliative Care Admission and Anticipated Discharge Date Admission Date: October 16, 2022 Subjective pt unable to participate in video swallow today, remains lethargic and weak, poor PO intake son/medical surrogate at bedside Review of Systems Review of Systems: Unobtainable due to cognitive status and Unobtainable due to reduced consciousness Physical Exam Physical Exam: lethargic frail appearing elderly female, lying in bed, still listing to her left lethargic, speech is garbled opens eyes slightly with name call, quickly drifts back off right hemiplegic weakness lungs diminished S1S2, irreg irreg, +murmur Abd soft, BS+ +generalized weakness pale skin, diaphoretic Results & Data Vital Signs (Past 12 Hours) Vital Signs Temp Pulse Pulse Resp BP BP Pulse Ox 10/27/22 07:46 36.8 C 69 18 128/57 L 99 10/27/22 07:45 10/27/22 06:39 76 10/27/22 04:32 36.5 C 72 20 118/55 L 96 10/27/22 00:12 66 10/26/22 23:42 36.9 C 59 L 20 106/62 98 10/26/22 22:41 O2 Del Method 10/27/22 07:46 Room Air 10/27/22 07:45 Room Air 10/27/22 06:39 10/27/22 04:32 Room Air 10/27/22 00:12 10/26/22 23:42 Room Air 10/26/22 22:41 Room Air Laboratory Results data reviewed Diagnostic Findings data reviewed PG Care Time/CCT Total # of Minutes Spent Total Time Spent: 100 Total Time Spent with Patient: Total time spent is greater than 50% in coordination of care (as documented) at patient's floor/unit and/or counseling patient: I spent 100 minutes overall addressing this case: 5 in medical data review/discussion with referring provider(s) and/or preparation for the visit 10 in direct interaction with the patient 60 Advance Care Planning/Goals of Care discussions as detailed above in note (must be >16min) 10 in subsequent review and synthesis of assessment and plan 15 in communicating with other providers regarding the patient's case: [] [place] [address] SUB INP/OBS CARE 50MIN Patient Type Established History Comprehensive Exam Comprehensive Medical Decision Making High Complexity Diagnoses Altered mental status R41.82 Weakness generalized R53.1 Impaired swallowing R13.10 Delirium R41.0 Advanced care planning/counseling discussion Z71.89 Palliative care by specialist Z51.5 Multiple lacunar infarcts I63.81
[2022-10-27] MEDS: ATORVASTATIN 40 MG TAB PO SCH (09:48)
[2022-10-27] MEDS: ASPIRIN 81 MG CHEW PO SCH (09:48)
[2022-10-27] MEDS: CHOLECALCIFEROL 1,000 UNITS 25 MCG TAB PO SCH (09:48)
[2022-10-27] MEDS: LOSARTAN POTASSIUM 50 MG TAB PO SCH (09:49)
[2022-10-27] MEDS: PANTOprazole 40 MG TAB PO SCH (09:49)
[2022-10-27] MEDS: DOCUSATE SODIUM 100 MG CAP PO SCH ×2 (09:49→21:26)
[2022-10-27] MEDS: METOPROLOL TARTRATE 25 MG TAB PO SCH ×2 (09:49→21:26)
[2022-10-27] MEDS: CLOPIDOGREL BISULFATE 75 MG TAB PO SCH (09:49)
[2022-10-27] MEDS ORDERED: FIBERSOURCE HN 1.2 CAL 1000 ML BAG GT SCH (11:45)
--- NOTE | 2022-10-27 12:28 | XRay Report ---
KUB CLINICAL HISTORY: Check tube placement COMPARISON STUDY: None. FINDINGS: Left hip arthoplasty is incidentally noted. A pelvic calcification could reflect a calcifie d fibroid. There is no evidence for a bowel obstruction. Large amount of stool within the colon and r ectum is present. No definite intraluminal catheter is identified. A possible catheter overlies the u pper abdomen. This appears to be extrinsic to the patient. IMPRESSION: 1. No definite intraluminal catheter identified. Correlation with tube placement and possible chest r adiograph is recommended. 2. Large amount of stool within the colon and rectum. ACT 112: Negative or not required by law. Electronically signed by: Zach Chang M.D. 10/27/2022 12:27 PM
--- NOTE | 2022-10-27 13:36 | XRay Report ---
KUB HISTORY: Attempted enteric tube placement check NG placement COMPARISON: 10/27/2022 at 12:00 PM FINDINGS: Moderate fecal retention. Nonobstructive bowel gas pattern. Lower abdomen is excluded from the [id number]. An enteric tube is seen coiled upon itself in the mid chest, distal tip superior t o the field of view. No renal calculi. No ureteral calculi. No pneumoperitoneum or pneumatosis. No f racture. IMPRESSION: The enteric tube is coiled over the mid chest with distal tip not imaged, likely within the proximal esophagus. Repositioning with follow-up imaging is needed. ACT 112: Negative or not required by law. The above report was generated using voice recognition software. It may contain grammatical, syntax o r spelling errors. Electronically signed by: Blaine Sherman M.D. 10/27/2022 1:34 PM
[2022-10-27] MEDS: KETOROLAC TROMETHAMINE 15 MG/ML VIAL IV PRN (17:25)
[2022-10-27] MEDS ORDERED: LORazepam 2 MG/1 ML VIAL IV PRN (18:10)
[2022-10-27] MEDS ORDERED: MoRPHine SULFATE 2 MG/ML CARP IV PRN (18:10)
[2022-10-27] MEDS ORDERED: METOPROLOL TARTRATE 1 MG/ML VIAL IV PRN (18:20)
--- NOTE | 2022-10-27 18:20 | Hospitalist Progress Note ---
Date of Service October 27, 2022 Assessment & Plan (1) Stroke: Plan: acute - left thalamus, left medial temporal lobe waxing and waining mental status changes, at times obtunded and not able to eat, others awake and trying, not consistently taking po in, attempts at feeding tube could not be placed, family does not want peg at this time. CTA of the neck had revealed a 70% stenosis at the takeoff of the right internal carotid artery. A brain MRI had revealed small acute infarcts in the left thalamus and medial left temporal lobe. echocardiogram was negative for cardioembolic source preserved ejection fraction No atrial fibrillation identified on telemetry. She has been persistently lethargic, right sided neglect, decreased and difficult oral intake, can not follow commands for speech video swallow pt has not been able to get po meds neuro recommendation - asa/plavix x 21 days, then aspirin monotherapy thereafter event monitor (30-day) post discharge to r/o PAF agree with lipitor 40mg daily (LDL 97) chronic hypertension, remains on metoprolol 25mg BID + losartan 50mg daily Palliative care meeting 10/27/2022 biggest christi of discussion will be nutritional support, family wanted to try feeding tube, but then pt work up (2) Acute metabolic encephalopathy: Plan: 2nd to CVA with baseline dementia psychosis seems to have calmed down the patient now with right-sided neglect as a deficit from her recent strokes her day-night cycle is completely flipped; per son she does this frequently at home (3) Carotid artery stenosis: Plan: right-sided 70% strokes are on the left if improves can be followed outpt by vasc surgery cont antiplatelet agents, DAPT for 21 d then aspirin cont statin (4) Type 2 diabetes mellitus with microalbuminuria: Plan: a1c noted (8.2%) cont lantus 5 units BID cont novolog SSI (5) Tenosynovitis of right wrist: Plan: 2nd to pseudogout (x-rays today with CPPD crystals) s/p IV steroids symptoms/signs now resolved no fractures on x-rays (6) DVT prophylaxis: Plan: heparin sc Plan disposition - rehab , discussion of goals of care 10/27/2022, overall outlook guarded and survivability in question Admission and Anticipated Discharge Date Admission Date: October 16, 2022 Subjective pt unable to participate in video swallow 10/27, remains lethargic and weak, poor PO intake son/medical surrogate at bedside. then pt woke up and ate applesauce challenging issue to the patient with waxing and waning mental status changes Physical Exam Physical Exam: difficulty waking up 10/27 in am, overall poor oral intake, attempted core safe could not place later pt woke up and spoke, still with dense right hemiparesis, not makeing sense with words but words spoken are clear Results & Data Results & Data Vital Signs (Past 12 Hours) Vital Signs Temp Pulse Pulse Resp BP Pulse Ox O2 Del Method 10/27/22 14:08 82 10/27/22 14:23 162 H 10/27/22 11:14 97.7 F 66 18 133/66 97 Room Air 10/27/22 07:46 98.2 F 69 18 128/57 L 99 Room Air 10/27/22 07:45 Room Air 10/27/22 06:39 76 PG Care Time/CCT Total # of Minutes Spent Total Time Spent with Patient: Total time spent is greater than 50% in coordination of care (as documented) at patient's floor/unit and/or counseling patient: Coding Level of Care Code 39961 SUB INP/OBS CARE 2/35MIN Diagnoses Stroke I63.9 Acute metabolic encephalopathy G93.41 Carotid artery stenosis I65.29 Type 2 diabetes mellitus with microalbuminuria E11.29; R80.9 Tenosynovitis of right wrist M65.9 DVT prophylaxis Z29.9
[2022-10-28 07:56] LABS: Hemoglobin 9.9 g/dl (12.0-16.0); Mean Corpuscular Hemoglobin 30.1 pg (25.0-34.0); Mean Corpuscular Hgb Conc 34.1 g/dL (32.0-36.0); Mean Corpuscular Volume 88.1 fL (80.0-100.0); Mean Platelet Volume 11.1 fL (9.4-12.4); Platelet Count 228 K/uL (130-400); RDW Coefficient of Variation 12.6 % (11.5-14.5); RDW Standard Deviation 40.8 fL (36.4-46.3); Red Blood Count 3.29 M/uL (4.20-5.40); White Blood Count 8.41 K/ul (4.8-10.8)
[2022-10-28] MEDS: CARBOHYDRATES FOR HYPOGLYCEMIA PO PRN (08:00)
[2022-10-28 08:22] LABS: Albumin Globulin Ratio 1.2 (0.9-2); BUN Creatinine Ratio 17.2 (10-20); Bilirubin,Total 0.5 mg/dl (0.2-1.0); Calcium 8.7 mg/dl (8.6-10.3); Creatinine Clr Calc Pharmacy 55.4 ml/min; Est GFR (African American) 97.7 ml/min; Est GFR (Non-African American) 84.3 ml/min; Globulin 2.6 gm/dl (2.5-4.0); Potassium 4.1 mmol/L (3.5-5.1); Total Protein 5.6 gm/dl (6.0-8.3)
[2022-10-28] MEDS: METOPROLOL TARTRATE 25 MG TAB PO SCH ×2 (09:00→20:09)
[2022-10-28] MEDS: PANTOprazole 40 MG TAB PO SCH (09:09)
[2022-10-28] MEDS: ATORVASTATIN 40 MG TAB PO SCH (09:09)
[2022-10-28] MEDS: CHOLECALCIFEROL 1,000 UNITS 25 MCG TAB PO SCH (09:09)
[2022-10-28] MEDS: DOCUSATE SODIUM 100 MG CAP PO SCH ×2 (09:09→20:14)
[2022-10-28] MEDS: ASPIRIN 81 MG CHEW PO SCH (09:10)
[2022-10-28] MEDS: LOSARTAN POTASSIUM 50 MG TAB PO SCH (09:10)
[2022-10-28] MEDS: CLOPIDOGREL BISULFATE 75 MG TAB PO SCH (09:10)
[2022-10-28] MEDS: DICLOFENAC SOD 1% GEL 100 GM TUBE EXT SCH ×2 (09:13→20:10)
[2022-10-28] MEDS: HEPARIN SOD 5,000 UNIT/0.5 ML VIAL SQ SCH ×2 (09:14→20:11)
[2022-10-28] MEDS: INSULIN ASPART PER UNIT CHARGE SC SCH ×4 (09:15→19:43)
[2022-10-28] MEDS: CYANOCOBALAMIN 1000 MCG/ML VIAL IM SCH (09:15)
[2022-10-28] MEDS: LANTUS PER UNIT CHARGE SQ SCH ×2 (09:18→20:08)
[2022-10-28] MEDS: LACTATED RINGER'S 1,000 ML IV SCH (16:00)
[2022-10-28] MEDS: POLYETHYLENE (MIRALAX) 17 GM PACK PO PRN (17:01)
[2022-10-28] MEDS: KETOROLAC TROMETHAMINE 15 MG/ML VIAL IV PRN (17:01)
[2022-10-29] MEDS: CLOPIDOGREL BISULFATE 75 MG TAB PO SCH (08:30)
[2022-10-29] MEDS: DICLOFENAC SOD 1% GEL 100 GM TUBE EXT SCH ×2 (08:48→21:14)
[2022-10-29] MEDS: LOSARTAN POTASSIUM 50 MG TAB PO SCH (08:48)
[2022-10-29] MEDS: HEPARIN SOD 5,000 UNIT/0.5 ML VIAL SQ SCH ×2 (08:48→21:13)
[2022-10-29] MEDS: ATORVASTATIN 40 MG TAB PO SCH (08:49)
[2022-10-29] MEDS: PANTOprazole 40 MG TAB PO SCH (08:49)
[2022-10-29] MEDS: CHOLECALCIFEROL 1,000 UNITS 25 MCG TAB PO SCH (08:49)
[2022-10-29] MEDS: METOPROLOL TARTRATE 25 MG TAB PO SCH ×2 (08:50→21:15)
[2022-10-29] MEDS: LACTATED RINGER'S 1,000 ML IV SCH (08:51)
[2022-10-29] MEDS: ASPIRIN 81 MG CHEW PO SCH (08:51)
[2022-10-29] MEDS: DOCUSATE SODIUM 100 MG CAP PO SCH ×2 (08:52→21:20)
[2022-10-29] MEDS: INSULIN ASPART PER UNIT CHARGE SC SCH ×4 (09:00→21:12)
[2022-10-29] MEDS: LANTUS PER UNIT CHARGE SQ SCH ×2 (09:01→21:12)
[2022-10-29] MEDS: CYANOCOBALAMIN 1000 MCG/ML VIAL IM SCH (09:01)
[2022-10-29] MEDS ORDERED: bisacodyL 10 MG SUPP PR PRN (10:06)
[2022-10-29] MEDS ORDERED: bisacodyL 10 MG SUPP PR STA (10:06)
[2022-10-29] MEDS: KETOROLAC TROMETHAMINE 15 MG/ML VIAL IV PRN (15:35)
--- NOTE | 2022-10-29 22:45 | Hospitalist Progress Note ---
Date of Service October Assessment & Plan (1) Stroke: Plan: acute - left thalamus, left medial temporal lobe waxing and waining mental status changes, at times obtunded and not able to eat, others awake and trying, not consistently taking po in, attempts at feeding tube could not be placed, family does not want peg at this time. CTA of the neck had revealed a 70% stenosis at the takeoff of the right internal carotid artery. A brain MRI had revealed small acute infarcts in the left thalamus and medial left temporal lobe. echocardiogram was negative for cardioembolic source preserved ejection fraction No atrial fibrillation identified on telemetry. She has been persistently lethargic, right sided neglect, decreased and difficult oral intake, can not follow commands for speech video swallow pt has not been able to get po meds neuro recommendation - asa/plavix x 21 days, then aspirin monotherapy thereafter event monitor (30-day) post discharge to r/o PAF agree with lipitor 40mg daily (LDL 97) chronic hypertension, remains on metoprolol 25mg BID + losartan 50mg daily Palliative care meeting 10/27/2022 biggest christi of discussion will be nutritional support, family wanted to try feeding tube, but then pt work up (2) Acute metabolic encephalopathy: Plan: 2nd to CVA with baseline dementia psychosis seems to have calmed down the patient now with right-sided neglect as a deficit from her recent strokes her day-night cycle is completely flipped; per son she does this frequently at home (3) Carotid artery stenosis: Plan: right-sided 70% strokes are on the left if improves can be followed outpt by vasc surgery cont antiplatelet agents, DAPT for 21 d then aspirin cont statin (4) Type 2 diabetes mellitus with microalbuminuria: Plan: a1c noted (8.2%) cont lantus 5 units BID cont novolog SSI (5) Tenosynovitis of right wrist: Plan: 2nd to pseudogout (x-rays today with CPPD crystals) s/p IV steroids symptoms/signs now resolved no fractures on x-rays (6) DVT prophylaxis: Plan: heparin sc Plan disposition - rehab , discussion of goals of care 10/27/2022, overall outlook guarded and survivability in question Admission and Anticipated Discharge Date Admission Date: October 16, 2022 Subjective Patient seen on rounds 2N rm 289. I met daughter Mora Lara c/ [phone] and grandson Milton. Patient appears comfortable and vital signs stable Patient has had workup for TIA, Lacunar infarcts and dementia echo bubble and MRI pt unable to participate in video swallow 10/27, remains lethargic and weak, poor PO intake son/medical surrogate at bedside. then pt woke up and ate applesauce challenging issue to the patient with waxing and waning mental status changes Physical Exam Constitutional: often somnolent, and intermittently interacts with family Respiratory: normal respiratory effort, lungs clear to auscultation Cardiovascular: RRR, no murmur, no edema Gastrointestinal (Abdomen): normal bowel sounds, soft, nontender, no hepatosplenomegaly Results & Data Results & Data Vital Signs (Past 12 Hours) Vital Signs Temp Pulse Pulse Resp BP Pulse Ox O2 Del Method 10/29/22 19:00 37.1 C 113 H 18 161/80 H 95 Room Air 10/29/22 15:52 89 10/29/22 14:40 36.8 C 110 H 20 177/96 H 95 Room Air 10/29/22 13:39 Room Air 10/29/22 10:38 36.9 C 63 16 120/64 96 Room Air PG Care Time/CCT Total # of Minutes Spent Total Time Spent with Patient: Total time spent is greater than 50% in coordination of care (as documented) at patient's floor/unit and/or counseling patient: Prolonged Care Time 33 Coding Level of Care Code 53633 SUB INP/OBS CARE 2/35MIN Diagnoses Stroke I63.9 Acute metabolic encephalopathy G93.41 Carotid artery stenosis I65.29 Type 2 diabetes mellitus with microalbuminuria E11.29; R80.9 Tenosynovitis of right wrist M65.9 DVT prophylaxis Z29.9 Time Spent (min) 33
--- NOTE | 2022-10-29 22:52 | Hospitalist Progress Note ---
Date of Service October 29, 2022 Assessment & Plan (1) Stroke: Plan: acute - left thalamus, left medial temporal lobe waxing and waining mental status changes, at times obtunded and not able to eat, others awake and trying, not consistently taking po in, attempts at feeding tube could not be placed, family does not want peg at this time. CTA of the neck had revealed a 70% stenosis at the takeoff of the right internal carotid artery. A brain MRI had revealed small acute infarcts in the left thalamus and medial left temporal lobe. echocardiogram was negative for cardioembolic source preserved ejection fraction No atrial fibrillation identified on telemetry. She has been persistently lethargic, right sided neglect, decreased and difficult oral intake, can not follow commands for speech video swallow pt has not been able to get po meds neuro recommendation - asa/plavix x 21 days, then aspirin monotherapy thereafter event monitor (30-day) post discharge to r/o PAF agree with lipitor 40mg daily (LDL 97) chronic hypertension, remains on metoprolol 25mg BID + losartan 50mg daily Palliative care meeting 10/27/2022 biggest christi of discussion will be nutritional support, family wanted to try feeding tube, but then pt work up (2) Acute metabolic encephalopathy: Plan: 2nd to CVA with baseline dementia psychosis seems to have calmed down the patient now with right-sided neglect as a deficit from her recent strokes her day-night cycle is completely flipped; per son she does this frequently at home (3) Carotid artery stenosis: Plan: right-sided 70% strokes are on the left if improves can be followed outpt by vasc surgery cont antiplatelet agents, DAPT for 21 d then aspirin cont statin (4) Type 2 diabetes mellitus with microalbuminuria: Plan: a1c noted (8.2%) cont lantus 5 units BID cont novolog SSI (5) Tenosynovitis of right wrist: Plan: 2nd to pseudogout (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 Consensus is that patient would be happy at home when ready. 10/28/2022 Patient seen on rounds 2N rm 289. I met daughter Mora Lara c/ [phone] and grandson Milton. Patient appears comfortable and vital signs stable Patient has had workup for TIA, Lacunar infarcts and dementia echo bubble and MRI pt unable to participate in video swallow 10/27, remains lethargic and weak, poor PO intake son/medical surrogate at bedside. then pt woke up and ate applesauce challenging issue to the patient with waxing and waning mental status changes Physical Exam Respiratory: normal respiratory effort, lungs clear to auscultation Cardiovascular: RRR, no murmur, no edema Gastrointestinal (Abdomen): normal bowel sounds, soft, nontender, no hepatosplenomegaly Results & Data Results & Data Vital Signs (Past 12 Hours) Vital Signs Temp Pulse Pulse Resp BP Pulse Ox O2 Del Method 10/29/22 19:00 37.1 C 113 H 18 161/80 H 95 Room Air 10/29/22 15:52 89 10/29/22 14:40 36.8 C 110 H 20 177/96 H 95 Room Air 10/29/22 13:39 Room Air PG Care Time/CCT Total # of Minutes Spent Total Time Spent with Patient: Total time spent is greater than 50% in coordination of care (as documented) at patient's floor/unit and/or counseling patient: Coding Level of Care Code 45341 SUB INP/OBS CARE 2/35MIN Diagnoses Stroke I63.9 Acute metabolic encephalopathy G93.41 Carotid artery stenosis I65.29 Type 2 diabetes mellitus with microalbuminuria E11.29; R80.9 Tenosynovitis of right wrist M65.9 DVT prophylaxis Z29.9
[2022-10-30] MEDS: LACTATED RINGER'S 1,000 ML IV SCH ×2 (00:37→18:36)
[2022-10-30] MEDS: INSULIN ASPART PER UNIT CHARGE SC SCH ×4 (09:22→22:21)
[2022-10-30] MEDS: METOPROLOL TARTRATE 25 MG TAB PO SCH ×2 (10:09→22:29)
[2022-10-30] MEDS: CHOLECALCIFEROL 1,000 UNITS 25 MCG TAB PO SCH (10:09)
[2022-10-30] MEDS: ATORVASTATIN 40 MG TAB PO SCH (10:09)
[2022-10-30] MEDS: DOCUSATE SODIUM 100 MG CAP PO SCH ×2 (10:09→22:21)
[2022-10-30] MEDS: PANTOprazole 40 MG TAB PO SCH (10:09)
[2022-10-30] MEDS: CLOPIDOGREL BISULFATE 75 MG TAB PO SCH (10:09)
[2022-10-30] MEDS: ASPIRIN 81 MG CHEW PO SCH (10:09)
[2022-10-30] MEDS: HEPARIN SOD 5,000 UNIT/0.5 ML VIAL SQ SCH ×2 (10:09→22:07)
[2022-10-30] MEDS: CYANOCOBALAMIN 1000 MCG/ML VIAL IM SCH (10:10)
[2022-10-30] MEDS: LOSARTAN POTASSIUM 50 MG TAB PO SCH (10:10)
[2022-10-30] MEDS: DICLOFENAC SOD 1% GEL 100 GM TUBE EXT SCH ×2 (10:11→22:02)
[2022-10-30] MEDS: LANTUS PER UNIT CHARGE SQ SCH ×2 (10:17→22:22)
--- NOTE | 2022-10-30 10:26 | Palliative Care Progress Note ---
Date of Service October 30, 2022 Assessment & Plan (1) Altered mental status: (2) Weakness generalized: (3) Palliative care by specialist: (4) Impaired swallowing: (5) Advanced care planning/counseling discussion: Plan I spoke with Gautam Lara/son: family preference is to bring pt home and son is asking specifically what is her neuro prognosis/what can they realistically expect? Son states he cannot make any dispo planning decisions for pt without knowing "what realistically lies ahead for her and what should we expect?" Her swallow and ability to take PO is inconsistent, she remains intermittently lethargic, still waxes/wanes in mentation. If we could please have a neuro re- eval with documentation (in case we need to submit for rehab option) as well as another bedside speech eval attempt today that would be great. Family meeting is re scheduled for tomorrow at 130pm because son would like the above questions addressed first I have updated primary tea, nursing, CM, neuro and speech therapy. Admission and Anticipated Discharge Date Admission Date: October 16, 2022 Subjective Remains intermittently lethargic PO intake poor, cannot safely and reliably take PO unable to complete further speech and swallow testing due to mentation Review of Systems Review of Systems: Unobtainable due to cognitive status and Unobtainable due to reduced consciousness Results & Data Vital Signs (Past 12 Hours) Vital Signs Temp Pulse Pulse Resp BP Pulse Ox O2 Del Method 10/30/22 07:08 36.8 C 75 16 106/58 L 94 Room Air 10/30/22 03:00 36.9 C 71 18 132/73 98 Room Air 10/30/22 00:00 110 H PG Care Time/CCT Total # of Minutes Spent Total Time Spent: 25 Total Time Spent with Patient: Total time spent is greater than 50% in coordination of care (as documented) at patient's floor/unit and/or counseling patient: C[place] [address] SUB INP/OBS CARE 1/25MIN Patient Type Established History Detailed Medical Decision Making High Complexity Diagnoses Altered mental status R41.82 Weakness generalized R53.1 Palliative care by specialist Z51.5 Impaired swallowing R13.10 Advanced care planning/counseling discussion Z71.89
--- NOTE | 2022-10-30 14:08 | Neurology Progress Note ---
Date of Service October 30, 2022 Assessment & Plan (1) Stroke: Parisa Lara is an 82 yo F now admitted since 10/16 with significant worsening of her stroke deficits. I agree with my colleague Dr. Dexter and am highly concerned that the stroke has extended and/or developed hemorrhagic transformation. I am unable to provide neurologic prognosis without additional imaging data as her deficits are not at all explained by the tiny strokes seen on 10/17 when I last saw the patient. I am very concerned about her prognosis overall given the timeframe of her symptom worsening and severity of her deficits but would appreciate the additional imaging data to better prognosticate. Otherwise management at this time should remain the same from a secondary stroke prevention perspective. We are happy to participate in the family discussion tomorrow as requested by palliative care. Subjective Telehealth Information I performed this visit using a real-time telehealth connection between my location and the patients location ([facility]). After connecting through interactive tele-video, patient was identified by name and date of and/or wristband check.Patient (or authorized healthcare account services representative) was informed that this was a telemedicine visit and it was being conducted confidentially over secure lines. My office door was closed and no one else was present in the room with me.Patient (or authorized healthcare account services representative) provided consent to proceed with the visit, expressed an understanding of privacy and security of the telemedicine visit, and gave permission to have a hospital account services representative in the room in order to assist with the visit and to conduct portions of the visit, as needed. I informed the patient (or authorized healthcare account services representative) that I reviewed their record and presented the opportunity for them to ask any questions regarding the visit today. The patient agreed to participate. Parisa Lara is an 82 yo F presenting initially on 10/16 with mild R hand weakness noticed by her family after sitting out on her porch in the heat. When I last saw her on 10/17 she was doing well and ready to be discharged. Per nursing documentation her NIHSS worsened from a 2->12 around 10/19, then again to a 15 on the 10/23 when neurology was reconsulted. 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 She is otherwise unable to contribute to the history in her current state. Palliative care has been involved after this change with plan for a family meeting tomorrow to discuss nutrition/PEG and prognosis. Per notes from my colleague on 10/23 a repeat MRI was requested due to the sudden worsening not explained by her tiny strokes in the L thalamus and temporal lobe. Review of Systems Unable to obtain, AMS Physical Exam Awake and alert, unable to answer orientation questions or reliably follow commands. Flaccid in the R face, R arm and R leg. Results & Data Vital Signs (Past 12 Hours) Vital Signs Temp Pulse Resp BP Pulse Ox O2 Del Method 10/30/22 11:27 36.8 C 75 18 130/67 97 Room Air 10/30/22 10:45 Room Air 10/30/22 07:08 36.8 C 75 16 106/58 L 94 Room Air 10/30/22 03:00 36.9 C 71 18 132/73 98 Room Air Laboratory Results Abnormal lab results 10/29/22 10/29/22 10/30/22 Range/Units 16:53 20:24 11:17 POC Glucose 193 H 283 H 103 H (70-99) mg/dl Diagnostic Findings MR brain on 10/17 - small area of ischemic in the L thalamus and L temporal lobe
--- NOTE | 2022-10-30 18:08 | Magnetic Resonance Report ---
Brain MRI WITHOUT CONTRAST HISTORY: Left-sided infarcts. Follow-up. worse NIH score / Stroke prognosis TECHNIQUE: Multiplanar multisequence MRI of the brain was performed without the use of contrast. COMPARISON STUDY: Brain MRI 10/17/2022. FINDINGS: Increase in size in the small infarcts involving the posterior limb of the left internal ca psule and medial left temporal lobe. There is also a new focus of restricted diffusion within the lef t the medial temporal lobe on image 10 measuring 17 mm consistent with an acute infarct. The midline structures are intact. Prior bilateral lens replacement again noted. The paranasal sinuses and mastoi d air cells are clear. The major vascular flow-voids at the skull base are well-maintained. There is focal areas of cytotoxic edema within the posterior limb of the left internal capsule and medial left temporal lobe corresponding to the areas of infarct. No significant mass effect or midline shift. At rophy and microvascular ischemic changes are again noted. There is no intracranial hemorrhage. John l FLAIR sequence are nondiagnostic due to the motion artifact. IMPRESSION: 1. Slight increase in size and number within the acute infarcts involving the left medial temporal lo be and posterior limb of the left internal capsule. 2. No evidence for intracranial hemorrhage. 3. No midline shift. 4. Atrophy and microvascular ischemic changes again noted. ACT 112: Negative or not required by law. Electronically signed by: Lan Shrestha M.D. 10/30/2022 6:06 PM
--- NOTE | 2022-10-30 18:21 | Communication Note ---
Date of Service: October 30, 2022 Neurology Update: Repeat MRI brain from 10/30 personally reviewed. There is slight extension of her prior stroke into the L internal capsule and L thalamus which does now explain her R sided weakness with early spasticity and her increased aphasia. With the addition of this repeat imaging her exam is better explained and I am concerned about her overall prognosis. Despite the moderate size stroke territory the location of these strokes produce significant disability. I do not suspect she would be able to live independently in the future secondary to her cognitive impairment and R sided weakness. I do think that with therapy she would be able to walk again and would likely regain functional communication skills and the ability to swallow. Swallowing function post-stroke often can take weeks or months to fully recover and often requires a temporary PEG tube to be placed to supplement nutrition and hydration in order to safely discharge the patient to rehab. We are available and will discuss these issues with the family tomorrow.
--- NOTE | 2022-10-30 23:17 | Hospitalist Progress Note ---
Date of Service October 30, 2022 Assessment & Plan (1) Stroke: Plan: acute - left thalamus, left medial temporal lobe waxing and waining mental status changes, at times obtunded and not able to eat, others awake and trying, not consistently taking po in, attempts at feeding tube could not be placed, family does not want peg at this time. CTA of the neck had revealed a 70% stenosis at the takeoff of the right internal carotid artery. A brain MRI had revealed small acute infarcts in the left thalamus and medial left temporal lobe. echocardiogram was negative for cardioembolic source preserved ejection fraction No atrial fibrillation identified on telemetry. She has been persistently lethargic, right sided neglect, decreased and difficult oral intake, can not follow commands for speech video swallow pt has not been able to get po meds neuro recommendation - asa/plavix x 21 days, then aspirin monotherapy thereafter event monitor (30-day) post discharge to r/o PAF agree with lipitor 40mg daily (LDL 97) chronic hypertension, remains on metoprolol 25mg BID + losartan 50mg daily Palliative care meeting 10/27/2022 biggest christi of discussion will be nutritional support, family wanted to try feeding tube, but then pt work up (2) Acute metabolic encephalopathy: Plan: 2nd to CVA with baseline dementia psychosis seems to have calmed down the patient now with right-sided neglect as a deficit from her recent strokes her day-night cycle is completely flipped; per son she does this frequently at home (3) Carotid artery stenosis: Plan: right-sided 70% strokes are on the left if improves can be followed outpt by vasc surgery cont antiplatelet agents, DAPT for 21 d then aspirin cont statin (4) Type 2 diabetes mellitus with microalbuminuria: Plan: a1c noted (8.2%) cont lantus 5 units BID cont novolog SSI (5) Tenosynovitis of right wrist: Plan: 2nd to pseudogout (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 Yesterday we also got on the phone with patient's brother Gautam. The issue today is prognosis. I appreciate the input of our specialty team including palliative care and neurology. An MRI without contrast is done and read out for prognostic purposes. Tomorrow meeting is scheduled with patient's son Chris daughter Mora and grandson Milton if available. MRI done without contrast reveals a slight increase in size within acute infarct in the affected area and cytotoxic edema in the posterior limb of left internal capsule but no mass effect no midline shift no hemorrhage. Review of Systems Review of Systems: Patient more communicative Neurologic: Right hemiparesis Physical Exam Cardiovascular: RRR, no murmur, no edema Neurologic: Right hemiparesis Results & Data Results & Data Vital Signs (Past 12 Hours) Vital Signs Temp Pulse Pulse Resp BP Pulse Ox O2 Del Method 10/30/22 22:26 36.3 C L 90 14 151/78 H 97 Room Air 10/30/22 19:58 37.0 C 101 H 17 133/72 99 Room Air 10/30/22 15:35 36.7 C 80 18 154/75 H 98 Room Air 10/30/22 15:21 92 H 10/30/22 11:27 36.8 C 75 18 130/67 97 Room Air PG Care Time/CCT Total # of Minutes Spent Total Time Spent with Patient: Total time spent is greater than 50% in coordination of care (as documented) at patient's floor/unit and/or counseling patient: Coding Level of Care Code 03874 SUB INP/OBS CARE 3/50MIN Diagnoses Stroke I63.9 Acute metabolic encephalopathy G93.41 Carotid artery stenosis I65.29 Type 2 diabetes mellitus with microalbuminuria E11.29; R80.9 Tenosynovitis of right wrist M65.9 DVT prophylaxis Z29.9 Time Spent (min) 50
[2022-10-31] MEDS: INSULIN ASPART PER UNIT CHARGE SC SCH ×4 (09:27→21:10)
[2022-10-31] MEDS: LANTUS PER UNIT CHARGE SQ SCH ×2 (10:59→21:09)
[2022-10-31] MEDS: ACETAMINOPHEN 325 MG TAB PO PRN (11:13)
[2022-10-31] MEDS: METOPROLOL TARTRATE 25 MG TAB PO SCH ×2 (11:14→20:07)
[2022-10-31] MEDS: LOSARTAN POTASSIUM 50 MG TAB PO SCH (11:14)
[2022-10-31] MEDS: CLOPIDOGREL BISULFATE 75 MG TAB PO SCH (11:15)
[2022-10-31] MEDS: CYANOCOBALAMIN 1000 MCG/ML VIAL IM SCH (11:18)
[2022-10-31] MEDS: ASPIRIN 81 MG CHEW PO SCH (11:20)
[2022-10-31] MEDS: LACTATED RINGER'S 1,000 ML IV SCH (11:20)
[2022-10-31] MEDS: ATORVASTATIN 40 MG TAB PO SCH (11:20)
[2022-10-31] MEDS: CHOLECALCIFEROL 1,000 UNITS 25 MCG TAB PO SCH (11:21)
[2022-10-31] MEDS: PANTOprazole 40 MG TAB PO SCH (11:21)
[2022-10-31] MEDS: HEPARIN SOD 5,000 UNIT/0.5 ML VIAL SQ SCH ×2 (11:23→20:07)
[2022-10-31] MEDS: DICLOFENAC SOD 1% GEL 100 GM TUBE EXT SCH ×2 (11:23→20:07)
[2022-10-31] MEDS: DOCUSATE SODIUM 100 MG CAP PO SCH ×2 (14:35→20:07)
--- NOTE | 2022-10-31 16:09 | Palliative Care Progress Note ---
Date of Service October 31, 2022 Assessment & Plan (1) Weakness generalized: (2) Altered mental status: (3) Impaired swallowing: (4) Palliative care by specialist: (5) Advanced care planning/counseling discussion: Plan: ACP Family mtg with son at bedside together with pt 130pm to 210pm along with Dr Khan/tele Lucy arias RN CM, joined jail by Dr Han/primary. Dr Khan provided overview of stroke evolution. where it impacted brain function, it is not curable/reversible and right hemiplegia will not reverse though with intense therapy over months she may be able to get to where she can assist in her OOB transfers and maybe stand/pivot for care. She will not regain independent waking/mobility and will require care. She will also need PEG to optimize nutrition and allow best chances for weakness to improve. I reviewed the PEG can be used for overnight feeds and she takes PO as tolerated through the day + peg for meds. Son states she had trouble with SNF food and often would not eat. I suggested they bring in her fave foods for PO during the day since overnight = PEG feeds. I also suggested they stay engaged in her care, be there for mealtimes and assist with feeding since she seems to eat better when they are present. Pt and son indicated pref for SNF rehab + PEG. Advised we would consult surgery. When asked directly if she wanted to go to SNF and get PEG pt replied "Yes, I want that" and then indicated wanting son to make all decisions. SOn feels he wants to try therapy but worries bc she never does well away from home and with family as caregivers. She hated her last SNF admission and was angry with family for pacing her there. However he wants to see if she can get better. Approx an hour later, son saw me walking in hallway and asked to speak; we spoke for another 20min: . He says they spoke more as family. After careful consideration of overall potential for improvement + her known preferences + their family desire to care for her, they decided against SNF, no rehab and no PEG. They want to bring her home. They will have at least 5 family members who in shifts can give ATC care. Son asks if they can have help with bathing. we spoke about hospice: We discussed the goals of hospice as a patient service and the goals of care; we discussed EOL trajectories and transitions carlos the emotional impact of realizing mortality as a concrete reality from prior abstract considerations. Pt was reassured that no matter where they are along this trajectory, they are not alone - their medical team will remain by their side through their journey. Discussed the pros/cons of accepting help when especially weakened and distressed by pain-which would also help provide relief/decrease caregiver burden/strain. I provided education about the hospice benefit: an interdisciplinary program off ered by nurses, nurses aides, social workers, chaplains and a medical typist for patients with a terminal condition and a life expectancy of less than 6 months. This is covered by Medicare at 100%/no out of pocket expense to patient and all meds/supplies needed by patient for the reason they are on hospice are paid for/covered by hospice. The goal is assure quality of life of the patient in their home setting (home, fdc, inpatient hospice setting) by providing symptoms management, psychosocial and spiritual support. However, they cannot offer 24 hours care and if the family is unable to provide that care, they will have to consider personal care with out of pocket cost vs. fdc placement. We discussed the goals of hospice as a patient service and the goals of care; we discussed EOL trajectories and transitions carlos the emotional impact of realizing mortality as a concrete reality from prior abstract considerations. Pt was reassured that no matter where they are along this trajectory, they are not alone - their medical team will remain by their side through their journey. Discussed the pros/cons of accepting help when especially weakened and distressed by pain-which would also help provide relief/decrease caregiver burden/strain. He would like a list of hospice agencies to review with family. He feels the ones who work in healthcare may have preferences. Heidi will provide list and the family will update her with their agency choice on Thursday. ACP time 65min face to face Plan * Home with hospice next week, see above ACP discussion * TS 65min in ACP + 30min with pt/clinical care Admission and Anticipated Discharge Date Admission Date: October 16, 2022 Subjective mentation waxes and wanes a little more alert tis morning family meeting this afternoon 130pm offers no complaints denies acute pain refusing PO at times, refusing meds at times would not engage with PT or ST Review of Systems Review of Systems: All systems reviewed & are unremarkable except as noted in Subjective Physical Exam Physical Exam: lethargic frail appearing elderly female, OOB to chair, listing to right, +right hemiplegia lethargic, speech is less garbled perrla right hemiplegic weakness lungs diminished S1S2, irreg irreg, +murmur Abd soft, BS+ +generalized weakness pale skin, diaphoretic slow to answer but can reply with some appropriateness to simple questions Results & Data Vital Signs (Past 12 Hours) Vital Signs Temp Pulse Pulse Resp BP Pulse Ox O2 Del Method 10/31/22 15:20 73 10/31/22 11:56 36.6 C 89 16 133/69 96 Room Air 10/31/22 08:24 36.8 C 84 16 157/83 H 97 Room Air 10/31/22 07:55 71 10/31/22 04:00 36.8 C 74 18 147/85 H 100 Room Air Laboratory Results reviewed Diagnostic Findings reviewed PG Care Time/CCT Total # of Minutes Spent Total Time Spent: 95 Total Time Spent with Patient: Total time spent is greater than 50% in coordination of care (as documented) at patient's floor/unit and/or counseling patient: Advanced Care Planning 80190 Advanced Care Planning 30 Min 19268 Advanced Care Planning Additional 30 Min [place] [address] SUB INP/OBS CARE 3/50MIN Patient Type Established History Comprehensive Exam Comprehensive Medical Decision Making High Complexity Diagnoses Weakness generalized R53.1 Altered mental status R41.82 Impaired swallowing R13.10 Palliative care by specialist Z51.5 Advanced care planning/counseling discussion Z71.89 Additional Codes Advanced Care Planning - 84766 Advanced Care Planning 30 Min: 97162 Advanced Care Planning 30 Min ([id number]) Advanced Care Planning - 37026 Advanced Care Planning Additional 30 Min: 61150 Advanced Care Planning Additional 30 Min ([id number])
[2022-11-01] MEDS: LACTATED RINGER'S 1,000 ML IV SCH ×2 (05:17→20:54)
[2022-11-01] MEDS: CYANOCOBALAMIN 1000 MCG/ML VIAL IM SCH (08:28)
[2022-11-01] MEDS: DICLOFENAC SOD 1% GEL 100 GM TUBE EXT SCH ×2 (08:28→20:55)
[2022-11-01] MEDS: HEPARIN SOD 5,000 UNIT/0.5 ML VIAL SQ SCH ×2 (08:29→20:55)
[2022-11-01] MEDS: LANTUS PER UNIT CHARGE SQ SCH ×2 (08:32→21:20)
[2022-11-01] MEDS: INSULIN ASPART PER UNIT CHARGE SC SCH ×4 (08:33→21:20)
[2022-11-01] MEDS: CLOPIDOGREL BISULFATE 75 MG TAB PO SCH (10:20)
[2022-11-01] MEDS: ATORVASTATIN 40 MG TAB PO SCH (10:20)
[2022-11-01] MEDS: ASPIRIN 81 MG CHEW PO SCH (10:20)
[2022-11-01] MEDS: CHOLECALCIFEROL 1,000 UNITS 25 MCG TAB PO SCH (10:20)
[2022-11-01] MEDS: DOCUSATE SODIUM 100 MG CAP PO SCH ×2 (10:21→20:57)
[2022-11-01] MEDS: PANTOprazole 40 MG TAB PO SCH (10:21)
[2022-11-01] MEDS: METOPROLOL TARTRATE 25 MG TAB PO SCH ×2 (10:21→20:57)
[2022-11-01] MEDS: LOSARTAN POTASSIUM 50 MG TAB PO SCH (10:21)
--- NOTE | 2022-11-01 22:34 | Hospitalist Progress Note ---
Date of Service October 31, 2022 Assessment & Plan Admission and Anticipated Discharge Date Admission Date: October 16, 2022 Subjective Date of service October 31, 2022 Patient seen on hospitalist rounds And this includes discussions multidisciplinary with Neurology and palliative care nursing and case management The goal of which is to determine plan of care with patient's son and daughter's input as well as grandson. It appears that patient can swallow and does eat but Not enough to provide sufficient energy for effective rehab. Therefore the discussion of PEG tube for feeding along with recreational eating was discussed and positive for family to make decision. Review of Systems Review of Systems: Patient more communicative Neurologic: Right hemiparesis Physical Exam Respiratory: normal respiratory effort, lungs clear to auscultation Cardiovascular: RRR, no murmur, no edema Gastrointestinal (Abdomen): normal bowel sounds, soft, nontender, no hepatosplenomegaly Skin: Warm and dry intact Neurologic: Right hemiparesis and hemineglect Results & Data Results & Data Vital Signs (Past 12 Hours) Vital Signs Temp Pulse Pulse Resp BP Pulse Ox O2 Del Method 11/01/22 20:00 36.8 C 101 H 20 182/85 H 94 Room Air 11/01/22 15:39 87 11/01/22 15:31 36.8 C 91 H 20 156/73 H 94 Room Air 11/01/22 11:48 36.7 C 83 20 146/67 H 97 Room Air PG Care Time/CCT Total # of Minutes Spent Total Time Spent with Patient: Total time spent is greater than 50% in coordination of care (as documented) at patient's floor/unit and/or counseling patient: Coding Level of Care Code 15019 SUB INP/OBS CARE 2/35MIN Diagnoses Time Spent (min) 42
--- NOTE | 2022-11-01 22:41 | Hospitalist Progress Note ---
Date of Service November 01, 2022 Assessment & Plan (1) Stroke: Plan: acute - left thalamus, left medial temporal lobe waxing and waining mental status changes, at times obtunded and not able to eat, others awake and trying, not consistently taking po in, attempts at feeding tube could not be placed, family does not want peg at this time. CTA of the neck had revealed a 70% stenosis at the takeoff of the right internal carotid artery. A brain MRI had revealed small acute infarcts in the left thalamus and medial left temporal lobe. echocardiogram was negative for cardioembolic source preserved ejection fraction No atrial fibrillation identified on telemetry. She has been persistently lethargic, right sided neglect, decreased and difficult oral intake, can not follow commands for speech video swallow pt has not been able to get po meds neuro recommendation - asa/plavix x 21 days, then aspirin monotherapy thereafter event monitor (30-day) post discharge to r/o PAF agree with lipitor 40mg daily (LDL 97) chronic hypertension, remains on metoprolol 25mg BID + losartan 50mg daily Palliative care meeting 10/27/2022 biggest christi of discussion will be nutritional support, family wanted to try feeding tube, but then pt work up (2) Acute metabolic encephalopathy: Plan: 2nd to CVA with baseline dementia psychosis seems to have calmed down the patient now with right-sided neglect as a deficit from her recent strokes her day-night cycle is completely flipped; per son she does this frequently at home (3) Carotid artery stenosis: Plan: right-sided 70% strokes are on the left if improves can be followed outpt by vasc surgery cont antiplatelet agents, DAPT for 21 d then aspirin cont statin (4) Type 2 diabetes mellitus with microalbuminuria: Plan: a1c noted (8.2%) cont lantus 5 units BID cont novolog SSI Admission and Anticipated Discharge Date Admission Date: October 16, 2022 Anticipated date of discharge: 11/03/22 Subjective Patient is much more animated today asking questions but still has difficulty with fluency and word finding. So far patient has been tolerating oral intake of medications and some intake of food and drink. Physical Exam Physical Exam: Normocephalic atraumatic Constitutional: WD/WN, vitals as above Neck: No JVD Respiratory: Clear Cardiovascular: Irregularly irregular Gastrointestinal (Abdomen): normal bowel sounds, soft, nontender, no hepatosplenomegaly Results & Data Results & Data Vital Signs (Past 12 Hours) Vital Signs Temp Pulse Pulse Resp BP Pulse Ox O2 Del Method 11/01/22 20:00 36.8 C 101 H 20 182/85 H 94 Room Air 11/01/22 15:39 87 11/01/22 15:31 36.8 C 91 H 20 156/73 H 94 Room Air 11/01/22 11:48 36.7 C 83 20 146/67 H 97 Room Air PG Care Time/CCT Total # of Minutes Spent Total Time Spent with Patient: Total time spent is greater than 50% in coordination of care (as documented) at patient's floor/unit and/or counseling patient: Coding Level of Care Code 98519 SUB INP/OBS CARE 2/35MIN Diagnoses Stroke I63.9 Acute metabolic encephalopathy G93.41 Carotid artery stenosis I65.29 Type 2 diabetes mellitus with microalbuminuria E11.29; R80.9 Time Spent (min) 35
[2022-11-02] MEDS: CARBOHYDRATES FOR HYPOGLYCEMIA PO PRN (08:04)
[2022-11-02] MEDS: INSULIN ASPART PER UNIT CHARGE SC SCH ×4 (08:57→21:21)
[2022-11-02] MEDS: LANTUS PER UNIT CHARGE SQ SCH (09:49)
[2022-11-02] MEDS: HEPARIN SOD 5,000 UNIT/0.5 ML VIAL SQ SCH ×2 (09:51→21:21)
[2022-11-02] MEDS: CYANOCOBALAMIN 1000 MCG/ML VIAL IM SCH (09:51)
[2022-11-02] MEDS: DICLOFENAC SOD 1% GEL 100 GM TUBE EXT SCH ×2 (09:51→21:20)
[2022-11-02] MEDS: CLOPIDOGREL BISULFATE 75 MG TAB PO SCH (09:52)
[2022-11-02] MEDS: ASPIRIN 81 MG CHEW PO SCH (09:52)
[2022-11-02] MEDS: LOSARTAN POTASSIUM 50 MG TAB PO SCH (09:52)
[2022-11-02] MEDS: METOPROLOL TARTRATE 25 MG TAB PO SCH ×2 (09:53→21:22)
[2022-11-02] MEDS: ATORVASTATIN 40 MG TAB PO SCH (13:00)
[2022-11-02] MEDS: PANTOprazole 40 MG TAB PO SCH (13:01)
[2022-11-02] MEDS: DOCUSATE SODIUM 100 MG CAP PO SCH ×2 (13:01→21:22)
[2022-11-02] MEDS: CHOLECALCIFEROL 1,000 UNITS 25 MCG TAB PO SCH (13:01)
[2022-11-02] MEDS: LACTATED RINGER'S 1,000 ML IV SCH (13:40)
--- NOTE | 2022-11-03 00:03 | Hospitalist Progress Note ---
Date of Service November 02, 2022 DOS October Assessment & Plan (1) Stroke: Plan: acute - left thalamus, left medial temporal lobe waxing and waining mental status changes, at times obtunded and not able to eat, others awake and trying, not consistently taking po in, attempts at feeding tube could not be placed, family does not want peg at this time. CTA of the neck had revealed a 70% stenosis at the takeoff of the right internal carotid artery. A brain MRI had revealed small acute infarcts in the left thalamus and medial left temporal lobe. echocardiogram was negative for cardioembolic source preserved ejection fraction No atrial fibrillation identified on telemetry. She has been persistently lethargic, right sided neglect, decreased and difficult oral intake, can not follow commands for speech video swallow pt has not been able to get po meds neuro recommendation - asa/plavix x 21 days, then aspirin monotherapy thereafter event monitor (30-day) post discharge to r/o PAF agree with lipitor 40mg daily (LDL 97) chronic hypertension, remains on metoprolol 25mg BID + losartan 50mg daily Palliative care meeting 10/27/2022 biggest christi of discussion will be nutritional support, family wanted to try feeding tube, but then pt work up (2) Acute metabolic encephalopathy: Plan: 2nd to CVA with baseline dementia psychosis seems to have calmed down the patient now with right-sided neglect as a deficit from her recent strokes her day-night cycle is completely flipped; per son she does this frequently at home (3) Carotid artery stenosis: Plan: right-sided 70% strokes are on the left if improves can be followed outpt by vasc surgery cont antiplatelet agents, DAPT for 21 d then aspirin cont statin (4) Type 2 diabetes mellitus with microalbuminuria: Plan: a1c noted (8.2%) cont lantus 5 units BID cont novolog SSI Admission and Anticipated Discharge Date Admission Date: October 16, 2022 Subjective Patient is much more animated today asking questions but still has difficulty with fluency and word finding. So far patient has been tolerating oral intake of medications and some intake of food and drink. Physical Exam Constitutional: WD/WN, vitals as above Eyes: PERRL, conjunctivae normal, anicteric sclerae ENMT: external ear and nose normal, oropharynx normal Respiratory: normal respiratory effort, lungs clear to auscultation Cardiovascular: RRR, no murmur, no edema Gastrointestinal (Abdomen): normal bowel sounds, soft, nontender, no hepatosplenomegaly Musculoskeletal: passive ROM Skin: warm and dry Neurologic: Right hemiparesis and hemineglect Psychiatric: thought processes improved Results & Data Results & Data Vital Signs (Past 12 Hours) Vital Signs Temp Pulse Pulse Resp BP Pulse Ox O2 Del Method 11/02/22 22:16 83 11/02/22 23:24 37.1 C 70 20 159/74 H 95 Room Air 11/02/22 19:48 37.4 C 73 20 172/96 H 95 Room Air 11/02/22 16:27 76 11/02/22 15:00 36.7 C 81 18 136/67 95 Room Air PG Care Time/CCT Total # of Minutes Spent Total Time Spent with Patient: Total time spent is greater than 50% in coordination of care (as documented) at patient's floor/unit and/or counseling patient: Coding Level of Care Code 77737 SUB INP/OBS CARE 2/35MIN Diagnoses Stroke I63.9 Acute metabolic encephalopathy G93.41 Carotid artery stenosis I65.29 Type 2 diabetes mellitus with microalbuminuria E11.29; R80.9 Time Spent (min) 35
[2022-11-03] MEDS: LACTATED RINGER'S 1,000 ML IV SCH ×2 (05:43→22:04)
[2022-11-03] MEDS: INSULIN ASPART PER UNIT CHARGE SC SCH ×4 (08:49→21:03)
[2022-11-03] MEDS: LOSARTAN POTASSIUM 50 MG TAB PO SCH (08:50)
[2022-11-03] MEDS: PANTOprazole 40 MG TAB PO SCH (08:52)
[2022-11-03] MEDS: ASPIRIN 81 MG CHEW PO SCH (08:52)
[2022-11-03] MEDS: METOPROLOL TARTRATE 25 MG TAB PO SCH ×2 (08:52→21:02)
[2022-11-03] MEDS: DOCUSATE SODIUM 100 MG CAP PO SCH ×2 (08:52→21:01)
[2022-11-03] MEDS: CLOPIDOGREL BISULFATE 75 MG TAB PO SCH (08:53)
[2022-11-03] MEDS: CHOLECALCIFEROL 1,000 UNITS 25 MCG TAB PO SCH (08:53)
[2022-11-03] MEDS: ATORVASTATIN 40 MG TAB PO SCH (08:54)
[2022-11-03] MEDS: DICLOFENAC SOD 1% GEL 100 GM TUBE EXT SCH ×2 (08:54→21:02)
[2022-11-03] MEDS: LANTUS PER UNIT CHARGE SQ SCH (08:55)
[2022-11-03] MEDS: CYANOCOBALAMIN 1000 MCG/ML VIAL IM SCH (08:55)
[2022-11-03] MEDS: HEPARIN SOD 5,000 UNIT/0.5 ML VIAL SQ SCH ×2 (08:55→21:02)
[2022-11-03] MEDS: MoRPHine SULFATE 4 MG/ML 1 ML CARP\\VIAL IV PRN (14:13)
[2022-11-03] MEDS: ACETAMINOPHEN 325 MG TAB PO PRN (21:01)
[2022-11-04 08:43] LABS: Mean Corpuscular Hgb Conc 33.3 g/dL (32.0-36.0); Mean Corpuscular Volume 90.1 fL (80.0-100.0); Mean Platelet Volume 10.3 fL (9.4-12.4); Platelet Count 289 K/uL (130-400); RDW Coefficient of Variation 13.2 % (11.5-14.5); Red Blood Count 3.33 M/uL (4.20-5.40)
[2022-11-04] MEDS: CHOLECALCIFEROL 1,000 UNITS 25 MCG TAB PO SCH (08:57)
[2022-11-04] MEDS: ATORVASTATIN 40 MG TAB PO SCH (08:57)
[2022-11-04] MEDS: ASPIRIN 81 MG CHEW PO SCH (08:58)
[2022-11-04] MEDS: CLOPIDOGREL BISULFATE 75 MG TAB PO SCH (08:58)
[2022-11-04] MEDS: METOPROLOL TARTRATE 25 MG TAB PO SCH ×2 (08:58→21:11)
[2022-11-04] MEDS: PANTOprazole 40 MG TAB PO SCH (08:58)
[2022-11-04] MEDS: DOCUSATE SODIUM 100 MG CAP PO SCH (08:58)
[2022-11-04] MEDS: CYANOCOBALAMIN 1000 MCG/ML VIAL IM SCH (08:58)
[2022-11-04] MEDS: LOSARTAN POTASSIUM 50 MG TAB PO SCH (08:58)
[2022-11-04] MEDS: INSULIN ASPART PER UNIT CHARGE SC SCH ×3 (08:59→17:20)
[2022-11-04] MEDS: HEPARIN SOD 5,000 UNIT/0.5 ML VIAL SQ SCH (08:59)
[2022-11-04] MEDS: DICLOFENAC SOD 1% GEL 100 GM TUBE EXT SCH ×2 (08:59→21:16)
[2022-11-04 09:00] LABS: BUN Creatinine Ratio 14.8 (10-20); Calcium 8.6 mg/dl (8.6-10.3); Creatinine Clr Calc Pharmacy 58.2 ml/min; Est GFR (African American) 99.2 ml/min; Est GFR (Non-African American) 85.6 ml/min; Potassium 3.8 mmol/L (3.5-5.1)
[2022-11-04] MEDS: LANTUS PER UNIT CHARGE SQ SCH (09:07)
--- NOTE | 2022-11-04 12:08 | Hospitalist Progress Note ---
Date of Service November 03, 2022 DOS November 03, 2022 Assessment & Plan (1) Multiple lacunar infarcts: (2) Advanced care planning/counseling discussion: (3) Acute metabolic encephalopathy: (4) History of TIA (transient ischemic attack): (5) Dementia: (6) Type 2 diabetes mellitus with microalbuminuria: Plan During new treatment goals, presents and appears that patient would be going home with hospice. Admission and Anticipated Discharge Date Admission Date: October 16, 2022 Anticipated date of discharge: 12/06/22 (1) Multiple lacunar infarcts: (2) Advanced care planning/counseling discussion: (3) Acute metabolic encephalopathy: (4) History of TIA (transient ischemic attack): (5) Dementia: (6) Type 2 diabetes mellitus with microalbuminuria: Plan During new treatment goals, presents and appears that patient would be going home with hospice. Subjective Essentially is the same as last evening when she was much more animated bright and communicative. Right hemiparesis and hemineglect persists. The question of diagnosis and prognosis was pursued and medical meeting with colton vitale recently. Physical Exam Physical Exam: Normocephalic atraumatic Constitutional: WD/WN, vitals as above Eyes: PERRL, conjunctivae normal, anicteric sclerae ENMT: external ear and nose normal, oropharynx normal Respiratory: normal respiratory effort, lungs clear to auscultation Cardiovascular: RRR, no murmur, no edema Gastrointestinal (Abdomen): normal bowel sounds, soft, nontender, no hepatosplenomegaly Results & Data Results & Data Vital Signs (Past 12 Hours) Vital Signs Temp Pulse Pulse Resp BP Pulse Ox O2 Del Method 11/04/22 10:57 36.9 C 88 18 161/68 H 95 Room Air 11/04/22 07:58 36.9 C 78 18 138/66 98 Room Air 11/04/22 07:05 90 11/04/22 04:00 37.0 C 81 20 158/69 H 95 Room Air PG Care Time/CCT Total # of Minutes Spent Total Time Spent with Patient: Total time spent is greater than 50% in coordination of care (as documented) at patient's floor/unit and/or counseling patient: Coding Level of Care Code 76544 SUB INP/OBS CARE 1/25MIN Diagnoses Multiple lacunar infarcts I63.81 Advanced care planning/counseling discussion Z71.89 Acute metabolic encephalopathy G93.41 History of TIA (transient ischemic attack) Z86.73 Dementia F03.90 Type 2 diabetes mellitus with microalbuminuria E11.29; R80.9 Time Spent (min) 25
[2022-11-04] MEDS: LACTATED RINGER'S 1,000 ML IV SCH (12:47)
[2022-11-04] MEDS: MoRPHine SULFATE 4 MG/ML 1 ML CARP\\VIAL IV PRN (17:00)
[2022-11-04] MEDS ORDERED: methylPREDNISolone 20 MG in SYRINGE 0 ML IV STA (17:03)
--- NOTE | 2022-11-04 17:05 | Hospitalist Progress Note ---
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 could very easily have pseudogout of L knee. will Rx with steroids --> solumedrol 20mg IV x 1 now. if she has a positive response will repeat again in am. morphine IV prn as well. (2) Dysphagia: Plan: 2nd to strokes and/or dementia. PEG declined by family. (3) Advanced care planning/counseling discussion: Plan: I spoke with pt's son by phone. He confirmed the plan is home with hospice at discharge. Explained that she continues to do poorly with failure to thrive, little appetite, difficulty taking meds, etc. He voiced understanding. Will focus on comfort until her d/c. Discontinue any nonessential medications. Discontinue insulins. (4) Acute metabolic encephalopathy: Plan: Ongoing (5) Stroke: Plan: multiple acute CVAs at time of admission ongoing hemiplegia on right likely embolic from a.fib (6) Dementia: Plan: advanced (7) Type 2 diabetes mellitus with microalbuminuria: Plan: stop insulins (8) Hypercholesterolemia: Plan: stop statin - transitioning to hospice (9) Hypertension: Plan: stop anti-hypertensives - transitioning to hospice (10) Carotid artery stenosis: (11) Atrial fibrillation: Plan: numerous episodes of rapid a.fib we are transitioning to hospice - thus, deferring on anticoagulation, rate controlling meds, etc Plan son updated by phone focus on comfort until her hospital discharge Admission and Anticipated Discharge Date Admission Date: October 16, 2022 Subjective according to staff Mrs Lara is eating / drinking very little it is difficult to get medications into her she has had rapid a.fib multiple times on telemetry overnight and today during my assessment she was very uncomfortable, grimacing, holding her left knee in pain she shook her head yes when asked if her L knee was hurting when asked if she was in pain in other places she shook her head "yes" but could not tell me specific areas otherwise she was altered and could not provide other history nurses report she has been uncomfortable much of the day Review of Systems Review of Systems: Unobtainable due to cognitive status Physical Exam Physical Exam: gen - altered, uncomfortable, right sided neglect mouth - MM dry neck - no JVD heart - irregular, tachy, s1 s2, no murmur lungs - CTA b/l abd - soft NT ND BS+ musculo - left knee tender to palpation; mild effusion; slightly warm neuro - right sided hemiplegia ext - pulses 2+ b/l feet psych - oriented to person only Results & Data Results & Data Vital Signs (Past 12 Hours) Vital Signs Temp Pulse Pulse Resp BP Pulse Ox O2 Del Method 11/04/22 14:37 36.6 C 115 H 20 188/91 H 96 Room Air 11/04/22 10:57 36.9 C 88 18 161/68 H 95 Room Air 11/04/22 07:58 36.9 C 78 18 138/66 98 Room Air 11/04/22 07:05 90 Laboratory Results Laboratory Results - last 24 hr 11/03/22 11/04/22 11/04/22 20:08 07:53 08:17 WBC 9.10 RBC 3.33 L Hgb 10.0 L Hct 30.0 L MCV 90.1 MCH 30.0 MCHC 33.3 RDW Std Deviation 43.0 RDW Coeff of Nisha 13.2 Plt Count 289 MPV 10.3 Sodium Potassium Chloride Carbon Dioxide Anion Gap BUN Creatinine Est Cr Clr Drug Dosing Est GFR ( Amer) Est GFR (Non-Af Amer) BUN/Creatinine Ratio Glucose POC Glucose 200 H 143 H Calcium 11/04/22 11/04/22 11/04/22 08:17 12:01 16:37 WBC RBC Hgb Hct MCV MCH MCHC RDW Std Deviation RDW Coeff of Nisha Plt Count MPV Sodium 138 Potassium 3.8 Chloride 101 Carbon Dioxide 28 Anion Gap 9 BUN 9 Creatinine 0.61 Est Cr Clr Drug Dosing 58.2 Est GFR ( Amer) 99.2 Est GFR (Non-Af Amer) 85.6 BUN/Creatinine Ratio 14.8 Glucose 146 H POC Glucose 214 H 61 L* Calcium 8.6 11/04/22 17:27 WBC RBC Hgb Hct MCV MCH MCHC RDW Std Deviation RDW Coeff of Nisha Plt Count MPV Sodium Potassium Chloride Carbon Dioxide Anion Gap BUN Creatinine Est Cr Clr Drug Dosing Est GFR ( Amer) Est GFR (Non-Af Amer) BUN/Creatinine Ratio Glucose POC Glucose 186 H Calcium PG Care Time/CCT Total # of Minutes Spent Total Time Spent with Patient: Total time spent is greater than 50% in coordination of care (as documented) at patient's floor/unit and/or counseling patient: Coding Level of Care Code 87093 SUB INP/OBS CARE 2/35MIN Diagnoses Left knee pain M25.562 Dysphagia R13.10 Advanced care planning/counseling discussion Z71.89 Acute metabolic encephalopathy G93.41 Stroke I63.9 Dementia F03.90 Type 2 diabetes mellitus with microalbuminuria E11.29; R80.9 Hypercholesterolemia E78.00 Hypertension I10 Carotid artery stenosis I65.29 Atrial fibrillation I48.91
[2022-11-04] MEDS ORDERED: ALUMINUM/MAGNESIUM SUSP 30 ML UDC PO PRN (20:05)
[2022-11-05] MEDS ORDERED: methylPREDNISolone 20 MG in SYRINGE 0 ML IV ONE (09:15)
[2022-11-05] MEDS: PANTOprazole 40 MG TAB PO SCH (09:32)
[2022-11-05] MEDS: METOPROLOL TARTRATE 25 MG TAB PO SCH (09:32)
[2022-11-05] MEDS: DICLOFENAC SOD 1% GEL 100 GM TUBE EXT SCH (09:32)
--- NOTE | 2022-11-05 14:57 | Discharge Summary ---
Date of Service November 05, 2022 Admission HPI Per Admitting Provider 82 year old female with a past medical history of dementia, HTN, HLD, DM2, TIA 04/2021, iron def anemia, osteoporosis, presenting with 1 week of confusion, left eye drooping, trouble walking. 1 week ago she was sitting on her porch outside in the heat. She became lethargic and family took her inside. Since then family has noted that she has been confused, not acting like herself, left eye has been drooping and has been having trouble walking. She was seen by her PCP on 10/13 for an AWV. Documentation from that visit reviewed and the recent episode of weakness that improved with sitting inside in the cool. Grandson is at bedside with her. He states that she had a fall in the kitchen after this episode of weakness and has been complaining of right sided hip pain. Has continue weakness and confusion. Lives with son and grandson in 2 story house. Her bedroom, bathroom and kitchen are on the second story. Spoke with son, Gautam, who is in the process of becoming her POA. ED work-up significant for: Head CT without acute intracranial process, CT cervical spine without acute findings. CXR, XR Hip/Pelvis without acute process per my review. Radiology read still pending. Discharge Exam gen - altered, uncomfortable, right sided neglect mouth - MM dry neck - no JVD heart - irregular, tachy, s1 s2, no murmur lungs - CTA b/l abd - soft NT ND BS+ musculo - left knee tender to palpation; mild effusion; slightly warm neuro - right sided hemiplegia ext - pulses 2+ b/l feet psych - oriented to person only Discharge Data Allergies Allergy/AdvReac Type Severity Reaction Status Date / Time nickel Allergy Intermediate Rash Verified 10/16/22 20:05 Consultations 10/16/22 20:22 ED Decision to Admit Stat 10/16/22 23:38 Consult Neurology Routine 10/22/22 18:08 Consult Neurology Routine 10/22/22 18:28 Consult Palliative Care Routine Ordered Studies 10/16/22 19:07 CT head/brain wo con Stat 10/16/22 19:08 CT cervical spine wo con Stat 10/17/22 00:24 MR brain wo/w con Routine 10/19/22 18:25 CT head/brain wo con Stat 10/21/22 10:19 CT angio head w con Routine CT angio neck with con Routine 10/30/22 15:19 MRI Brain [MR brain wo con] Stat Hospital Course (1) Left knee pain: 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 could very easily have pseudogout of L knee. will Rx with steroids --> solumedrol 20mg IV x 1 now. if she has a positive response will repeat again in am. morphine IV prn as well. (2) Dysphagia: 2nd to strokes and/or dementia. PEG declined by family. (3) Advanced care planning/counseling discussion: I spoke with pt's son by phone. He confirmed the plan is home with hospice at discharge. Explained that she continues to do poorly with failure to thrive, little appetite, difficulty taking meds, etc. He voiced understanding. Will focus on comfort until her d/c. Discontinue any nonessential medications. Discontinue insulins. (4) Acute metabolic encephalopathy: Ongoing (5) Stroke: multiple acute CVAs at time of admission ongoing hemiplegia on right likely embolic from a.fib (6) Dementia: advanced (7) Type 2 diabetes mellitus with microalbuminuria: stop insulins (8) Hypercholesterolemia: stop statin - transitioning to hospice (9) Hypertension: stop anti-hypertensives - transitioning to hospice (10) Carotid artery stenosis: (11) Atrial fibrillation: numerous episodes of rapid a.fib we are transitioning to hospice - thus, deferring on anticoagulation, rate controlling meds, etc Plan son updated by phone focus on comfort until her hospital discharge Home Health Attestation I certify that this patient is under my care and that I, or a physicians social services assistant working with me, had a face to-face encounter that meets the home health bzyw-ls-wymn encounter requirements with this patient. The encounter with the patient was in whole, or in part, for the following medical condition, which is the primary reason for home health care (list medical condition): I certify that, based on my findings, the following services are medically necessary home health services: My clinical findings support the need for the above services because: Further, I certify that my clinical findings support that this patient is homebound (i.e. absences from home require considerable and taxing effort and are for medical reasons or mormonism services or infrequently or of short duration when for other reasons) because: Certification for Home Health Services: Based on the above findings, I certify that this patient is confined to the home and needs intermittent detention care, physical therapy and/or speech therapy or continues to need occupational therapy. The patient is under my care, and I have initiated the establishment of the plan of care. This patient will be followed by a physician who will periodically review the plan of care. Discharge Plan Discharge Items Patient Disposition: Hospice - Home Reason For Visit: NEW ONSET NEUROLOGICAL SYMPTOMS Discharge Diagnosis: 1. stroke with resulting right sided weakness 2. failure to thrive 3. dysphagia (difficulty swallowing) 4. 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 atrial fibrillation 6. dementia 7. transition to hospice at home Activity: As commented below Activity Comment: bedrest or chair (if desired) Non-emergency contact: Primary Care Provider Call non-emergency contact if: you have any medication questions, your symptoms worsen, your pain is not controlled and your pain is worsening Follow-up/Referrals: Sandra Burton MD [Primary Care Provider] - Diet: Regular Diet Texture: Pureed (blended smooth) Addtl Attending Provider Instructions: Mrs Lara was hospitalized at [facility] after suffering strokes. These strokes led to significant disability including right-sided weakness, failure to thrive, difficulty swallowing, etc. Mrs Lara is returning home with her family with hospice services in place. Upon return home if you have any questions, concerns, new problems, uncontrolled symptoms (pain, difficulty breathing, etc) - please contact the hospice agency [facility]. They will be able to address most problems either by phone or with a nurse visit to the house. They are available day and night by phone. Most non-essential medications have been discontinued as it has been difficulty for Mrs Lara to swallow pills. Recommendations - 1. For pain or difficulty breathing - * liquid morphine - 0.25ml by mouth every 4 hours as needed 2. For nausea and/or vomiting - * ondansetron 4mg every 6 hours as needed 3. For anxiety/agitation/difficulty sleeping - * lorazepam 0.5mg every 4 hours as needed 4. For recent left knee and right wrist pain (likely due to "pseudogout") - * prednisone taper - start on 11/06/22; take for 5 days 5. May take tylenol 1000mg every 6 hours as needed for pain or fever, maximum 3000mg in a 24 hour period 6. Drain mohan catheter as needed 7. Diclofenac gel - 4 grams to any joint every 6 hours as needed for pain (knee, wrist, shoulder, ankle, back, etc); this medication is [id number] 8. Again - if you have questions/concerns/new problems/uncontrolled pain or other symptoms - contact the HOSPICE AGENCY [facility] by phone 9. No need to check blood sugars upon return home Mrs Lara - enjoy being home with your family! Pending Studies at Discharge: No Stand-Alone Forms: My [facility], Medications to Prevent Stroke Medications and DC Order Prescriptions: New diclofenac sodium [Voltaren Arthritis Pain] 1 % Gel 4 g EXT BID PRN (Reason: joint pain) Qty: 1 0RF Rx Instructions: may apply to any single joint (knee, shoulder, wrist, back, etc) prednisone 5 mg tablet 5 mg PO DIRECTED Qty: 7 0RF Rx Instructions: start 11/06/22. 2 tabs daily x 2 days, then 1 tab daily x 3 days. ondansetron 4 mg tablet,disintegrating 4 mg PO Q6H PRN (Reason: nausea and vomiting) Qty: 10 0RF lorazepam [Ativan] 0.5 mg tablet 0.5 mg PO Q4H PRN (Reason: anxiety/agitation/sleep) Qty: 20 0RF morphine concentrate 100 mg/5 mL (20 mg/mL) solution 5 mg PO Q4H PRN (Reason: pain or difficulty breathing) Qty: 30 0RF Discontinued losartan 50 mg tablet 50 mg PO DAILY Qty: 90 3RF metformin 1,000 mg tablet 1,000 mg PO DAILY Qty: 90 3RF aspirin 81 mg tablet,delayed release (DR/EC) 81 mg PO DAILY Qty: 0 0RF simvastatin 20 mg tablet 20 mg PO HS Qty: 90 3RF cholecalciferol (vitamin D3) 50 mcg (2,000 unit) Tablet 50 mcg PO DAILY Discharge Orders: Discharge Order (Routine); Ordered 11/05/22 Ordered By: Noam Rose Admission Data Admit Date/Time: 10/16/22 21:01 Attending Provider: Noam Rose Admit Provider: Sharon Sousa Primary Care Provider: Sandra Burton Other Providers: [facility] ; [facility],Home Healthcare ; [facility],Referral Center ; Tamie Keller ; Maximino Dexter ; Rossy Blackwell ; Zenia Perez Coding Diagnoses Left knee pain M25.562 Dysphagia R13.10 Advanced care planning/counseling discussion Z71.89 Acute metabolic encephalopathy G93.41 Stroke I63.9 Dementia F03.90 Type 2 diabetes mellitus with microalbuminuria E11.29; R80.9 Hypercholesterolemia E78.00 Hypertension I10 Carotid artery stenosis I65.29 Atrial fibrillation I48.91
== END 2022-11-05 15:30 | disposition hospice, home (50) | DRG 64 ==
LOC: ED 18:20 → 2N 21:01 → SUATTDRO 21:01 → 2N 23:08